=== PATIENT | male | born 1965 ===

== ENCOUNTER 2017-03-17 16:25 | Inpatient (IN) | payer MEDICARE, OTHER ==
[2017-03-17 17:07] VITALS: BMI 23.2
--- NOTE | 2017-03-17 22:08 | CP.PCM.HP ---
History of Present Illness - History of Present Illness History of Present Illness: PCP: Kayy Cordova MD Chief complaint: left side weakness/left facial droop The patient was seen and examined on the Rehab Unit HPI: The hx was obtained from review of the medical records. He is a 51 years old male with hx of DM II; HTN; Cirrhosis and ESRD on Hemo-dialysis MWF. He was transferred from the [facility] to the rehab Unit at the [facility] for rehabilitation and continued management. He was admitted to the [facility] on 03/12/17 and diagnosed with acute CVA with left Hemiparesis and slurred speech. His speech and motor strength of the left lower extremity is improving. PMH: ESRD MWF; HTN; DM II; Cardiomyopathy; CAD; PAD; Liver cirrhosis; CHF; Asthma; Left eye blindness; Anemia;Arthritis; Gastritis; depression PSH: Amputation of Left toe ( Hallux); Left Arm AV fistula; Left Inguinal hernia repair; Left eye surgery;Knee repair? SH: No smoking; No Alcohol use; No illegal drug use; Live with family FH: states No Family hx Allergies: Penicillin Medication: Reviewed Present on Admission - Present on Admission Any Indicators Present on Admission: No History of DVT/PE: No History of Uncontrolled Diabetes: No Urinary Catheter: No Decubitus Ulcer Present: No Review of Systems - Review of Systems Review of Systems: Review of systems limited because The patient is not answering all questions. - Constitutional Constitutional: absent: Chills, Fever - EENT Eyes: Requires Corrective Lenses. absent: Diplopia Ears: absent: Decreased Hearing Nose/Mouth/Throat: absent: Epistaxis - Cardiovascular Cardiovascular: absent: Chest Pain, Dyspnea - Respiratory Respiratory: absent: Cough - Gastrointestinal Gastrointestinal: Diarrhea. absent: Abdominal Pain, Vomiting - Neurological Neurological: Focal Weakness - Hematologic/Lymphatic Hematologic: absent: Easy Bleeding, Easy Bruising Past Patient History - Infectious Disease Hx of Infectious Diseases: None - Tetanus Immunizations Tetanus Immunization: Unknown - Past Medical History & Family History Past Medical History?: Yes - Past Social History Smoking Status: Never Smoked Chewing Tobacco Use: No Cigar Use: No Alcohol: None Drugs: Denies Home Situation {Lives}: With Family - CARDIAC Hx Cardiac Disorders: Yes Hx Congestive Heart Failure: Yes Hx Hypercholesterolemia: Yes Hx Hypertension: Yes - PULMONARY Hx Asthma: Yes Hx Pneumonia: Yes - NEUROLOGICAL Hx Neurological Disorder: No - HEENT Hx HEENT Problems: Yes Hx Blind: Yes (L eye) Other/Comment: left eye blind, Rt. eye vision blurred, uses eyeglasses for reading - RENAL Hx Chronic Kidney Disease: Yes - ENDOCRINE/METABOLIC Hx Diabetes Mellitus Type 2: Yes - HEMATOLOGICAL/ONCOLOGICAL Hx Anemia: Yes - INTEGUMENTARY Hx Dermatological Problems: No - MUSCULOSKELETAL/RHEUMATOLOGICAL Hx Arthritis: Yes Hx Falls: No - GASTROINTESTINAL Hx Gastritis: Yes - PSYCHIATRIC Hx Anxiety: Yes Hx Depression: Yes Hx Substance Use: No - SURGICAL HISTORY Hx Surgeries: Yes Hx Amputation: Yes (L Hallux amputation 2011) Hx Vascular Access Device: Yes Other/Comment: L inguinal hernia repairs x 2. L eye surgery. Left arm AV fistula - ANESTHESIA Hx Anesthesia: Yes Hx Anesthesia Reactions: No Hx Malignant Hyperthermia: No Meds Allergies/Adverse Reactions: Allergies Allergy/AdvReac Type Severity Reaction Status Date / Time Penicillins Allergy Verified 03/12/17 13:51 Results - Labs Result Diagrams: 03/18/17 05:20 03/18/17 05:20 Assessment & Plan - Assessment and Plan (Free Text) Assessment: #. Acute CVA #. ESRD MWF #. DM II #. CHF #. Cirrhosis #. HTN #.Anemia Plan: 51 years old male with hx of DM II; HTN; Cirrhosis and ESRD on Hemo-dialysis MWF. He was transferred from the [facility] to the rehab Unit at the [facility] for rehabilitation and continued management. He was admitted to the [facility] on 03/12/17 and diagnosed with acute CVA with left Hemiparesis and slurred speech. #. Acute CVA - Consult Dr Murillo [employer] - OT/PT Speech therapy #. ESRD MWF - Consult Dr Mancia [facility] for Dialysis [facility] #. DM II - Regular Insulin sliding scale according to Accucheck #. CHF - Lasix - Isosorbide Mononitrate #. Cirrhosis - Rifaximin - Lactulose #.Anemia of chronic kidney disease - follow Hb #. DVT prophylaxis with Heparin #.Code Status; Full - Date & Time Date: 03/17/17 Time: 22:08
[2017-03-18] MEDS: Fluticasone-Salmeterol 250-50mcg Diskus INH SCH ×3 (01:44→21:14)
[2017-03-18 05:54] LABS: BASO # 0.1 K/uL (0.0-0.2); BASO % 1.4 % (0.0-2.0); EOS # 0.2 K/uL (0.0-0.7); EOS % 2.5 % (0.0-4.0); HEMATOCRIT 28.6 % (35.0-51.0); MEAN CELL VOLUME 93.4 fl (80.0-94.0); MEAN CORPUSCULAR HEMOGLOBIN 31.2 pg (27.0-31.0); MEAN CORPUSCULAR HGB CONC 33.4 g/dL (33.0-37.0); MEAN PLATELET VOLUME 10.6 fl (7.2-11.7); MONO # 1.1 K/uL (0.0-0.8); NEUT % 63.1 % (50.0-75.0); NRBC % 0.4 % (0.0-0.0); RED CELL DISTRIBUTION WIDTH 16.6 % (11.5-14.5); WHITE BLOOD COUNT 6.3 K/uL (4.8-10.8)
[2017-03-18 06:12] LABS: ALB/GLOB RATIO 0.7 (1.0-2.1); BILIRUBIN,TOTAL 7.8 mg/dl (0.2-1.3); POTASSIUM 3.9 MMOL/L (3.6-5.0); TOTAL PROTEIN 7.3 G/DL (6.3-8.2)
[2017-03-18 06:14] LABS: PARTIAL THROMBOPLASTIN TIME 39.1 Seconds (25.6-37.1)
[2017-03-18] MEDS: Cholestyramine 4 gm/Pkt UD PO SCH ×3 (06:30→21:17)
[2017-03-18] MEDS: Insulin Regular 100 units/ml SC SCH ×4 (06:30→22:41)
[2017-03-18] MEDS ORDERED: Calcium Acetate 667 MG Capsule PO SCH (09:00)
[2017-03-18] MEDS ORDERED: VITAMIN C PO SCH (09:00)
[2017-03-18] MEDS ORDERED: VITAMIN B COMPLEX PO SCH (09:00)
[2017-03-18] MEDS ORDERED: Patient's Own Med (Multivitamins [Hexavitamin] 1 TAB) PO SCH (09:00)
[2017-03-18] MEDS: Ergocalciferol 50,000 Intl Units Cap PO SCH (09:05)
[2017-03-18] MEDS: Multivitamin With Minerals Tab PO SCH (09:06)
--- NOTE | 2017-03-18 09:57 | CP.PCM.CON ---
History of Present Illness - History of Present Illness History of Present Illness: This patient who is 51 years of age I was called to see him for chronic kidney disease on dialysis who is transferred from [facility] because of the left CVA weakness and for further treatment for dialysis. Patient transferred for acute rehabilitation Patient stated that he has been on dialysis since August of this year. And he is being receiving treatments 3 times a week Wednesday And he goes outpatient to [facility] PMH: ESRD MWF; HTN; DM II; Cardiomyopathy; CAD; PAD; Liver cirrhosis; CHF; Asthma; Left eye blindness; Anemia;Arthritis; Gastritis; depression PSH: Amputation of Left toe ( Hallux); Left Arm AV fistula; Left Inguinal hernia repair; Left eye surgery;Knee repair? SH: No smoking; No Alcohol use; No illegal drug use; Live with family FH: states No Family hx Allergies: Penicillin Review of Systems - Constitutional Constitutional: As Per HPI, Weakness. absent: Chills, Excessive Sweating - EENT Eyes: As Per HPI, Blurred Vision Nose/Mouth/Throat: As Per HPI - Cardiovascular Cardiovascular: As Per HPI. absent: Chest Pain, Chest Pain at Rest, Dyspnea - Respiratory Respiratory: absent: Cough - Gastrointestinal Gastrointestinal: absent: Abdominal Pain, Coffee Ground Emesis - Genitourinary Genitourinary: Nocturia. absent: Pyuria - Reproductive: Male Reproductive:Male: As Per HPI - Musculoskeletal Musculoskeletal: As Per HPI, Abnormal Gait, Muscle Weakness - Neurological Neurological: As Per HPI, Abnormal Gait - Psychiatric Psychiatric: As Per HPI - Hematologic/Lymphatic Hematologic: absent: Easy Bleeding Past Patient History - Infectious Disease Hx of Infectious Diseases: None - Tetanus Immunizations Tetanus Immunization: Unknown - Past Medical History & Family History Past Medical History?: Yes - Past Social History Smoking Status: Never Smoked Chewing Tobacco Use: No Cigar Use: No Alcohol: None Drugs: Denies Home Situation {Lives}: With Family - CARDIAC Hx Cardiac Disorders: Yes Hx Congestive Heart Failure: Yes Hx Hypercholesterolemia: Yes Hx Hypertension: Yes - PULMONARY Hx Asthma: Yes Hx Pneumonia: Yes - NEUROLOGICAL Hx Neurological Disorder: No - HEENT Hx HEENT Problems: Yes Hx Blind: Yes (L eye) Other/Comment: left eye blind, Rt. eye vision blurred, uses eyeglasses for reading - RENAL Hx Chronic Kidney Disease: Yes - ENDOCRINE/METABOLIC Hx Diabetes Mellitus Type 2: Yes - HEMATOLOGICAL/ONCOLOGICAL Hx Anemia: Yes - INTEGUMENTARY Hx Dermatological Problems: No - MUSCULOSKELETAL/RHEUMATOLOGICAL Hx Arthritis: Yes Hx Falls: No - GASTROINTESTINAL Hx Gastritis: Yes - PSYCHIATRIC Hx Anxiety: Yes Hx Depression: Yes Hx Substance Use: No - SURGICAL HISTORY Hx Surgeries: Yes Hx Amputation: Yes (L Hallux amputation 2011) Hx Vascular Access Device: Yes Other/Comment: L inguinal hernia repairs x 2. L eye surgery. Left arm AV fistula - ANESTHESIA Hx Anesthesia: Yes Hx Anesthesia Reactions: No Hx Malignant Hyperthermia: No Meds Allergies/Adverse Reactions: Allergies Allergy/AdvReac Type Severity Reaction Status Date / Time Penicillins Allergy Verified 03/12/17 13:51 - Medications Medications: Current Medications Acetaminophen (Tylenol 325mg Tab) 650 mg PO Q6 PRN PRN Reason: Headache Last Admin: 03/18/17 09:09 Dose: 650 mg Aspirin (Ecotrin) 81 mg PO DAILY [facility] Last Admin: 03/18/17 09:04 Dose: 81 mg Atorvastatin Calcium (Lipitor) 20 mg PO HS [facility] Calcitriol (Rocaltrol) 0.25 mcg PO DAILY [facility] Last Admin: 03/18/17 09:06 Dose: 0.25 mcg Calcium Acetate (Phoslo) 667 mg PO TID [facility] Cholestyramine Resin (Questran) 4 gm PO Q8 [facility] Last Admin: 03/18/17 06:30 Dose: 4 gm Clopidogrel Bisulfate (Plavix) 75 mg PO DAILY [facility] Last Admin: 03/18/17 09:05 Dose: 75 mg Ergocalciferol (Drisdol 50,000 Intl Units Cap) 1 cap PO QWK [facility] Last Admin: 03/18/17 09:05 Dose: 1 cap Famotidine (Pepcid) 20 mg PO 2100 [facility] Gabapentin (Neurontin) 300 mg PO DAILY [facility] Last Admin: 03/18/17 09:07 Dose: 300 mg Heparin Sodium (Porcine) (Heparin) 5,000 units SC Q8 [facility] PRN Reason: Protocol Last Admin: 03/18/17 06:29 Dose: 5,000 units Hydralazine HCl (Apresoline) 25 mg PO Q8 [facility] Last Admin: 03/18/17 06:28 Dose: 25 mg Insulin Human Regular (Humulin R) 0 units SC ACHS [facility] PRN Reason: Protocol Last Admin: 03/18/17 06:30 Dose: Not Given Isosorbide Mononitrate (Imdur) 60 mg PO DAILY [facility] Last Admin: 03/18/17 09:05 Dose: 60 mg Lactulose (Enulose) 20 gm PO Q8 [facility] Last Admin: 03/18/17 06:27 Dose: Not Given Multivitamins/Minerals (Therapeutic-M Tab) 1 tab PO DAILY [facility] Last Admin: 03/18/17 09:06 Dose: 1 tab Rifaximin (Xifaxan) 550 mg PO BID [facility] PRN Reason: Protocol Last Admin: 03/18/17 09:04 Dose: 550 mg Fluticasone/Salmeterol (Advair Diskus 250/50) 1 puff INH Q12 [facility] Last Admin: 03/18/17 09:03 Dose: 1 puff Physical Exam - Constitutional Appears: No Acute Distress - ENT Exam ENT Exam: Mucous Membranes Moist - Respiratory Exam Respiratory Exam: NORMAL BREATHING PATTERN. absent: Rales - Cardiovascular Exam Cardiovascular Exam: absent: JVD, Rubs - GI/Abdominal Exam GI & Abdominal Exam: Distended, Normal Bowel Sounds Additional comments: ascites - Extremities Exam Extremities exam: Negative for: calf tenderness - Back Exam Back exam: absent: CVA tenderness (L), CVA tenderness (R) - Neurological Exam Neurological exam: Abnormal Gait, Alert - Psychiatric Exam Additional comments: weakness on the left side Results - Vital Signs Recent Vital Signs: Last Vital Signs Temp 97.1 F L 03/18/17 09:23 Pulse 87 03/18/17 09:23 Resp 19 03/18/17 09:23 BP 128/79 03/18/17 09:23 Pulse Ox 96 03/18/17 09:23 - Labs Result Diagrams: 03/18/17 05:20 03/18/17 05:20 Labs: Laboratory Results - last 24 hr 03/18/17 03/18/17 03/18/17 05:19 05:20 05:20 WBC 6.3 RBC 3.07 L Hgb 9.6 L Hct 28.6 L MCV 93.4 MCH 31.2 H MCHC 33.4 RDW 16.6 H Plt Count 133 MPV 10.6 Neut % (Auto) 63.1 Lymph % (Auto) 16.0 L Perkins % (Auto) 17.0 H Eos % (Auto) 2.5 Baso % (Auto) 1.4 Neut # 4.0 Lymph # 1.0 [place] # 1.1 H Eos # 0.2 Baso # 0.1 PT INR APTT Sodium 141 Potassium 3.9 Chloride 101 Carbon Dioxide 29 Anion Gap 15 BUN 22 H Creatinine 2.4 H Est GFR ( Amer) 35 Est GFR (Non-Af Amer) 29 POC Glucose (mg/dL) 103 Random Glucose 94 Calcium 9.0 Total Bilirubin 7.8 H AST 42 ALT 26 Alkaline Phosphatase 1125 H Total Protein 7.3 Albumin 2.9 L Globulin 4.4 H Albumin/Globulin Ratio 0.7 L 03/18/17 05:20 WBC RBC Hgb Hct MCV MCH MCHC RDW Plt Count MPV Neut % (Auto) Lymph % (Auto) [place] % (Auto) Eos % (Auto) Baso % (Auto) Neut # Lymph # [place] # Eos # Baso # PT 17.3 H INR 1.5 H APTT 39.1 H Sodium Potassium Chloride Carbon Dioxide Anion Gap BUN Creatinine Est GFR ( Amer) Est GFR (Non-Af Amer) POC Glucose (mg/dL) Random Glucose Calcium Total Bilirubin AST ALT Alkaline Phosphatase Total Protein Albumin Globulin Albumin/Globulin Ratio Assessment & Plan (1) CKD (chronic kidney disease) requiring chronic dialysis Assessment and Plan: Patient with end stage renal disease on dialysis Wednesday transferred for acute rehabilitation for acute CVA. Patient has multitude of medical problem related to liver cirrhosis ascites Diabetes among other things as noted in the H and P The plan from renal standpoint of view we will proceed with the dialysis I reviewed the blood work serum creatinine not very high but the patient has ascites. Status: Acute (2) CVA (cerebral vascular accident) Status: Acute
--- NOTE | 2017-03-18 17:04 | PCM.OPOC ---
Physiatry Overall Plan of Care - Overall Plan of Care Estimated Length of Stay in Weeks: 3 Rehab Impairment: Mobility, Gait, Speech, Balance, Coordination Etiologic Diagnosis: Cerebrovascular Accident Rehab/Medical Prognosis: Fair - Anticipated Interventions Physical Therapy:: Yes Occupational Therapy:: Yes Speech Therapy:: Yes Recreational Therapy:: Yes - Therapy Goals Bed Mobility: Supervision Ambulation: Supervision Functional Positional Changes:: Supervision - Discharge Plan Identification of Barriers to Discharge: Home Situation Discharge Destination: Home
--- NOTE | 2017-03-18 17:08 | CP.PCM.CON ---
History of Present Illness - History of Present Illness History of Present Illness: Dr Murillo PMR consultation on Rory Blanco, born 1965, who has been admitted to [facility] for acute inpatient rehabilitation following a right CVA with left HP. He has multiple medical risk factors. He is right hand dominant. Review of Systems - Constitutional Constitutional: Daytime Sleepiness. absent: Anorexia, Chills - EENT Nose/Mouth/Throat: absent: Nasal Congestion, Nasal Discharge - Cardiovascular Cardiovascular: absent: Chest Pain - Respiratory Respiratory: absent: Cough, Dyspnea - Gastrointestinal Gastrointestinal: Bloating. absent: Abdominal Pain - Neurological Neurological: absent: Abnormal Movements, Radicular Pain - Psychiatric Psychiatric: absent: Anxiety Past Patient History - Infectious Disease Hx of Infectious Diseases: None - Tetanus Immunizations Tetanus Immunization: Unknown - Past Medical History & Family History Past Medical History?: Yes - Past Social History Smoking Status: Never Smoked Chewing Tobacco Use: No Cigar Use: No Alcohol: None Drugs: Denies Home Situation {Lives}: With Family - CARDIAC Hx Cardiac Disorders: Yes Hx Hypercholesterolemia: Yes Hx Hypertension: Yes - PULMONARY Hx Asthma: Yes Hx Pneumonia: Yes - NEUROLOGICAL HX Cerebrovascular Accident: Yes - HEENT Hx HEENT Problems: Yes Hx Blind: Yes (L eye) Other/Comment: left eye blind, Rt. eye vision blurred, uses eyeglasses for reading - RENAL Hx Renal Failure: Yes - ENDOCRINE/METABOLIC Hx Diabetes Mellitus Type 2: Yes - HEMATOLOGICAL/ONCOLOGICAL Hx Anemia: Yes - INTEGUMENTARY Hx Dermatological Problems: No - MUSCULOSKELETAL/RHEUMATOLOGICAL Hx Arthritis: Yes Hx Falls: No - GASTROINTESTINAL Hx Gastritis: Yes - PSYCHIATRIC Hx Anxiety: Yes Hx Depression: Yes Hx Substance Use: No - SURGICAL HISTORY Hx Surgeries: Yes Hx Amputation: Yes (L Hallux amputation 2011) Hx Vascular Access Device: Yes Other/Comment: L inguinal hernia repairs x 2. L eye surgery. Left arm AV fistula - ANESTHESIA Hx Anesthesia: Yes Hx Anesthesia Reactions: No Hx Malignant Hyperthermia: No Meds Allergies/Adverse Reactions: Allergies Allergy/AdvReac Type Severity Reaction Status Date / Time Penicillins Allergy Verified 03/12/17 13:51 - Medications Medications: Current Medications Acetaminophen (Tylenol 325mg Tab) 650 mg PO Q6 PRN PRN Reason: Headache Last Admin: 03/18/17 09:09 Dose: 650 mg Aspirin (Ecotrin) 81 mg PO DAILY [facility] Last Admin: 03/18/17 09:04 Dose: 81 mg Atorvastatin Calcium (Lipitor) 20 mg PO HS [facility] Calcitriol (Rocaltrol) 0.25 mcg PO DAILY [facility] Last Admin: 03/18/17 09:06 Dose: 0.25 mcg Calcium Acetate (Phoslo) 667 mg PO TID [facility] Last Admin: 03/18/17 16:57 Dose: 667 mg Cholestyramine Resin (Questran) 4 gm PO Q8 [facility] Last Admin: 03/18/17 14:26 Dose: 4 gm Clopidogrel Bisulfate (Plavix) 75 mg PO DAILY [facility] Last Admin: 03/18/17 09:05 Dose: 75 mg Epoetin Brian (Procrit) 4,000 unit IV MWF [facility] Ergocalciferol (Drisdol 50,000 Intl Units Cap) 1 cap PO QWK [facility] Last Admin: 03/18/17 09:05 Dose: 1 cap Famotidine (Pepcid) 20 mg PO 2100 [facility] Gabapentin (Neurontin) 300 mg PO DAILY [facility] Last Admin: 03/18/17 09:07 Dose: 300 mg Heparin Sodium (Porcine) (Heparin) 5,000 units SC Q8 [facility] PRN Reason: Protocol Last Admin: 03/18/17 14:26 Dose: 5,000 units Hydralazine HCl (Apresoline) 25 mg PO Q8 [facility] Last Admin: 03/18/17 14:20 Dose: 25 mg Insulin Human Regular (Humulin R) 0 units SC ACHS [facility] PRN Reason: Protocol Last Admin: 03/18/17 16:56 Dose: 1 unit Isosorbide Mononitrate (Imdur) 60 mg PO DAILY [facility] Last Admin: 03/18/17 09:05 Dose: 60 mg Lactulose (Enulose) 20 gm PO Q8 [facility] Last Admin: 03/18/17 14:27 Dose: 20 gm Multivitamins/Minerals (Therapeutic-M Tab) 1 tab PO DAILY [facility] Last Admin: 03/18/17 09:06 Dose: 1 tab Rifaximin (Xifaxan) 550 mg PO BID [facility] PRN Reason: Protocol Last Admin: 03/18/17 16:57 Dose: 550 mg Fluticasone/Salmeterol (Advair Diskus 250/50) 1 puff INH Q12 [facility] Last Admin: 03/18/17 09:03 Dose: 1 puff Physical Exam - Constitutional Appears: Non-toxic, No Acute Distress - Head Exam Head Exam: ATRAUMATIC, NORMAL INSPECTION, NORMOCEPHALIC - Eye Exam Eye Exam: EOMI - ENT Exam ENT Exam: Mucous Membranes Moist - Respiratory Exam Respiratory Exam: NORMAL BREATHING PATTERN - Cardiovascular Exam Cardiovascular Exam: REGULAR RHYTHM - GI/Abdominal Exam GI & Abdominal Exam: Normal Bowel Sounds - Extremities Exam Extremities exam: Negative for: calf tenderness - Neurological Exam Neurological exam: Alert - Psychiatric Exam Psychiatric exam: Flat Affect Results - Vital Signs Recent Vital Signs: Last Vital Signs Temp 97.1 F L 03/18/17 09:23 Pulse 77 03/18/17 14:20 Resp 19 03/18/17 09:23 BP 131/82 03/18/17 14:20 Pulse Ox 96 03/18/17 09:23 - Labs Result Diagrams: 03/18/17 05:20 03/18/17 05:20 Labs: Laboratory Results - last 24 hr 03/18/17 03/18/17 03/18/17 05:19 05:20 05:20 WBC 6.3 RBC 3.07 L Hgb 9.6 L Hct 28.6 L MCV 93.4 MCH 31.2 H MCHC 33.4 RDW 16.6 H Plt Count 133 MPV 10.6 Neut % (Auto) 63.1 Lymph % (Auto) 16.0 L [place] % (Auto) 17.0 H Eos % (Auto) 2.5 Baso % (Auto) 1.4 Neut # 4.0 Lymph # 1.0 [place] # 1.1 H Eos # 0.2 Baso # 0.1 PT INR APTT Sodium 141 Potassium 3.9 Chloride 101 Carbon Dioxide 29 Anion Gap 15 BUN 22 H Creatinine 2.4 H Est GFR ( Amer) 35 Est GFR (Non-Af Amer) 29 POC Glucose (mg/dL) 103 Random Glucose 94 Calcium 9.0 Phosphorus Total Bilirubin 7.8 H AST 42 ALT 26 Alkaline Phosphatase 1125 H Total Protein 7.3 Albumin 2.9 L Globulin 4.4 H Albumin/Globulin Ratio 0.7 L 03/18/17 03/18/17 03/18/17 05:20 05:20 12:04 WBC RBC Hgb Hct MCV MCH MCHC RDW Plt Count MPV Neut % (Auto) Lymph % (Auto) [place] % (Auto) Eos % (Auto) Baso % (Auto) Neut # Lymph # [place] # Eos # Baso # PT 17.3 H INR 1.5 H APTT 39.1 H Sodium Potassium Chloride Carbon Dioxide Anion Gap BUN Creatinine Est GFR ( Amer) Est GFR (Non-Af Amer) POC Glucose (mg/dL) 184 H Random Glucose Calcium Phosphorus 4.0 Total Bilirubin AST ALT Alkaline Phosphatase Total Protein Albumin Globulin Albumin/Globulin Ratio 03/18/17 15:31 WBC RBC Hgb Hct MCV MCH MCHC RDW Plt Count MPV Neut % (Auto) Lymph % (Auto) [place] % (Auto) Eos % (Auto) Baso % (Auto) Neut # Lymph # [place] # Eos # Baso # PT INR APTT Sodium Potassium Chloride Carbon Dioxide Anion Gap BUN Creatinine Est GFR ( Amer) Est GFR (Non-Af Amer) POC Glucose (mg/dL) 179 H Random Glucose Calcium Phosphorus Total Bilirubin AST ALT Alkaline Phosphatase Total Protein Albumin Globulin Albumin/Globulin Ratio Assessment & Plan - Assessment and Plan (Free Text) Assessment: Patient with prior level of decreased function with left HP, but than developed worsening function and weakness in HD new right BG infarct Manual motor testing is better than gravity at about 3+/5 but inconsistent PT noted that he was max A for most activities PT/OT to continue to help increase functional independence Team conference for d/c planning Pain: controlled Vascular: no evidence of DVT GI: No evidence of constipation or diarrhea Patient is an excellent acute rehabilitation candidate and will have focused speech, PT, OT and recreational therapy to help facilitate a safe and appropriate d/c plan impairment code 01.1
[2017-03-18] MEDS ORDERED: Patient's Own Med (Rosuvastatin Calcium [Crestor] 10 MG) PO SCH (22:00)
[2017-03-19] MEDS: Cholestyramine 4 gm/Pkt UD PO SCH ×3 (06:07→23:12)
[2017-03-19] MEDS: Fluticasone-Salmeterol 250-50mcg Diskus INH SCH ×2 (08:30→23:07)
[2017-03-19] MEDS: Multivitamin With Minerals Tab PO SCH (08:31)
[2017-03-19] MEDS: Insulin Regular 100 units/ml SC SCH ×4 (08:32→21:35)
--- NOTE | 2017-03-19 12:07 | CP.PCM.PN ---
Subjective - Date & Time of Evaluation Date of Evaluation: 03/19/17 Time of Evaluation: 12:03 - Subjective Subjective: this is a 51-year-old male seen and examined at bedside for acute CVA, ESRD. Patient has no complaints this morning states he is feeling well. Is tolerating therapy well. Denies chest pain any shortness of breath. Hemodynamically stable. Objective - Vital Signs/Intake and Output Vital Signs (last 24 hours): Temp Pulse Resp BP Pulse Ox 98.0 F 83 20 136/87 97 03/18/17 20:08 03/19/17 06:07 03/18/17 20:08 03/19/17 06:07 03/18/17 20:08 Physical exam: Constitutional- cooperative, awake, alert. Head- NCAT, PERRL Eye- PERRL, normal accommodation ENT- normal exam, MMM. Neck- normal inspection, supple, no JVD Respiratory- CTAB, no wheezes rales rhonchi Cardiovascular- RRR, +S1, +S2 no MRG GI/Abdominal- normal bowel sounds, soft, no mass, no hsm Skin- warm, dry Extremities Exam- normal capillary refill, normal inspection Neurological Exam- alert, awake Psych- normal mood, normal affect - Medications Medications: Current Medications Acetaminophen (Tylenol 325mg Tab) 650 mg PO Q6 PRN PRN Reason: pain 1-10 Aspirin (Ecotrin) 81 mg PO DAILY [facility] Last Admin: 03/19/17 08:31 Dose: 81 mg Atorvastatin Calcium (Lipitor) 20 mg PO HS [facility] Last Admin: 03/18/17 21:16 Dose: 20 mg Calcitriol (Rocaltrol) 0.25 mcg PO DAILY [facility] Last Admin: 03/19/17 08:31 Dose: 0.25 mcg Calcium Acetate (Phoslo) 667 mg PO TID [facility] Last Admin: 03/19/17 08:31 Dose: 667 mg Cholestyramine Resin (Questran) 4 gm PO Q8 [facility] Last Admin: 03/19/17 06:07 Dose: 4 gm Clopidogrel Bisulfate (Plavix) 75 mg PO DAILY [facility] Last Admin: 03/19/17 08:31 Dose: 75 mg Epoetin Brian (Procrit) 4,000 unit IV MWF [facility] Ergocalciferol (Drisdol 50,000 Intl Units Cap) 1 cap PO QWK [facility] Last Admin: 03/18/17 09:05 Dose: 1 cap Famotidine (Pepcid) 20 mg PO 2100 [facility] Last Admin: 03/18/17 21:16 Dose: 20 mg Gabapentin (Neurontin) 300 mg PO DAILY [facility] Last Admin: 03/19/17 08:31 Dose: 300 mg Heparin Sodium (Porcine) (Heparin) 5,000 units SC Q8 [facility] PRN Reason: Protocol Last Admin: 03/19/17 06:07 Dose: 5,000 units Hydralazine HCl (Apresoline) 25 mg PO Q8 [facility] Last Admin: 03/19/17 06:07 Dose: 25 mg Insulin Human Regular (Humulin R) 0 units SC ACHS [facility] PRN Reason: Protocol Last Admin: 03/19/17 08:32 Dose: Not Given Isosorbide Mononitrate (Imdur) 60 mg PO DAILY [facility] Last Admin: 03/19/17 08:32 Dose: 60 mg Lactulose (Enulose) 20 gm PO Q8 [facility] Last Admin: 03/19/17 06:07 Dose: 20 gm Multivitamins/Minerals (Therapeutic-M Tab) 1 tab PO DAILY [facility] Last Admin: 03/19/17 08:31 Dose: 1 tab Rifaximin (Xifaxan) 550 mg PO BID [facility] PRN Reason: Protocol Last Admin: 03/19/17 08:34 Dose: 550 mg Fluticasone/Salmeterol (Advair Diskus 250/50) 1 puff INH Q12 [facility] Last Admin: 03/19/17 08:30 Dose: 1 puff - Labs Labs: 03/18/17 05:20 03/18/17 05:20 PT 17.3 Seconds (9.8-13.1) H 03/18/17 05:20 INR 1.5 (0.9-1.2) H 03/18/17 05:20 APTT 39.1 Seconds (25.6-37.1) H 03/18/17 05:20 Assessment and Plan - Assessment and Plan (Free Text) Plan: 51 years old male with hx of DM II; HTN; Cirrhosis and ESRD on Hemo-dialysis MWF. He was transferred from the [facility] to the rehab Unit at the [facility] for rehabilitation and continued management. He was admitted to the [facility] on 03/12/17 and diagnosed with acute CVA with left Hemiparesis and slurred speech. #. Acute CVA - Consult Dr Murillo Copyright Manager - OT/PT Speech therapy continue aspirin and Plavix, and Lipitor #. ESRD MWF - Consult Dr Mancia Nephrology for Dialysis [facility] Continue PhosLo, calcitriol, Procrit #. DM II - Regular Insulin sliding scale according to Accucheck #. CHF - Lasix - Isosorbide Mononitrate #. Cirrhosis - Rifaximin - Lactulose Continue lactulose Continue cholestyramine #. COPD Continue Advair #.Anemia of chronic kidney disease - follow Hb #. DVT prophylaxis with Heparin #.Code Status; Full
--- NOTE | 2017-03-19 14:04 | CP.PCM.PN ---
Subjective - Date & Time of Evaluation Date of Evaluation: 03/19/17 Time of Evaluation: 14:01 - Subjective Subjective: Patient sitting up in the chair and receiving physiotherapy Patient is conscious and oriented No shortness of breath or difficulty breathing Appetite is reported to be okay Objective - Vital Signs/Intake and Output Vital Signs (last 24 hours): Temp Pulse Resp BP Pulse Ox 98 F 82 20 130/70 98 03/19/17 10:00 03/19/17 10:00 03/19/17 10:00 03/19/17 10:00 03/19/17 10:00 - Medications Medications: Current Medications Acetaminophen (Tylenol 325mg Tab) 650 mg PO Q6 PRN PRN Reason: pain 1-10 Aspirin (Ecotrin) 81 mg PO DAILY [facility] Last Admin: 03/19/17 08:31 Dose: 81 mg Atorvastatin Calcium (Lipitor) 20 mg PO HS [facility] Last Admin: 03/18/17 21:16 Dose: 20 mg Calcitriol (Rocaltrol) 0.25 mcg PO DAILY [facility] Last Admin: 03/19/17 08:31 Dose: 0.25 mcg Calcium Acetate (Phoslo) 667 mg PO TID [facility] Last Admin: 03/19/17 08:31 Dose: 667 mg Cholestyramine Resin (Questran) 4 gm PO Q8 [facility] Last Admin: 03/19/17 06:07 Dose: 4 gm Clopidogrel Bisulfate (Plavix) 75 mg PO DAILY [facility] Last Admin: 03/19/17 08:31 Dose: 75 mg Epoetin Brian (Procrit) 4,000 unit IV MWF [facility] Ergocalciferol (Drisdol 50,000 Intl Units Cap) 1 cap PO QWK [facility] Last Admin: 03/18/17 09:05 Dose: 1 cap Famotidine (Pepcid) 20 mg PO 2100 [facility] Last Admin: 03/18/17 21:16 Dose: 20 mg Gabapentin (Neurontin) 300 mg PO DAILY [facility] Last Admin: 03/19/17 08:31 Dose: 300 mg Heparin Sodium (Porcine) (Heparin) 5,000 units SC Q8 [facility] PRN Reason: Protocol Last Admin: 03/19/17 13:25 Dose: 5,000 units Hydralazine HCl (Apresoline) 25 mg PO Q8 [facility] Last Admin: 03/19/17 06:07 Dose: 25 mg Insulin Human Regular (Humulin R) 0 units SC ACHS [facility] PRN Reason: Protocol Last Admin: 03/19/17 11:30 Dose: 3 unit Isosorbide Mononitrate (Imdur) 60 mg PO DAILY [facility] Last Admin: 03/19/17 08:32 Dose: 60 mg Lactulose (Enulose) 20 gm PO Q8 [facility] Last Admin: 03/19/17 13:25 Dose: 20 gm Multivitamins/Minerals (Therapeutic-M Tab) 1 tab PO DAILY [facility] Last Admin: 03/19/17 08:31 Dose: 1 tab Rifaximin (Xifaxan) 550 mg PO BID [facility] PRN Reason: Protocol Last Admin: 03/19/17 08:34 Dose: 550 mg Fluticasone/Salmeterol (Advair Diskus 250/50) 1 puff INH Q12 [facility] Last Admin: 03/19/17 08:30 Dose: 1 puff - Labs Labs: 03/18/17 05:20 03/18/17 05:20 PT 17.3 Seconds (9.8-13.1) H 03/18/17 05:20 INR 1.5 (0.9-1.2) H 03/18/17 05:20 APTT 39.1 Seconds (25.6-37.1) H 03/18/17 05:20 - Constitutional Appears: No Acute Distress - ENT Exam ENT Exam: Mucous Membranes Moist - Respiratory Exam Respiratory Exam: NORMAL BREATHING PATTERN. absent: Chest Wall Tenderness, Rales, Wheezes - Cardiovascular Exam Cardiovascular Exam: absent: JVD, Rubs - GI/Abdominal Exam GI & Abdominal Exam: Soft, Normal Bowel Sounds. absent: Guarding - Extremities Exam Extremities Exam: absent: Calf Tenderness - Back Exam Back Exam: absent: CVA tenderness (L), CVA tenderness (R) - Neurological Exam Neurological Exam: Alert - Psychiatric Exam Psychiatric exam: Normal Affect - Skin Skin Exam: absent: Cyanosis Assessment and Plan (1) CKD (chronic kidney disease) requiring chronic dialysis Assessment & Plan: End stage renal disease on maintenance hemodialysis 3 times a week as outpatient Patient scheduled to have hemodialysis in about one hour or so after completing physiotherapy Patient was admitted with CVA Blood pressure noted Medications reviewed Discussed with the nurse in the floor Also discussed the case with the dialysis nurse The rest of the medical problem as noted ESRD MWF; HTN; DM II; Cardiomyopathy; CAD; PAD; Liver cirrhosis; CHF; Asthma; Left eye blindness; Anemia;Arthritis; Gastritis; depression PSH: Amputation of Left toe ( [place]); Left Arm AV fistula; Left Inguinal hernia repair; Left eye surgery;Knee repair? SH: No smoking; No Alcohol use; No illegal drug use; Live with family Status: Acute (2) CVA (cerebral vascular accident) Status: Acute
[2017-03-19] MEDS: Epoetin Alfa 4000 UNIT/ML Inj IV SCH (18:30)
--- NOTE | 2017-03-19 19:27 | CON ---
DATE: NEUROLOGY CONSULTATION REASON FOR CONSULTATION: Cerebrovascular accident. HISTORY OF PRESENT ILLNESS: The patient is a 51-year-old male who has been asked for evaluation of stroke. The patient was admitted in [facility] with left-sided hemiparesis. The patient is a dialysis patient. The patient was evaluated in the [facility] and was subsequently transferred to [facility] for physical therapy. The patient had almost complete paralysis on the left side; however, it has gotten better over the last few days. The speech is still slightly slurred. He denies any headaches or dizziness. Denies any other complaints. REVIEW OF SYSTEMS: Denies any headache, dizziness, chest pain, shortness of breath, abdominal pain, constipation, diarrhea, cough, sputum production. Positive for weakness on the left side. PAST MEDICAL HISTORY: Includes end-stage renal disease, on hemodialysis; hypertension; diabetes mellitus; peripheral artery disease; liver cirrhosis; asthma; left eye blindness; and depression. PAST SURGICAL HISTORY: Include amputation of the left toe, left arm AV fistula, left inguinal hernia repair, left eye surgery. CURRENT MEDICATIONS: Include hydralazine, ergocalciferol, aspirin, lactulose, subcutaneous heparin, insulin, isosorbide mononitrate, Lipitor, Neurontin, famotidine, Plavix, cholestyramine, multivitamin, rifaximin, and Tylenol p.r.n. ALLERGIES: PENICILLIN. SOCIAL HISTORY: Denies smoking, use of alcohol, or illicit drugs. FAMILY HISTORY: Reviewed and noncontributory to the case. PHYSICAL EXAMINATION: GENERAL: The patient is a middle-aged male, sitting in no acute distress. VITAL SIGNS: His blood pressure is 130/70, heart rate is 82 per minute, breathing at a rate of 16 per minute, temperature is 98 degrees Fahrenheit. HEENT: Normocephalic and atraumatic. NECK: Supple. There are no carotid bruits. LUNGS: Clear. CARDIOVASCULAR SYSTEM: S1 and S2 audible. No murmurs. ABDOMEN: Soft and nontender. Bowel sounds present. NEUROLOGIC: Mental status: The patient is awake, alert, oriented to time, place and person. Speech is slightly dysarthric. He follows all simple commands. Cranial nerves: Extraocular movements are intact. There is a slight decrease in nasolabial fold on the left side. Tongue is midline. Motor: Tone is normal. There is slight left hemiparesis with power about 3 to 4/5 in the upper extremity and 3/5 in the lower extremity. Plantars downgoing on the right, left toe is amputated. LABORATORY DATA: Reviewed. Shows WBC 6.3, hemoglobin 9.6, hematocrit 28.6, and platelets of 133. Sodium is 141, potassium 3.9, chloride 101, carbon dioxide 29, BUN of 22, creatinine 2.4, and glucose of 94. IMPRESSION: 1. Cerebrovascular accident with right basal ganglionic infarct with left hemiparesis. 2. End-stage renal disease, on hemodialysis. RECOMMENDATIONS: 1. The patient to be continued on aspirin and Plavix. 2. The patient also to be continued on statins. 3. The patient has shown improvement in his left-sided weakness. 4. The patient to have aggressive physical therapy. 5. Please continue other treatment and supportive care. Thank you for the opportunity to participate in the care of this patient. Tom Eller MD
[2017-03-20] MEDS: Cholestyramine 4 gm/Pkt UD PO SCH ×3 (05:10→21:50)
[2017-03-20] MEDS: Insulin Regular 100 units/ml SC SCH ×5 (06:40→21:15)
[2017-03-20] MEDS: Fluticasone-Salmeterol 250-50mcg Diskus INH SCH ×2 (08:33→21:50)
[2017-03-20] MEDS: Multivitamin With Minerals Tab PO SCH (08:34)
[2017-03-20 13:38] LABS: BASO # 0.1 K/uL (0.0-0.2); EOS # 0.1 K/uL (0.0-0.7); EOS % 1.4 % (0.0-4.0); HEMATOCRIT 31.5 % (35.0-51.0); LYMPH # 1.2 K/uL (1.0-4.3); LYMPH % 17.6 % (20.0-40.0); MEAN CELL VOLUME 91.8 fl (80.0-94.0); MEAN CORPUSCULAR HEMOGLOBIN 30.9 pg (27.0-31.0); MEAN CORPUSCULAR HGB CONC 33.7 g/dL (33.0-37.0); MEAN PLATELET VOLUME 11.3 fl (7.2-11.7); MONO % 15.5 % (0.0-10.0); NEUT # 4.3 K/uL (1.8-7.0); NEUT % 63.5 % (50.0-75.0); NRBC % 0.1 % (0.0-0.0); RED CELL DISTRIBUTION WIDTH 16.1 % (11.5-14.5); WHITE BLOOD COUNT 6.8 K/uL (4.8-10.8)
[2017-03-20 13:45] LABS: ALB/GLOB RATIO 0.7 (1.0-2.1); BILIRUBIN,TOTAL 7.7 mg/dl (0.2-1.3); CALCIUM 9.2 mg/dL (8.4-10.2)
--- NOTE | 2017-03-20 19:08 | CP.PCM.PN ---
Subjective - Date & Time of Evaluation Date of Evaluation: 03/20/17 Time of Evaluation: 12:20 - Subjective Subjective: Was called from nurse at 12:20 pm that the patient was experiencing chest pain. Came and evaluated patient. He stated that he was having on again off again chest pain feeling like a pressure, moderate in severity, migrating pain. He denies radiation to left arm or up into the left jaw. EKG was performed and showed normal sinus rhythm with nonspecific changes, no acute changes. Troponin was performed and found to be undetectable. Patient's cp shortly thereafter resolved without intervention. Patient's vitals remained stable throughout. He denies sob, weakness, headache, palpitations. Patient is comfortable. Objective - Vital Signs/Intake and Output Vital Signs (last 24 hours): Temp Pulse Resp BP Pulse Ox 96.7 F L 99 H 19 150/100 H 94 L 03/20/17 08:13 03/20/17 13:10 03/20/17 08:13 03/20/17 13:10 03/20/17 08:13 - Medications Medications: Current Medications Acetaminophen (Tylenol 325mg Tab) 650 mg PO Q6 PRN PRN Reason: pain 1-10 Aspirin (Ecotrin) 81 mg PO DAILY [facility] Last Admin: 03/20/17 08:34 Dose: 81 mg Atorvastatin Calcium (Lipitor) 20 mg PO HS [facility] Last Admin: 03/19/17 23:11 Dose: 20 mg Calcitriol (Rocaltrol) 0.25 mcg PO DAILY [facility] Last Admin: 03/20/17 08:34 Dose: 0.25 mcg Calcium Acetate (Phoslo) 667 mg PO TID [facility] Last Admin: 03/20/17 17:16 Dose: 667 mg Cholestyramine Resin (Questran) 4 gm PO Q8 [facility] Last Admin: 03/20/17 14:00 Dose: 4 gm Clopidogrel Bisulfate (Plavix) 75 mg PO DAILY [facility] Last Admin: 03/20/17 08:35 Dose: 75 mg Epoetin Brian (Procrit) 4,000 unit IV MWF [facility] Last Admin: 03/19/17 18:30 Dose: 4,000 unit Ergocalciferol (Drisdol 50,000 Intl Units Cap) 1 cap PO QWK [facility] Last Admin: 03/18/17 09:05 Dose: 1 cap Famotidine (Pepcid) 20 mg PO 2100 [facility] Last Admin: 03/19/17 23:12 Dose: 20 mg Gabapentin (Neurontin) 300 mg PO DAILY [facility] Last Admin: 03/20/17 08:34 Dose: 300 mg Heparin Sodium (Porcine) (Heparin) 5,000 units SC Q8 [facility] PRN Reason: Protocol Last Admin: 03/20/17 13:11 Dose: 5,000 units Hydralazine HCl (Apresoline) 25 mg PO Q8 [facility] Last Admin: 03/20/17 13:10 Dose: 25 mg Insulin Human Regular (Humulin R) 0 units SC ACHS [facility] PRN Reason: Protocol Last Admin: 03/20/17 17:14 Dose: 1 unit Isosorbide Mononitrate (Imdur) 60 mg PO DAILY [facility] Last Admin: 03/20/17 08:36 Dose: 60 mg Lactulose (Enulose) 20 gm PO Q8 [facility] Last Admin: 03/20/17 13:10 Dose: 20 gm Multivitamins/Minerals (Therapeutic-M Tab) 1 tab PO DAILY [facility] Last Admin: 03/20/17 08:34 Dose: 1 tab Rifaximin (Xifaxan) 550 mg PO BID [facility] PRN Reason: Protocol Last Admin: 03/20/17 17:15 Dose: 550 mg Fluticasone/Salmeterol (Advair Diskus 250/50) 1 puff INH Q12 [facility] Last Admin: 03/20/17 08:33 Dose: 1 puff - Labs Labs: 03/20/17 12:30 03/20/17 13:10 PT 17.3 Seconds (9.8-13.1) H 03/18/17 05:20 INR 1.5 (0.9-1.2) H 03/18/17 05:20 APTT 39.1 Seconds (25.6-37.1) H 03/18/17 05:20 - Additional Findings Additional findings: Physical exam: Constitutional- cooperative, awake, alert. Head- NCAT, PERRL Eye- PERRL, normal accommodation ENT- normal exam, MMM. Neck- normal inspection, supple, no JVD Respiratory- CTAB, no wheezes rales rhonchi Cardiovascular- RRR, +S1, +S2 no MRG GI/Abdominal- normal bowel sounds, soft, no mass, no hsm Skin- warm, dry Extremities Exam- normal capillary refill, normal inspection Neurological Exam- alert, stable gait Psych- normal mood, normal affect Assessment and Plan - Assessment and Plan (Free Text) Plan: Assessment and Plan - Assessment and Plan (Free Text) Plan: 51 years old male with hx of DM II; HTN; Cirrhosis and ESRD on Hemo-dialysis MWF. He was transferred from the [facility] to the rehab Unit at the [facility] for rehabilitation and continued management. He was admitted to the [facility] on 03/12/17 and diagnosed with acute CVA with left Hemiparesis and slurred speech. #. 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 Chest pain- unclear etiology - patient hemodynamically stable and comfortable - EKG with no acute changes - Troponin negative - Self resolved - no further workup at this time #. ESRD MWF - Consult Dr Mancia Nephrology for Dialysis [facility] Continue PhosLo, calcitriol, Procrit #. DM II - Regular Insulin sliding scale according to Accucheck #. CHF - Lasix - Isosorbide Mononitrate #. Cirrhosis - Rifaximin - Lactulose Continue lactulose Continue cholestyramine #. COPD Continue Advair #.Anemia of chronic kidney disease - follow Hb #. DVT prophylaxis with Heparin #.Code Status; Full
[2017-03-21] MEDS: Cholestyramine 4 gm/Pkt UD PO SCH ×3 (05:35→21:49)
[2017-03-21] MEDS: Insulin Regular 100 units/ml SC SCH ×4 (06:30→21:00)
[2017-03-21] MEDS: Multivitamin With Minerals Tab PO SCH (08:23)
[2017-03-21] MEDS: Fluticasone-Salmeterol 250-50mcg Diskus INH SCH ×2 (08:24→20:24)
--- NOTE | 2017-03-21 13:27 | CP.PCM.PN ---
Subjective - Date & Time of Evaluation Date of Evaluation: 03/21/17 Time of Evaluation: 13:24 - Subjective Subjective: 51 y/o male with pmhx of ESRD MWF; HTN; DM II; Cardiomyopathy; CAD; PAD; Liver cirrhosis; CHF; Asthma; Left eye blindness; Anemia;Arthritis; Gastritis; depression, seen at bedside after request of podiatry consultation. Patient denies any pain, numbness burning or tingling in his feet. Patient denies any pedal complaints at this time. Patient is resting in bed in NAD and AAOx3. Objective - Vital Signs/Intake and Output Vital Signs (last 24 hours): Temp Pulse Resp BP Pulse Ox 98.7 F 81 19 144/90 98 03/21/17 08:28 03/21/17 08:28 03/21/17 08:28 03/21/17 13:20 03/21/17 08:28 - Medications Medications: Current Medications Acetaminophen (Tylenol 325mg Tab) 650 mg PO Q6 PRN PRN Reason: pain 1-10 Aspirin (Ecotrin) 81 mg PO DAILY [facility] Last Admin: 03/21/17 08:23 Dose: 81 mg Atorvastatin Calcium (Lipitor) 20 mg PO HS [facility] Last Admin: 03/20/17 21:50 Dose: 20 mg Calcitriol (Rocaltrol) 0.25 mcg PO DAILY [facility] Last Admin: 03/21/17 08:23 Dose: 0.25 mcg Calcium Acetate (Phoslo) 667 mg PO TID [facility] Last Admin: 03/21/17 13:20 Dose: 667 mg Cholestyramine Resin (Questran) 4 gm PO Q8 [facility] Last Admin: 03/21/17 13:21 Dose: 4 gm Clopidogrel Bisulfate (Plavix) 75 mg PO DAILY [facility] Last Admin: 03/21/17 08:23 Dose: 75 mg Epoetin Brian (Procrit) 4,000 unit IV MWF [facility] Last Admin: 03/19/17 18:30 Dose: 4,000 unit Ergocalciferol (Drisdol 50,000 Intl Units Cap) 1 cap PO QWK [facility] Last Admin: 03/18/17 09:05 Dose: 1 cap Famotidine (Pepcid) 20 mg PO 2100 [facility] Last Admin: 03/20/17 21:50 Dose: 20 mg Gabapentin (Neurontin) 300 mg PO DAILY [facility] Last Admin: 03/21/17 08:23 Dose: 300 mg Heparin Sodium (Porcine) (Heparin) 5,000 units SC Q8 [facility] PRN Reason: Protocol Last Admin: 03/21/17 13:21 Dose: 5,000 units Hydralazine HCl (Apresoline) 25 mg PO Q8 [facility] Last Admin: 03/21/17 13:20 Dose: 25 mg Insulin Human Regular (Humulin R) 0 units SC ACHS [facility] PRN Reason: Protocol Last Admin: 03/21/17 11:37 Dose: Not Given Isosorbide Mononitrate (Imdur) 60 mg PO DAILY [facility] Last Admin: 03/21/17 08:23 Dose: 60 mg Lactulose (Enulose) 20 gm PO Q8 [facility] Last Admin: 03/21/17 13:21 Dose: 20 gm Multivitamins/Minerals (Therapeutic-M Tab) 1 tab PO DAILY [facility] Last Admin: 03/21/17 08:23 Dose: 1 tab Rifaximin (Xifaxan) 550 mg PO BID [facility] PRN Reason: Protocol Last Admin: 03/21/17 08:24 Dose: 550 mg Fluticasone/Salmeterol (Advair Diskus 250/50) 1 puff INH Q12 [facility] Last Admin: 03/21/17 08:24 Dose: 1 puff - Labs Labs: 03/20/17 12:30 03/20/17 13:10 PT 17.3 Seconds (9.8-13.1) H 03/18/17 05:20 INR 1.5 (0.9-1.2) H 03/18/17 05:20 APTT 39.1 Seconds (25.6-37.1) H 03/18/17 05:20 - Constitutional Appears: Well, Non-toxic, No Acute Distress - Extremities Exam Additional comments: Vasc: palpable DP/PT pulses b/l, TG wnl, CFT < 3 sec to all digits neuro: grossly intact derm: no edema, no erythema, nails are elongated and thickened x 10, no open lesions, no ascending cellulitis, no acute clinical signs of infection ortho: no pain on palpation to elongated toenails, no pain on ROM of ankle, STJ , 1st ray b/l - Neurological Exam Neurological Exam: Alert, Awake, Oriented x3 - Psychiatric Exam Psychiatric exam: Normal Affect, Normal Mood Assessment and Plan - Assessment and Plan (Free Text) Assessment: 51 y/o male with pmhx of ESRD MWF; HTN; DM II; Cardiomyopathy; CAD; PAD; Liver cirrhosis; CHF; Asthma; Left eye blindness; Anemia;Arthritis; Gastritis; depression seen at bedside for painful, elongated toenails Plan: patient evaluated and chart reviewed discussed in detail with attending Dr. Blake labs and vitals reviewed aseptic trimming of nails down to hygienic length x 10 using sterile nippers patient tolerated procedure well with no complications thank you for the consultation. please reconsult as necessary
--- NOTE | 2017-03-21 16:41 | CARD ---
APPROVED REPORT EKG Measurement Heart [id number] <Conclusion> Normal sinus rhythm Possible Left atrial enlargement Rightward axis Nonspecific T wave abnormality Prolonged QT Abnormal ECG
[2017-03-22] MEDS: Cholestyramine 4 gm/Pkt UD PO SCH ×3 (06:02→21:03)
[2017-03-22] MEDS: Insulin Regular 100 units/ml SC SCH ×4 (07:00→21:13)
[2017-03-22] MEDS: Fluticasone-Salmeterol 250-50mcg Diskus INH SCH ×2 (08:21→20:49)
[2017-03-22] MEDS: Multivitamin With Minerals Tab PO SCH (08:22)
--- NOTE | 2017-03-22 11:02 | CP.PCM.PN ---
Subjective - Date & Time of Evaluation Date of Evaluation: 03/22/17 Time of Evaluation: 11:00 - Subjective Subjective: Patient receiving physiotherapy at the acute rehabilitation unit Patient is awake and conscious Appetite reported to be okay Objective - Vital Signs/Intake and Output Vital Signs (last 24 hours): Temp Pulse Resp BP Pulse Ox 98.0 F 88 19 139/75 96 03/22/17 09:13 03/22/17 09:13 03/22/17 09:13 03/22/17 09:13 03/22/17 09:13 - Medications Medications: Current Medications Acetaminophen (Tylenol 325mg Tab) 650 mg PO Q6 PRN PRN Reason: pain 1-10 Aspirin (Ecotrin) 81 mg PO DAILY [facility] Last Admin: 03/22/17 08:23 Dose: 81 mg Atorvastatin Calcium (Lipitor) 20 mg PO HS [facility] Last Admin: 03/21/17 21:50 Dose: 20 mg Calcitriol (Rocaltrol) 0.25 mcg PO DAILY [facility] Last Admin: 03/22/17 08:23 Dose: 0.25 mcg Calcium Acetate (Phoslo) 667 mg PO TID [facility] Last Admin: 03/22/17 08:23 Dose: 667 mg Cholestyramine Resin (Questran) 4 gm PO Q8 [facility] Last Admin: 03/22/17 06:02 Dose: 4 gm Clopidogrel Bisulfate (Plavix) 75 mg PO DAILY [facility] Last Admin: 03/22/17 08:23 Dose: 75 mg Epoetin Brian (Procrit) 4,000 unit IV MWF [facility] Last Admin: 03/19/17 18:30 Dose: 4,000 unit Ergocalciferol (Drisdol 50,000 Intl Units Cap) 1 cap PO QWK [facility] Last Admin: 03/18/17 09:05 Dose: 1 cap Famotidine (Pepcid) 20 mg PO 2100 [facility] Last Admin: 03/21/17 20:24 Dose: 20 mg Gabapentin (Neurontin) 300 mg PO DAILY [facility] Last Admin: 03/22/17 08:24 Dose: 300 mg Heparin Sodium (Porcine) (Heparin) 5,000 units SC Q8 [facility] PRN Reason: Protocol Last Admin: 03/22/17 06:01 Dose: 5,000 units Hydralazine HCl (Apresoline) 25 mg PO Q8 [facility] Last Admin: 03/22/17 06:01 Dose: 25 mg Insulin Human Regular (Humulin R) 0 units SC ACHS [facility] PRN Reason: Protocol Last Admin: 03/22/17 07:00 Dose: 1 unit Isosorbide Mononitrate (Imdur) 60 mg PO DAILY [facility] Last Admin: 03/22/17 08:23 Dose: 60 mg Lactulose (Enulose) 20 gm PO Q8 [facility] Last Admin: 03/22/17 06:01 Dose: 20 gm Multivitamins/Minerals (Therapeutic-M Tab) 1 tab PO DAILY [facility] Last Admin: 03/22/17 08:22 Dose: 1 tab Rifaximin (Xifaxan) 550 mg PO BID [facility] PRN Reason: Protocol Last Admin: 03/22/17 08:23 Dose: 550 mg Fluticasone/Salmeterol (Advair Diskus 250/50) 1 puff INH Q12 [facility] Last Admin: 03/22/17 08:21 Dose: 1 puff - Labs Labs: 03/20/17 12:30 03/20/17 13:10 PT 17.3 Seconds (9.8-13.1) H 03/18/17 05:20 INR 1.5 (0.9-1.2) H 03/18/17 05:20 APTT 39.1 Seconds (25.6-37.1) H 03/18/17 05:20 - Constitutional Appears: No Acute Distress - ENT Exam ENT Exam: Mucous Membranes Moist - Respiratory Exam Respiratory Exam: NORMAL BREATHING PATTERN. absent: Chest Wall Tenderness - Cardiovascular Exam Cardiovascular Exam: absent: JVD, Rubs - GI/Abdominal Exam GI & Abdominal Exam: Normal Bowel Sounds - Back Exam Back Exam: absent: CVA tenderness (L) - Neurological Exam Neurological Exam: Alert - Psychiatric Exam Psychiatric exam: Normal Affect - Skin Skin Exam: absent: Cyanosis Assessment and Plan (1) CKD (chronic kidney disease) requiring chronic dialysis Assessment & Plan: Patient with end stage renal disease on maintenance hemodialysis admitted because of the CVA Patient receiving dialysis Wednesday Patient scheduled for hemodialysis after completing his cessation of physiotherapy Spoke to the dialysis nurse and went over with the order Patient making some progress on the therapy Patient has multitude of other medical problem as noted ESRD MWF; HTN; DM II; Cardiomyopathy; CAD; PAD; Liver cirrhosis; CHF; Asthma; Left eye blindness; Anemia;Arthritis; Gastritis; depression Continue monitoring Status: Acute (2) CVA (cerebral vascular accident) Status: Acute
[2017-03-22] MEDS: Epoetin Alfa 4000 UNIT/ML Inj IV SCH (17:08)
--- NOTE | 2017-03-22 17:34 | CP.PCM.PN ---
Subjective - Date & Time of Evaluation Date of Evaluation: 03/22/17 Time of Evaluation: 17:30 - Subjective Subjective: Patient seen and examined bedside. At present receiving HD. Denies any pain , SOB or discomfort. Hemodynamically stable, afebrile.No acute issues overnight. Participating with PT . Still with slurred speech, left facial droop and left side weakness Objective - Vital Signs/Intake and Output Vital Signs (last 24 hours): Temp Pulse Resp BP Pulse Ox 98.0 F 81 19 128/86 96 03/22/17 09:13 03/22/17 13:27 03/22/17 09:13 03/22/17 13:15 03/22/17 09:13 - Medications Medications: Current Medications Acetaminophen (Tylenol 325mg Tab) 650 mg PO Q6 PRN PRN Reason: pain 1-10 Aspirin (Ecotrin) 81 mg PO DAILY [facility] Last Admin: 03/22/17 08:23 Dose: 81 mg Atorvastatin Calcium (Lipitor) 20 mg PO HS [facility] Last Admin: 03/21/17 21:50 Dose: 20 mg Calcitriol (Rocaltrol) 0.25 mcg PO DAILY [facility] Last Admin: 03/22/17 08:23 Dose: 0.25 mcg Calcium Acetate (Phoslo) 667 mg PO TID [facility] Last Admin: 03/22/17 13:16 Dose: 667 mg Cholestyramine Resin (Questran) 4 gm PO Q8 [facility] Last Admin: 03/22/17 13:15 Dose: 4 gm Clopidogrel Bisulfate (Plavix) 75 mg PO DAILY [facility] Last Admin: 03/22/17 08:23 Dose: 75 mg Epoetin Brian (Procrit) 4,000 unit IV MWF [facility] Last Admin: 03/22/17 17:08 Dose: 4,000 unit Ergocalciferol (Drisdol 50,000 Intl Units Cap) 1 cap PO QWK [facility] Last Admin: 03/18/17 09:05 Dose: 1 cap Famotidine (Pepcid) 20 mg PO 2100 [facility] Last Admin: 03/21/17 20:24 Dose: 20 mg Gabapentin (Neurontin) 300 mg PO DAILY [facility] Last Admin: 03/22/17 08:24 Dose: 300 mg Heparin Sodium (Porcine) (Heparin) 5,000 units SC Q8 [facility] PRN Reason: Protocol Last Admin: 03/22/17 13:15 Dose: 5,000 units Hydralazine HCl (Apresoline) 25 mg PO Q8 [facility] Last Admin: 03/22/17 13:15 Dose: 25 mg Insulin Human Regular (Humulin R) 0 units SC ACHS [facility] PRN Reason: Protocol Last Admin: 03/22/17 11:40 Dose: Not Given Isosorbide Mononitrate (Imdur) 60 mg PO DAILY [facility] Last Admin: 03/22/17 08:23 Dose: 60 mg Lactulose (Enulose) 20 gm PO Q8 [facility] Last Admin: 03/22/17 13:16 Dose: 20 gm Multivitamins/Minerals (Therapeutic-M Tab) 1 tab PO DAILY [facility] Last Admin: 03/22/17 08:22 Dose: 1 tab Rifaximin (Xifaxan) 550 mg PO BID [facility] PRN Reason: Protocol Last Admin: 03/22/17 08:23 Dose: 550 mg Fluticasone/Salmeterol (Advair Diskus 250/50) 1 puff INH Q12 [facility] Last Admin: 03/22/17 08:21 Dose: 1 puff - Labs Labs: 03/20/17 12:30 03/20/17 13:10 PT 17.3 Seconds (9.8-13.1) H 03/18/17 05:20 INR 1.5 (0.9-1.2) H 03/18/17 05:20 APTT 39.1 Seconds (25.6-37.1) H 03/18/17 05:20 - Constitutional Appears: Non-toxic, Older Than Stated Age, Chronically Ill - Head Exam Head Exam: ATRAUMATIC, NORMOCEPHALIC - Eye Exam Eye Exam: EOMI, Normal appearance, PERRL Pupil Exam: NORMAL ACCOMODATION - ENT Exam ENT Exam: Mucous Membranes Moist, Normal Exam - Neck Exam Neck Exam: Full ROM, Normal Inspection - Respiratory Exam Respiratory Exam: Clear to Ausculation Bilateral, NORMAL BREATHING PATTERN. absent: Rales, Rhonchi, Wheezes, Respiratory Distress - Cardiovascular Exam Cardiovascular Exam: REGULAR RHYTHM, RRR, +S1, +S2. absent: JVD - GI/Abdominal Exam GI & Abdominal Exam: Soft, Normal Bowel Sounds. absent: Distended, Guarding, Tenderness, Rebound - Rectal Exam Rectal Exam: Deferred - Extremities Exam Extremities Exam: Full ROM, Normal Capillary Refill, Normal Inspection. absent : Pedal Edema - Back Exam Back Exam: NORMAL INSPECTION - Neurological Exam Neurological Exam: Alert, Awake Additional comments: left facial droop left side weakness LUE 3/5 LLE 4/5 - Psychiatric Exam Psychiatric exam: Flat Affect - Skin Skin Exam: Dry, Normal Color, Warm Assessment and Plan - Assessment and Plan (Free Text) Assessment: 51 years old male with hx of DM II, HTN, Cirrhosis and ESRD on Hemo-dialysis MWF was diagnosed with acute CVA 03/12/17 with left hemiparesis and slurred speech . He was transferred from the [facility] to the rehab Unit at [facility] for rehabilitation and continued management. 1. Acute CVA with left facvila dropp , sl;urred speech and left side weakness Consult with Dr Murillo Cleat Blanker appreciated Continue OT/PT Speech therapy continue aspirin and Plavix, and Lipitor 2. ESRD on HD MWF Consult Dr [facility] for Dialysis appreciated Continue PhosLo, calcitriol, Procrit 3. DM II controlled Regular Insulin sliding scale according to Accucheck 4. CHF on Lasix Isosorbide Mononitrate 5. Cirrhosis continue Rifaximin,Lactulose, cholestyramine 6. COPD Continue Advair 7. Anemia of chronic kidney disease - follow Hb 8. DVT prophylaxis Heparin
--- NOTE | 2017-03-22 22:11 | PN ---
NEUROLOGY PROGRESS NOTE DATE: SUBJECTIVE: The patient is lying on the bed, in no acute distress. Denies having any headache or dizziness. PHYSICAL EXAMINATION: VITAL SIGNS: His blood pressure is 128/86, heart rate is 81 per minute, breathing at the rate of 16 per minute, temperature is 98 degrees Fahrenheit. HEENT: Head is normocephalic, atraumatic. NECK: Supple. There are no carotid bruits. LUNGS: Clear. CARDIOVASCULAR SYSTEM: S1 and S2 are audible. No murmurs. ABDOMEN: Soft, nontender. Bowel sounds are present. NEUROLOGY: Mental status: The patient is awake, alert, oriented to time, place and person. His speech is fluent. Naming and repetition are normal. Memory and cognition are intact. Cranial nerve examination: Pupils 2 mm, minimally reactive to light. Extraocular movements are intact. There is decreased nasolabial fold on the left side. Palate is upgoing bilaterally and tongue is midline. Motor examination: Tone is normal. There is left-sided hemiparesis with power in the left upper extremity about +3/5, power in left lower extremity about 3 to 4/5. Plantars downgoing on the right side and the left toe is amputated. IMPRESSION: 1. Cerebrovascular accident with right basal ganglionic infarct with left hemiparesis. 2. End-stage renal disease, on hemodialysis. RECOMMENDATION: 1. The patient's left-sided weakness continues to improve. 2. The patient to be continued on aspirin and Plavix. 3. The patient also will be continued on statin. 4. The patient to have physical therapy. 5. Please continue supportive care and other treatment. Thank you for the opportunity to participate in the care of this patient. Tom Eller MD
[2017-03-23] MEDS: Cholestyramine 4 gm/Pkt UD PO SCH ×3 (06:21→21:11)
[2017-03-23] MEDS: Insulin Regular 100 units/ml SC SCH ×4 (06:42→21:13)
[2017-03-23] MEDS: Fluticasone-Salmeterol 250-50mcg Diskus INH SCH ×2 (08:03→21:11)
[2017-03-23] MEDS: Multivitamin With Minerals Tab PO SCH (08:05)
--- NOTE | 2017-03-23 11:32 | CP.PCM.PN ---
Subjective - Date & Time of Evaluation Date of Evaluation: 03/23/17 Time of Evaluation: 11:30 - Subjective Subjective: Patient seen at the rehabilitation receiving physiotherapy sitting up in the chair Appetite adequate Objective - Vital Signs/Intake and Output Vital Signs (last 24 hours): Temp Pulse Resp BP Pulse Ox 98.4 F 82 19 118/78 97 03/23/17 09:00 03/23/17 09:00 03/23/17 09:00 03/23/17 09:00 03/23/17 08:35 - Medications Medications: Current Medications Acetaminophen (Tylenol 325mg Tab) 650 mg PO Q6 PRN PRN Reason: pain 1-10 Aspirin (Ecotrin) 81 mg PO DAILY [facility] Last Admin: 03/23/17 08:05 Dose: 81 mg Atorvastatin Calcium (Lipitor) 20 mg PO HS [facility] Last Admin: 03/22/17 21:03 Dose: 20 mg Calcitriol (Rocaltrol) 0.25 mcg PO DAILY [facility] Last Admin: 03/23/17 08:06 Dose: 0.25 mcg Calcium Acetate (Phoslo) 667 mg PO TID [facility] Last Admin: 03/23/17 08:04 Dose: 667 mg Cholestyramine Resin (Questran) 4 gm PO Q8 [facility] Last Admin: 03/23/17 06:21 Dose: 4 gm Clopidogrel Bisulfate (Plavix) 75 mg PO DAILY [facility] Last Admin: 03/23/17 08:05 Dose: 75 mg Epoetin Brian (Procrit) 4,000 unit IV MWF [facility] Last Admin: 03/22/17 17:08 Dose: 4,000 unit Ergocalciferol (Drisdol 50,000 Intl Units Cap) 1 cap PO QWK [facility] Last Admin: 03/18/17 09:05 Dose: 1 cap Famotidine (Pepcid) 20 mg PO 2100 [facility] Last Admin: 03/22/17 20:49 Dose: 20 mg Gabapentin (Neurontin) 300 mg PO DAILY [facility] Last Admin: 03/23/17 08:05 Dose: 300 mg Heparin Sodium (Porcine) (Heparin) 5,000 units SC Q8 [facility] PRN Reason: Protocol Last Admin: 03/23/17 06:20 Dose: 5,000 units Hydralazine HCl (Apresoline) 25 mg PO Q8 [facility] Last Admin: 03/23/17 06:20 Dose: 25 mg Insulin Human Regular (Humulin R) 0 units SC ACHS [facility] PRN Reason: Protocol Last Admin: 03/23/17 06:42 Dose: Not Given Isosorbide Mononitrate (Imdur) 60 mg PO DAILY [facility] Last Admin: 03/23/17 08:04 Dose: 60 mg Lactulose (Enulose) 20 gm PO Q8 [facility] Last Admin: 03/23/17 06:20 Dose: 20 gm Multivitamins/Minerals (Therapeutic-M Tab) 1 tab PO DAILY [facility] Last Admin: 03/23/17 08:05 Dose: 1 tab Rifaximin (Xifaxan) 550 mg PO BID [facility] PRN Reason: Protocol Last Admin: 03/23/17 08:04 Dose: 550 mg Fluticasone/Salmeterol (Advair Diskus 250/50) 1 puff INH Q12 [facility] Last Admin: 03/23/17 08:03 Dose: 1 puff - Labs Labs: 03/20/17 12:30 03/20/17 13:10 PT 17.3 Seconds (9.8-13.1) H 03/18/17 05:20 INR 1.5 (0.9-1.2) H 03/18/17 05:20 APTT 39.1 Seconds (25.6-37.1) H 03/18/17 05:20 - Constitutional Appears: No Acute Distress - Respiratory Exam Respiratory Exam: NORMAL BREATHING PATTERN. absent: Chest Wall Tenderness - Cardiovascular Exam Cardiovascular Exam: absent: JVD, Rubs - GI/Abdominal Exam GI & Abdominal Exam: Soft, Normal Bowel Sounds - Extremities Exam Extremities Exam: absent: Calf Tenderness - Back Exam Back Exam: absent: CVA tenderness (L), CVA tenderness (R) - Neurological Exam Neurological Exam: Alert Assessment and Plan (1) CKD (chronic kidney disease) requiring chronic dialysis Assessment & Plan: End stage renal disease is receiving dialysis MWF. Hypertension and the rest of the medical problem as noted did not previous note Status: Acute (2) CVA (cerebral vascular accident) Status: Acute
--- NOTE | 2017-03-23 16:12 | PSY.TMCNF ---
Nursing - Vital Signs Vital Signs (Last 8 hours): Vital Signs 03/23/17 03/23/17 03/23/17 08:35 09:00 13:48 Temperature 98.4 F 98.4 F Pulse Rate 82 82 Respiratory 19 19 Rate Blood Pressure 118/78 118/78 132/71 O2 Sat by Pulse 97 Oximetry Pain: 0 - Precautions: Precautions: Fall Prevention, Aspiration, Cardiac/Pulmonary - Medications/Other Issues Comment: Pt at moderate nutritional risk. goals: 1. Pt to consume 75-100% of meals. 2. Blood glucoses to be between 70-180 mg/dl. 3. K+ WNL. Follow-up due on 03/25/2017 - Consults Comment: Dr. Murillo, Dr. Mancia - Toileting Toileting: Dependent - Bladder Management Frequency of Accidents: On HD, pt is anuric. - Bowel Management Bowel Pattern: Incontinent Bowel Management: Dependent Frequency of Accidents: >5 - Transfers Transfers: Maximal Assistance - ADL's ADL's: Maximal Assistance - Patient/Family Teaching Comments: Care post CVA and safety precautions - Goals/Time Frame Comments: Per multidisciplinary care plan and goals - Provider Provider: Carla GUEVARAN RN CRRN Physical Therapy - Bed Mobility Bed Mobility: Verbal Cues, Moderate Assistance - Transfers Sit to Stand: Moderate Assistance - Ambulation Level of Assistance: Verbal Cues, Minimal Assistance, Moderate Assistance Distance (ft.): 60 Assistive Devices: Rolling Walker - Stair Negotiation Stairs: Level of Assistance: Verbal Cues, Moderate Assistance, Maximum Assistance Number of Stairs: 3 Stairs: Assistive Devices: Left Handrail, Right Handrail - Standing Balance Static Stand: Moderate Assistance Dynamic Stand: Unable to assess/perform - Pain Management Techniques: Heat - Insight/Carryover Insight/Carryover: Fair - Patient/Family Education Comment: Pt education provided for increased safety awareness and proper techniques during functional mobility skills - Assessment/Plan Assessment: Rory Blanco presents with 1.) mild-moderate dysarthria characterized by L facial droop resulting in impaired articulatory precision, respiration for phonation, and hoarse vocal quality all resulting in impaired intelligibility and 2.) mild cognitive deficits characterized by impaired short- term recall and problem solving/reasoning; and 3) mild-moderate oral dysphagia and suspected mild pharyngeal dysphagia characterized by prolonged bolus manipulation/transit secondary to L facial droop with moderately prolonged mastication time for bite-sized solids, suspected mild premature spillage/ impaired bolus control with thins intermittently, and mild stasis with bite- sized solids (though pt independently utilized lingual sweep), and mildly delayed swallow initiation intermittently; no overt s/s aspiration on PO trials tested, however, pt is at risk for aspiration secondary to oral deficits and delayed swallow initiation. Recommend finely chopped solids and thin liquids via small, single cup sips only; aspiration precautions; supervision with meals to enforce pt compliance with safe swallow strategies. Pt would benefit from dysphagia tx with NMES for improved swallow function. [ End ] - Goals Timeframe: 1 week Goals: Sit < > supine with supervision. Sit < > stand with supervision. Bed < > chair transfers with supervision. Pt will ambulate 150 ft with RW and supervision - Provider Therapist: Mel License Number: [id number] Occupational Therapy - Arousal/Attention/Orientation Level of Consciousness: Awake, Alert Patient Orientation: Person, Place - ADL/IADL Self Feeding: Set-up Help Grooming: Verbal Cues, Minimal Assistance Bathing-Upper Extremity: Verbal Cues, Moderate Assistance Bathing-Lower Extremity: Maximum Assistance Dressing-Upper Extremity: Maximum Assistance Dressing-Lower Extremity: Maximum Assistance - Sitting Balance Static Sitting: Supervision Dynamic Sitting: Contact Guard Assist - Transfers Wheelchair to Bed Transfers: Moderate Assistance Toilet Transfers: Moderate Assistance Tub Transfers: Maximum Assistance - Wheelchair Management Level of Assistance: Maximum Assistance - Upper Extremity Status Right Upper Extremity Comment: WFL Left Upper Extremity Comment: Decreased strength, coordination. 3/5 - Pain Alleviating Techniques: Heat - Insight/Carryover Insight/Carryover: Fair - Patient/Family Education Comment: Pt education provided for increased safety awareness and proper techniques during functional mobility skills - Assessment/Plan Assessment: Rory Blanco presents with 1.) mild-moderate dysarthria characterized by L facial droop resulting in impaired articulatory precision, respiration for phonation, and hoarse vocal quality all resulting in impaired intelligibility and 2.) mild cognitive deficits characterized by impaired short- term recall and problem solving/reasoning; and 3) mild-moderate oral dysphagia and suspected mild pharyngeal dysphagia characterized by prolonged bolus manipulation/transit secondary to L facial droop with moderately prolonged mastication time for bite-sized solids, suspected mild premature spillage/ impaired bolus control with thins intermittently, and mild stasis with bite- sized solids (though pt independently utilized lingual sweep), and mildly delayed swallow initiation intermittently; no overt s/s aspiration on PO trials tested, however, pt is at risk for aspiration secondary to oral deficits and delayed swallow initiation. Recommend finely chopped solids and thin liquids via small, single cup sips only; aspiration precautions; supervision with meals to enforce pt compliance with safe swallow strategies. Pt would benefit from dysphagia tx with NMES for improved swallow function. [ End ] - Goals Timeframe: 1 week Goals: Sit < > supine with supervision. Sit < > stand with supervision. Bed < > chair transfers with supervision. Pt will ambulate 150 ft with RW and supervision - Provider Therapist: Nina WARNER License Number: [id number] Speech Therapy - Consult Information Patient on Program: Yes Medical Diagnosis: CVA Treatment Diagnosis: mild-moderate dysarthria. mild-moderate cognitive- linguistic deficits. mild-moderate suspected oropharyngeal dysphagia - Assessment Problem Solving Impairment: Mild Memory Impairment: Mild Speech/Articulation Impairment: Moderate Dysphagia/Swallowing Impairment: Moderate - Plan Assessment: Rory Blanco presents with 1.) mild-moderate dysarthria characterized by L facial droop resulting in impaired articulatory precision, respiration for phonation, and hoarse vocal quality all resulting in impaired intelligibility and 2.) mild cognitive deficits characterized by impaired short- term recall and problem solving/reasoning; and 3) mild-moderate oral dysphagia and suspected mild pharyngeal dysphagia characterized by prolonged bolus manipulation/transit secondary to L facial droop with moderately prolonged mastication time for bite-sized solids, suspected mild premature spillage/ impaired bolus control with thins intermittently, and mild stasis with bite- sized solids (though pt independently utilized lingual sweep), and mildly delayed swallow initiation intermittently; no overt s/s aspiration on PO trials tested, however, pt is at risk for aspiration secondary to oral deficits and delayed swallow initiation. Recommend finely chopped solids and thin liquids via small, single cup sips only; aspiration precautions; supervision with meals to enforce pt compliance with safe swallow strategies. Pt would benefit from dysphagia tx with NMES for improved swallow function. [ End ] Plan: Continue Dysphagia Therapy, Continue Speech/Language Therapy Frequency: 3-5 times per week Duration: 1 week Goals/Timeframe: As per progress note dated 03/23/17 Recommendations: 1)Continue speech and dysphagia tx 3-5x/week. 2)Initiate NMES - Provider Therapist: Liza Moreira License Number: [id number] Recreational Therapy - Participation Participation: Participates in Individual and/or Group Sessions, Monitors His/ Her Own Leisure Time - Attendance Attendance: Daily - Socialization Level of Socialization: Initiates/interacts freely with care givers and peer - Diversional Time Diversional Time: listening to music - Assessment Assessment/Plan: Rory Blanco presents with 1.) mild-moderate dysarthria characterized by L facial droop resulting in impaired articulatory precision, respiration for phonation, and hoarse vocal quality all resulting in impaired intelligibility and 2.) mild cognitive deficits characterized by impaired short- term recall and problem solving/reasoning; and 3) mild-moderate oral dysphagia and suspected mild pharyngeal dysphagia characterized by prolonged bolus manipulation/transit secondary to L facial droop with moderately prolonged mastication time for bite-sized solids, suspected mild premature spillage/ impaired bolus control with thins intermittently, and mild stasis with bite- sized solids (though pt independently utilized lingual sweep), and mildly delayed swallow initiation intermittently; no overt s/s aspiration on PO trials tested, however, pt is at risk for aspiration secondary to oral deficits and delayed swallow initiation. Recommend finely chopped solids and thin liquids via small, single cup sips only; aspiration precautions; supervision with meals to enforce pt compliance with safe swallow strategies. Pt would benefit from dysphagia tx with NMES for improved swallow function. [ End ] - Provider Therapist: Ashley Jin, [employer] #[id number] Nutrition - Current Diet Current Diet/ Supplement/ Feedings: Heart healthy moderate consistent CHO renal dialysis mech altered. (finely chopped) thin liquids - Appetite Percent Meal Consumed: 50-74% - Comments Comments: Care post CVA and safety precautions - Assessment/Goals/Time Frame Assessment/Goals/Time Frame: Pt at moderate nutritional risk. goals: 1. Pt to consume 75-100% of meals. 2. Blood glucoses to be between 70-180 mg/dl. 3. K + WNL. Follow-up due on 03/25/2017 - Provider Provider: Dari Burnett RD Case Management - Discharge Plan Discharge Plan: Home with significant other/family Rehabilitation Plan - Treatment Plan Treatment Plan: Physical Therapy, Occupational Therapy, Speech, Dietary - Discharge Plan Estimated Date of Discharge: 04/13/17 Discharge to: Home
--- NOTE | 2017-03-23 16:46 | CP.PCM.PN ---
Subjective - Date & Time of Evaluation Date of Evaluation: 03/23/17 Time of Evaluation: 16:45 - Subjective Subjective: Patient seen in room flat affect icteric sclera denies pain at this time making gains in therapies continue with current care Objective - Vital Signs/Intake and Output Vital Signs (last 24 hours): Temp Pulse Resp BP Pulse Ox 98.4 F 82 19 132/71 97 03/23/17 09:00 03/23/17 09:00 03/23/17 09:00 03/23/17 13:48 03/23/17 08:35 - Medications Medications: Current Medications Acetaminophen (Tylenol 325mg Tab) 650 mg PO Q6 PRN PRN Reason: pain 1-10 Aspirin (Ecotrin) 81 mg PO DAILY [facility] Last Admin: 03/23/17 08:05 Dose: 81 mg Atorvastatin Calcium (Lipitor) 20 mg PO HS [facility] Last Admin: 03/22/17 21:03 Dose: 20 mg Calcitriol (Rocaltrol) 0.25 mcg PO DAILY [facility] Last Admin: 03/23/17 08:06 Dose: 0.25 mcg Calcium Acetate (Phoslo) 667 mg PO TID [facility] Last Admin: 03/23/17 12:26 Dose: 667 mg Cholestyramine Resin (Questran) 4 gm PO Q8 [facility] Last Admin: 03/23/17 13:47 Dose: 4 gm Clopidogrel Bisulfate (Plavix) 75 mg PO DAILY [facility] Last Admin: 03/23/17 08:05 Dose: 75 mg Epoetin Brian (Procrit) 4,000 unit IV MWF [facility] Last Admin: 03/22/17 17:08 Dose: 4,000 unit Ergocalciferol (Drisdol 50,000 Intl Units Cap) 1 cap PO QWK [facility] Last Admin: 03/18/17 09:05 Dose: 1 cap Famotidine (Pepcid) 20 mg PO 2100 [facility] Last Admin: 03/22/17 20:49 Dose: 20 mg Gabapentin (Neurontin) 300 mg PO DAILY [facility] Last Admin: 03/23/17 08:05 Dose: 300 mg Heparin Sodium (Porcine) (Heparin) 5,000 units SC Q8 [facility] PRN Reason: Protocol Last Admin: 03/23/17 13:47 Dose: 5,000 units Hydralazine HCl (Apresoline) 25 mg PO Q8 [facility] Last Admin: 03/23/17 13:48 Dose: 25 mg Insulin Human Regular (Humulin R) 0 units SC ACHS [facility] PRN Reason: Protocol Last Admin: 03/23/17 12:26 Dose: 1 unit Isosorbide Mononitrate (Imdur) 60 mg PO DAILY [facility] Last Admin: 03/23/17 08:04 Dose: 60 mg Lactic Acid (Lac-Hydrin 12% Lotion (225 G)) 1 applic TOP Q12 [facility] Lactulose (Enulose) 20 gm PO DAILY [facility] Multivitamins/Minerals (Therapeutic-M Tab) 1 tab PO DAILY [facility] Last Admin: 03/23/17 08:05 Dose: 1 tab Rifaximin (Xifaxan) 550 mg PO BID [facility] PRN Reason: Protocol Last Admin: 03/23/17 08:04 Dose: 550 mg Fluticasone/Salmeterol (Advair Diskus 250/50) 1 puff INH Q12 [facility] Last Admin: 03/23/17 08:03 Dose: 1 puff - Labs Labs: 03/20/17 12:30 03/20/17 13:10 PT 17.3 Seconds (9.8-13.1) H 03/18/17 05:20 INR 1.5 (0.9-1.2) H 03/18/17 05:20 APTT 39.1 Seconds (25.6-37.1) H 03/18/17 05:20
[2017-03-24] MEDS: Cholestyramine 4 gm/Pkt UD PO SCH ×2 (05:43→13:24)
[2017-03-24] MEDS: Insulin Regular 100 units/ml SC SCH ×3 (06:36→17:10)
[2017-03-24] MEDS: Fluticasone-Salmeterol 250-50mcg Diskus INH SCH (08:21)
[2017-03-24] MEDS: Multivitamin With Minerals Tab PO SCH (08:22)
--- NOTE | 2017-03-24 09:51 | CP.PCM.PN ---
Subjective - Date & Time of Evaluation Date of Evaluation: 03/24/17 Time of Evaluation: 09:50 - Subjective Subjective: 51-year-old male seen and examined at bedside for acute CVA, ESRD, DM 2, CHF/ hypertension. Patient has no acute events overnight. Is participating well with physical therapy and in better spirits today. Denies any chest pain, shortness of breath, calf tenderness. Hemodynamically stable. Objective - Vital Signs/Intake and Output Vital Signs (last 24 hours): Temp Pulse Resp BP Pulse Ox 97.5 F L 81 19 153/92 H 98 03/24/17 08:35 03/24/17 08:35 03/24/17 08:35 03/24/17 08:35 03/24/17 08:35 Physical exam: Constitutional- cooperative, awake, alert. Head- NCAT, PERRL Eye- PERRL, normal accommodation ENT- normal exam, MMM. Neck- normal inspection, supple, no JVD Respiratory- CTAB, no wheezes rales rhonchi Cardiovascular- RRR, +S1, +S2 no MRG GI/Abdominal- normal bowel sounds, soft, no mass, no hsm Skin- warm, dry Extremities Exam- normal capillary refill, normal inspection Neurological Exam- alert, awake Psych- normal mood, normal affect - Medications Medications: Current Medications Acetaminophen (Tylenol 325mg Tab) 650 mg PO Q6 PRN PRN Reason: pain 1-10 Aspirin (Ecotrin) 81 mg PO DAILY [facility]S [facility] Last Admin: 03/24/17 08:23 Dose: 81 mg Atorvastatin Calcium (Lipitor) 20 mg PO HS [facility] 234 BEDS AT [facility] Last Admin: 03/23/17 21:10 Dose: 20 mg Calcitriol (Rocaltrol) 0.25 mcg PO DAILY [facility] 234 BEDS AT [facility] Last Admin: 03/24/17 08:22 Dose: 0.25 mcg Calcium Acetate (Phoslo) 667 mg PO TID [facility] 234 BEDS AT [facility] Last Admin: 03/24/17 08:23 Dose: 667 mg Cholestyramine Resin (Questran) 4 gm PO Q8 [facility] 234 BEDS AT [facility] Last Admin: 03/24/17 05:43 Dose: 4 gm Clopidogrel Bisulfate (Plavix) 75 mg PO DAILY [facility] 234 BEDS AT [facility] Last Admin: 03/24/17 08:23 Dose: 75 mg Epoetin Brian (Procrit) 4,000 unit IV MWF [facility] 234 BEDS AT [facility] Last Admin: 03/22/17 17:08 Dose: 4,000 unit Ergocalciferol (Drisdol 50,000 Intl Units Cap) 1 cap PO QWK [facility] 234 BEDS AT [facility] Last Admin: 03/18/17 09:05 Dose: 1 cap Famotidine (Pepcid) 20 mg PO 2100 [facility] 234 BEDS AT [facility] Last Admin: 03/23/17 21:10 Dose: 20 mg Gabapentin (Neurontin) 300 mg PO DAILY [facility] 234 BEDS AT [facility] Last Admin: 03/24/17 08:23 Dose: 300 mg Heparin Sodium (Porcine) (Heparin) 5,000 units SC Q8 [facility] 234 BEDS AT [facility] PRN Reason: Protocol Last Admin: 03/24/17 05:42 Dose: Not Given Hydralazine HCl (Apresoline) 25 mg PO Q8 [facility] 234 BEDS AT [facility] Last Admin: 03/24/17 05:41 Dose: 25 mg Insulin Human Regular (Humulin R) 0 units SC ACHS [facility] 234 BEDS AT [facility] PRN Reason: Protocol Last Admin: 03/24/17 06:36 Dose: Not Given Isosorbide Mononitrate (Imdur) 60 mg PO DAILY [facility] 234 BEDS AT [facility] Last Admin: 03/24/17 08:23 Dose: 60 mg Lactic Acid (Lac-Hydrin 12% Lotion (225 G)) 1 applic TOP Q12 [facility] 234 BEDS AT [facility] Last Admin: 03/24/17 08:22 Dose: 1 applic Lactulose (Enulose) 20 gm PO DAILY [facility] 234 BEDS AT [facility] Last Admin: 03/24/17 08:32 Dose: Not Given Multivitamins/Minerals (Therapeutic-M Tab) 1 tab PO DAILY [facility] 234 BEDS AT [facility] Last Admin: 03/24/17 08:22 Dose: 1 tab Rifaximin (Xifaxan) 550 mg PO BID [facility] 234 BEDS AT [facility] PRN Reason: Protocol Last Admin: 03/24/17 08:23 Dose: 550 mg Fluticasone/Salmeterol (Advair Diskus 250/50) 1 puff INH Q12 [facility] 234 BEDS AT [facility] Last Admin: 03/24/17 08:21 Dose: 1 puff - Labs Labs: 03/20/17 12:30 03/20/17 13:10 PT 17.3 Seconds (9.8-13.1) H 03/18/17 05:20 INR 1.5 (0.9-1.2) H 03/18/17 05:20 APTT 39.1 Seconds (25.6-37.1) H 03/18/17 05:20 Assessment and Plan - Assessment and Plan (Free Text) Plan: 51 years old male with hx of DM II, HTN, Cirrhosis and ESRD on Hemo-dialysis MWF was diagnosed with acute CVA 03/12/17 with left hemiparesis and slurred speech . He was transferred from the [facility] to the rehab Unit at [facility] for rehabilitation and continued management. 1. Acute CVA with left facial dropp , slurred speech and left side weakness Consult with Dr Murillo Assistant Oceanographer appreciated Continue OT/PT Speech therapy continue aspirin and Plavix, and Lipitor 2. ESRD on HD MWF Consult Dr Mancia Nephrology for Dialysis appreciated Continue PhosLo, calcitriol, Procrit 3. DM II controlled Regular Insulin sliding scale according to Accucheck 4. CHF on Lasix Isosorbide Mononitrate 5. Cirrhosis continue Rifaximin,Lactulose, cholestyramine 6. COPD Continue Advair 7. Anemia of chronic kidney disease - follow Hb 8. DVT prophylaxis Heparin
--- NOTE | 2017-03-24 11:36 | CP.PCM.PN ---
Subjective - Date & Time of Evaluation Date of Evaluation: 03/24/17 Time of Evaluation: 11:34 - Subjective Subjective: Patient was seen in the acute rehabilitation receiving physiotherapy Patient sitting up in a chair No chest pain no shortness of breath Objective - Vital Signs/Intake and Output Vital Signs (last 24 hours): Temp Pulse Resp BP Pulse Ox 97.5 F L 81 19 153/92 H 98 03/24/17 08:35 03/24/17 08:35 03/24/17 08:35 03/24/17 08:35 03/24/17 08:35 - Medications Medications: Current Medications Acetaminophen (Tylenol 325mg Tab) 650 mg PO Q6 PRN PRN Reason: pain 1-10 Aspirin (Ecotrin) 81 mg PO DAILY [facility] Last Admin: 03/24/17 08:23 Dose: 81 mg Atorvastatin Calcium (Lipitor) 20 mg PO HS [facility] Last Admin: 03/23/17 21:10 Dose: 20 mg Calcitriol (Rocaltrol) 0.25 mcg PO DAILY [facility] Last Admin: 03/24/17 08:22 Dose: 0.25 mcg Calcium Acetate (Phoslo) 667 mg PO TID [facility] Last Admin: 03/24/17 08:23 Dose: 667 mg Cholestyramine Resin (Questran) 4 gm PO Q8 [facility] Last Admin: 03/24/17 05:43 Dose: 4 gm Clopidogrel Bisulfate (Plavix) 75 mg PO DAILY [facility] Last Admin: 03/24/17 08:23 Dose: 75 mg Epoetin Brian (Procrit) 4,000 unit IV MWF [facility] Last Admin: 03/22/17 17:08 Dose: 4,000 unit Ergocalciferol (Drisdol 50,000 Intl Units Cap) 1 cap PO QWK [facility] Last Admin: 03/18/17 09:05 Dose: 1 cap Famotidine (Pepcid) 20 mg PO 2100 [facility] Last Admin: 03/23/17 21:10 Dose: 20 mg Gabapentin (Neurontin) 300 mg PO DAILY [facility] Last Admin: 03/24/17 08:23 Dose: 300 mg Heparin Sodium (Porcine) (Heparin) 5,000 units SC Q8 [facility] PRN Reason: Protocol Last Admin: 03/24/17 05:42 Dose: Not Given Hydralazine HCl (Apresoline) 25 mg PO Q8 [facility] Last Admin: 03/24/17 05:41 Dose: 25 mg Insulin Human Regular (Humulin R) 0 units SC ACHS [facility] PRN Reason: Protocol Last Admin: 03/24/17 06:36 Dose: Not Given Isosorbide Mononitrate (Imdur) 60 mg PO DAILY [facility] Last Admin: 03/24/17 08:23 Dose: 60 mg Lactic Acid (Lac-Hydrin 12% Lotion (225 G)) 1 applic TOP Q12 [facility] Last Admin: 03/24/17 08:22 Dose: 1 applic Lactulose (Enulose) 20 gm PO DAILY [facility] Last Admin: 03/24/17 08:32 Dose: Not Given Multivitamins/Minerals (Therapeutic-M Tab) 1 tab PO DAILY [facility] Last Admin: 03/24/17 08:22 Dose: 1 tab Rifaximin (Xifaxan) 550 mg PO BID [facility] PRN Reason: Protocol Last Admin: 03/24/17 08:23 Dose: 550 mg Fluticasone/Salmeterol (Advair Diskus 250/50) 1 puff INH Q12 [facility] Last Admin: 03/24/17 08:21 Dose: 1 puff - Labs Labs: 03/20/17 12:30 03/20/17 13:10 PT 17.3 Seconds (9.8-13.1) H 03/18/17 05:20 INR 1.5 (0.9-1.2) H 03/18/17 05:20 APTT 39.1 Seconds (25.6-37.1) H 03/18/17 05:20 - Constitutional Appears: No Acute Distress - ENT Exam ENT Exam: Mucous Membranes Moist - Respiratory Exam Respiratory Exam: absent: Chest Wall Tenderness - Cardiovascular Exam Cardiovascular Exam: absent: JVD, Rubs - GI/Abdominal Exam GI & Abdominal Exam: Distended, Soft, Normal Bowel Sounds Additional comments: possibly abdominal ascitis - Extremities Exam Extremities Exam: absent: Calf Tenderness - Back Exam Back Exam: absent: CVA tenderness (L), CVA tenderness (R) - Neurological Exam Neurological Exam: Alert Assessment and Plan (1) CKD (chronic kidney disease) requiring chronic dialysis Assessment & Plan: Patient was end stage renal disease receiving physiotherapy Patient appeared to have distention of the abdomen with ascites Serum creatinine noted in the range of 3 or below therefore I will order 24 hours urine for creatinine clearance Patient has been on dialysis at therefore we will continue to do so . Hemodialysis scheduled after current patient of his rehabilitation session. Status: Acute (2) CVA (cerebral vascular accident) Status: Acute
[2017-03-24] MEDS: Epoetin Alfa 4000 UNIT/ML Inj IV SCH (21:02)
[2017-03-25] MEDS: Fluticasone-Salmeterol 250-50mcg Diskus INH SCH ×3 (00:33→21:07)
[2017-03-25] MEDS: Insulin Regular 100 units/ml SC SCH ×5 (00:33→21:10)
[2017-03-25] MEDS: Cholestyramine 4 gm/Pkt UD PO SCH ×4 (00:35→21:08)
[2017-03-25] MEDS: Multivitamin With Minerals Tab PO SCH (08:58)
[2017-03-26] MEDS: Cholestyramine 4 gm/Pkt UD PO SCH ×3 (06:18→21:42)
[2017-03-26] MEDS: Insulin Regular 100 units/ml SC SCH ×4 (07:00→21:45)
[2017-03-26] MEDS: Fluticasone-Salmeterol 250-50mcg Diskus INH SCH ×2 (08:51→21:44)
[2017-03-26] MEDS: Multivitamin With Minerals Tab PO SCH (08:52)
--- NOTE | 2017-03-26 11:22 | CP.PCM.PN ---
Subjective - Date & Time of Evaluation Date of Evaluation: 03/26/17 Time of Evaluation: 11:00 - Subjective Subjective: Patient was seen and examined during physical therapy. Is awake and alert, sitting in wheelchair. He has no complaints. Cooperating well with physical therapy. No acute events overnight as per nursing staff. Having good bowel movements. Continues to be in good spirits. denies cp, sob, n/v/d, calf tenderness. Hemodynamically stable. Objective - Vital Signs/Intake and Output Vital Signs (last 24 hours): Temp Pulse Resp BP Pulse Ox 97.5 F L 82 20 131/85 99 03/26/17 08:13 03/26/17 08:13 03/26/17 08:13 03/26/17 08:13 03/26/17 08:13 - Medications Medications: Current Medications Acetaminophen (Tylenol 325mg Tab) 650 mg PO Q6 PRN PRN Reason: pain 1-10 Aspirin (Ecotrin) 81 mg PO DAILY [facility] Last Admin: 03/26/17 08:51 Dose: 81 mg Atorvastatin Calcium (Lipitor) 20 mg PO HS [facility] Last Admin: 03/25/17 21:24 Dose: 20 mg Calcitriol (Rocaltrol) 0.25 mcg PO DAILY [facility] Last Admin: 03/26/17 08:53 Dose: 0.25 mcg Calcium Acetate (Phoslo) 667 mg PO TID [facility] Last Admin: 03/26/17 08:52 Dose: 667 mg Cholestyramine Resin (Questran) 4 gm PO Q8 [facility] Last Admin: 03/26/17 06:18 Dose: 4 gm Clopidogrel Bisulfate (Plavix) 75 mg PO DAILY [facility] Last Admin: 03/26/17 08:52 Dose: 75 mg Epoetin Brian (Procrit) 4,000 unit IV MWF [facility] Last Admin: 03/24/17 21:02 Dose: 4,000 unit Ergocalciferol (Drisdol 50,000 Intl Units Cap) 1 cap PO QWK [facility] Last Admin: 03/18/17 09:05 Dose: 1 cap Famotidine (Pepcid) 20 mg PO 2100 [facility] Last Admin: 03/25/17 21:08 Dose: 20 mg Gabapentin (Neurontin) 300 mg PO DAILY [facility] Last Admin: 03/26/17 08:52 Dose: 300 mg Heparin Sodium (Porcine) (Heparin) 5,000 units SC Q8 [facility] PRN Reason: Protocol Last Admin: 03/26/17 06:14 Dose: 5,000 units Hydralazine HCl (Apresoline) 25 mg PO Q8 [facility] Last Admin: 03/26/17 06:17 Dose: 25 mg Insulin Human Regular (Humulin R) 0 units SC ACHS [facility] PRN Reason: Protocol Last Admin: 03/26/17 07:00 Dose: Not Given Isosorbide Mononitrate (Imdur) 60 mg PO DAILY [facility] Last Admin: 03/26/17 08:52 Dose: 60 mg Lactic Acid (Lac-Hydrin 12% Lotion (225 G)) 1 applic TOP Q12 [facility] Last Admin: 03/26/17 08:52 Dose: 1 applic Lactulose (Enulose) 20 gm PO DAILY [facility] Last Admin: 03/26/17 08:51 Dose: Not Given Multivitamins/Minerals (Therapeutic-M Tab) 1 tab PO DAILY [facility] Last Admin: 03/26/17 08:52 Dose: 1 tab Rifaximin (Xifaxan) 550 mg PO BID [facility] PRN Reason: Protocol Last Admin: 03/26/17 08:52 Dose: 550 mg Fluticasone/Salmeterol (Advair Diskus 250/50) 1 puff INH Q12 [facility] Last Admin: 03/26/17 08:51 Dose: 1 puff - Labs Labs: 03/20/17 12:30 03/20/17 13:10 PT 17.3 Seconds (9.8-13.1) H 03/18/17 05:20 INR 1.5 (0.9-1.2) H 03/18/17 05:20 APTT 39.1 Seconds (25.6-37.1) H 03/18/17 05:20 - Additional Findings Additional findings: Physical exam: Constitutional- cooperative, awake, alert. Head- NCAT, PERRL Eye- PERRL, normal accommodation ENT- normal exam, MMM. Neck- normal inspection, supple, no JVD Respiratory- CTAB, no wheezes rales rhonchi Cardiovascular- RRR, +S1, +S2 no MRG GI/Abdominal- normal bowel sounds, soft, no mass, no hsm Skin- warm, dry Extremities Exam- normal capillary refill, normal inspection Neurological Exam- alert, awake Psych- normal mood, normal affect Assessment and Plan - Assessment and Plan (Free Text) Plan: Plan: This is a 51 old male with hx of DM II, HTN, Cirrhosis and ESRD on Hemo- dialysis MWF was diagnosed with acute CVA 03/12/17 with left hemiparesis and slurred speech . He was transferred from the [facility] [place] to the rehab Unit at [facility] for rehabilitation and continued management. 1. Acute CVA with left facial droop , slurred speech and left sided weakness- improving Consult with Dr Murillo Spray Machine Tender appreciated Continue OT/PT/ST continue aspirin and Plavix, and Lipitor 2. ESRD on HD MWF Consult Dr Mancia [facility] for Dialysis appreciated Continue PhosLo, calcitriol, Procrit 24 hour urine Protein collection elevated at 1177 3. DM II controlled Regular Insulin sliding scale according to Accucheck 4. CHF on Lasix Isosorbide Mononitrate 5. Cirrhosis continue Rifaximin,Lactulose, cholestyramine 6. COPD Continue Advair 7. Anemia of chronic kidney disease - follow Hb 8. DVT prophylaxis Heparin
--- NOTE | 2017-03-26 11:25 | CP.PCM.PN ---
Subjective - Date & Time of Evaluation Date of Evaluation: 03/26/17 Time of Evaluation: 11:22 - Subjective Subjective: Patient remained in acute rehabilitation And receiving physiotherapy. Patient sitting up in the chair. Appetite is good No chest pain no shortness of breath Objective - Vital Signs/Intake and Output Vital Signs (last 24 hours): Temp Pulse Resp BP Pulse Ox 97.5 F L 82 20 131/85 99 03/26/17 08:13 03/26/17 08:13 03/26/17 08:13 03/26/17 08:13 03/26/17 08:13 - Medications Medications: Current Medications Acetaminophen (Tylenol 325mg Tab) 650 mg PO Q6 PRN PRN Reason: pain 1-10 Aspirin (Ecotrin) 81 mg PO DAILY [facility] Last Admin: 03/26/17 08:51 Dose: 81 mg Atorvastatin Calcium (Lipitor) 20 mg PO HS [facility] Last Admin: 03/25/17 21:24 Dose: 20 mg Calcitriol (Rocaltrol) 0.25 mcg PO DAILY [facility] Last Admin: 03/26/17 08:53 Dose: 0.25 mcg Calcium Acetate (Phoslo) 667 mg PO TID [facility] Last Admin: 03/26/17 08:52 Dose: 667 mg Cholestyramine Resin (Questran) 4 gm PO Q8 [facility] Last Admin: 03/26/17 06:18 Dose: 4 gm Clopidogrel Bisulfate (Plavix) 75 mg PO DAILY [facility] Last Admin: 03/26/17 08:52 Dose: 75 mg Epoetin Brian (Procrit) 4,000 unit IV MWF [facility] Last Admin: 03/24/17 21:02 Dose: 4,000 unit Ergocalciferol (Drisdol 50,000 Intl Units Cap) 1 cap PO QWK [facility] Last Admin: 03/18/17 09:05 Dose: 1 cap Famotidine (Pepcid) 20 mg PO 2100 [facility] Last Admin: 03/25/17 21:08 Dose: 20 mg Gabapentin (Neurontin) 300 mg PO DAILY [facility] Last Admin: 03/26/17 08:52 Dose: 300 mg Heparin Sodium (Porcine) (Heparin) 5,000 units SC Q8 [facility] PRN Reason: Protocol Last Admin: 03/26/17 06:14 Dose: 5,000 units Hydralazine HCl (Apresoline) 25 mg PO Q8 [facility] Last Admin: 03/26/17 06:17 Dose: 25 mg Insulin Human Regular (Humulin R) 0 units SC ACHS [facility] PRN Reason: Protocol Last Admin: 03/26/17 07:00 Dose: Not Given Isosorbide Mononitrate (Imdur) 60 mg PO DAILY [facility] Last Admin: 03/26/17 08:52 Dose: 60 mg Lactic Acid (Lac-Hydrin 12% Lotion (225 G)) 1 applic TOP Q12 [facility] Last Admin: 03/26/17 08:52 Dose: 1 applic Lactulose (Enulose) 20 gm PO DAILY [facility] Last Admin: 03/26/17 08:51 Dose: Not Given Multivitamins/Minerals (Therapeutic-M Tab) 1 tab PO DAILY [facility] Last Admin: 03/26/17 08:52 Dose: 1 tab Rifaximin (Xifaxan) 550 mg PO BID [facility] PRN Reason: Protocol Last Admin: 03/26/17 08:52 Dose: 550 mg Fluticasone/Salmeterol (Advair Diskus 250/50) 1 puff INH Q12 [facility] Last Admin: 03/26/17 08:51 Dose: 1 puff - Labs Labs: 03/20/17 12:30 03/20/17 13:10 PT 17.3 Seconds (9.8-13.1) H 03/18/17 05:20 INR 1.5 (0.9-1.2) H 03/18/17 05:20 APTT 39.1 Seconds (25.6-37.1) H 03/18/17 05:20 - Constitutional Appears: No Acute Distress - ENT Exam ENT Exam: Mucous Membranes Moist - Respiratory Exam Respiratory Exam: absent: Chest Wall Tenderness - GI/Abdominal Exam GI & Abdominal Exam: Soft, Normal Bowel Sounds. absent: Guarding - Extremities Exam Extremities Exam: absent: Calf Tenderness - Back Exam Back Exam: absent: CVA tenderness (L), CVA tenderness (R) - Neurological Exam Neurological Exam: Alert Assessment and Plan (1) CKD (chronic kidney disease) requiring chronic dialysis Assessment & Plan: End stage renal disease on dialysis MWF. 24 hours urine for protein 1. 1 Gm. Volume reported to be around 100 mL only. Patient scheduled to have dialysis after completing his session in the afternoon. Order was given. Vital signs stable Patient has been tolerating dialysis well. Status: Acute (2) CVA (cerebral vascular accident) Status: Acute
--- NOTE | 2017-03-26 16:28 | CP.PCM.PN ---
Subjective - Date & Time of Evaluation Date of Evaluation: 03/26/17 Time of Evaluation: 16:27 - Subjective Subjective: Patient is doing better in therapies ambulatin 60' now with RW set for HD now no pain continue current care Objective - Vital Signs/Intake and Output Vital Signs (last 24 hours): Temp Pulse Resp BP Pulse Ox 97.5 F L 84 20 143/95 H 99 03/26/17 08:13 03/26/17 13:58 03/26/17 08:13 03/26/17 13:58 03/26/17 08:13 - Medications Medications: Current Medications Acetaminophen (Tylenol 325mg Tab) 650 mg PO Q6 PRN PRN Reason: pain 1-10 Aspirin (Ecotrin) 81 mg PO DAILY [facility] Last Admin: 03/26/17 08:51 Dose: 81 mg Atorvastatin Calcium (Lipitor) 20 mg PO HS [facility] Last Admin: 03/25/17 21:24 Dose: 20 mg Calcitriol (Rocaltrol) 0.25 mcg PO DAILY [facility] Last Admin: 03/26/17 08:53 Dose: 0.25 mcg Calcium Acetate (Phoslo) 667 mg PO TID [facility] Last Admin: 03/26/17 12:21 Dose: 667 mg Cholestyramine Resin (Questran) 4 gm PO Q8 [facility] Last Admin: 03/26/17 13:57 Dose: 4 gm Clopidogrel Bisulfate (Plavix) 75 mg PO DAILY [facility] Last Admin: 03/26/17 08:52 Dose: 75 mg Epoetin Brian (Procrit) 4,000 unit IV MWF [facility] Last Admin: 03/24/17 21:02 Dose: 4,000 unit Ergocalciferol (Drisdol 50,000 Intl Units Cap) 1 cap PO QWK [facility] Last Admin: 03/18/17 09:05 Dose: 1 cap Famotidine (Pepcid) 20 mg PO 2100 [facility] Last Admin: 03/25/17 21:08 Dose: 20 mg Gabapentin (Neurontin) 300 mg PO DAILY [facility] Last Admin: 03/26/17 08:52 Dose: 300 mg Heparin Sodium (Porcine) (Heparin) 5,000 units SC Q8 [facility] PRN Reason: Protocol Last Admin: 03/26/17 13:57 Dose: 5,000 units Hydralazine HCl (Apresoline) 25 mg PO Q8 [facility] Last Admin: 03/26/17 13:58 Dose: 25 mg Insulin Human Regular (Humulin R) 0 units SC ACHS [facility] PRN Reason: Protocol Last Admin: 03/26/17 12:20 Dose: 2 unit Isosorbide Mononitrate (Imdur) 60 mg PO DAILY [facility] Last Admin: 03/26/17 08:52 Dose: 60 mg Lactic Acid (Lac-Hydrin 12% Lotion (225 G)) 1 applic TOP Q12 [facility] Last Admin: 03/26/17 08:52 Dose: 1 applic Lactulose (Enulose) 20 gm PO DAILY [facility] Last Admin: 03/26/17 08:51 Dose: Not Given Multivitamins/Minerals (Therapeutic-M Tab) 1 tab PO DAILY [facility] Last Admin: 03/26/17 08:52 Dose: 1 tab Rifaximin (Xifaxan) 550 mg PO BID [facility] PRN Reason: Protocol Last Admin: 03/26/17 08:52 Dose: 550 mg Fluticasone/Salmeterol (Advair Diskus 250/50) 1 puff INH Q12 [facility] Last Admin: 03/26/17 08:51 Dose: 1 puff - Labs Labs: 03/20/17 12:30 03/20/17 13:10 PT 17.3 Seconds (9.8-13.1) H 03/18/17 05:20 INR 1.5 (0.9-1.2) H 03/18/17 05:20 APTT 39.1 Seconds (25.6-37.1) H 03/18/17 05:20
[2017-03-26] MEDS: Epoetin Alfa 4000 UNIT/ML Inj IV SCH (17:15)
[2017-03-27] MEDS: Cholestyramine 4 gm/Pkt UD PO SCH ×3 (06:43→21:35)
[2017-03-27] MEDS: Insulin Regular 100 units/ml SC SCH ×4 (07:01→21:34)
[2017-03-27] MEDS: Fluticasone-Salmeterol 250-50mcg Diskus INH SCH ×2 (08:51→21:32)
[2017-03-27] MEDS: Multivitamin With Minerals Tab PO SCH (08:55)
--- NOTE | 2017-03-27 13:21 | PN ---
NEUROLOGY PROGRESS NOTE DATE: SUBJECTIVE: The patient is sitting on the chair, in no acute distress. PHYSICAL EXAMINATION VITAL SIGNS: His blood pressure is 134/81, heart rate 82 per minute, breathing at the rate of 16 per minute, temperature is 99.5 degree Fahrenheit. HEENT: Head is normocephalic and atraumatic. NECK: Supple. There are no carotid bruits. LUNGS: Clear. CARDIOVASCULAR SYSTEM: S1 and S2 audible. No murmurs. ABDOMEN: Soft and nontender. Bowel sounds are present. NEUROLOGIC: Mental status: The patient is awake, alert and oriented to time, place, and person. Speech is slightly dysarthric. His naming and repetition is good. Cranial nerve examination: Pupils 2 mm, minimally reactive. Extraocular movements are intact. There is decreased nasolabial fold on the left side. Palate is upgoing bilaterally and tongue is midline. Motor examination: Tone is normal. There is left-sided hemiparesis with power in the left upper extremity 3-4/5 and power in the left lower extremity also is 3-4/5. Power in the right side is 5/5. IMPRESSION: 1. Cerebrovascular accident with right basal ganglionic infarct with left hemiparesis. 2. End-stage renal disease, on hemodialysis. RECOMMENDATION: 1. The patient has shown improvement in his left-sided weakness. 2. The patient to be continued on aspirin and Plavix. 3. The patient also to be continued on statin. The patient is tolerating his medication very well. 4. The patient's blood pressure is better controlled. 5. The patient is on physical therapy and speech therapy. 6. Please continue other treatment and supportive care. Thank you for the opportunity to participate in the care of this patient. Tom Eller MD
--- NOTE | 2017-03-27 16:40 | CP.PCM.PN ---
Subjective - Date & Time of Evaluation Date of Evaluation: 03/27/17 Time of Evaluation: 16:36 - Subjective Subjective: Follow up Nephrology Consultation Note Assessment: Stable Diabetic chronic Kidney Disease (E11.22) Hypertensive Chronic Kidney Disease (I12.0) End stage renal disease (N18.6) dependence on hemodialysis (Z99.2) MWF) via AVF Anemia (D64.9), Hyperphosphatemia (E83.39), Secondary Hyperparathyroidism (E21.1 ), HTN (I12.0) s/p CVA Plan: No acute need for dialysis today. Will plan for dialysis wednesday. Continue with Nephrovite 1 tab/day. PRBC as needed for anemia. On RUSLAN as epogen 4000 unit with HD, last Hb 10.6 Continue with phos binders, last phos level 4 no VDRA. Last PTH level 63. on vit D supplements BP control with meds as ordered. Patient not on RAAS [place] but may add if BP high Glycemic control, Dialysis consistent diet Further work up/management as per primary team Dose meds/antibiotics (if needed) for ESRD status. Avoid fleets enema/magnesium based laxatives. Thanks for allowing me to participate in care of your patient. Will follow patient with you. Please call if any Qs Dr Cuong Shaikh Office: [phone] Subjective: Noted events overnight. Patients feels okay. Denies chest pain, palpitation, shortness of breath, leg swelling. No urinary complaints has left arm weakness Physical Examination: General Appearance: Comfortable, in no acute respiratory distress, co- operative. Vitals reviewed and noted as below Lungs: Normal respiratory rate/effort. Breath sounds bilateral equal and clear Heart: Normal rate. s1s2 normal. No rub or gallop. Extremities: no edema. Neurological: Patient is alert, awake and oriented to person, place and time. LUE plegia. Strength bilateral appropriate and equal Skin: Warm and dry. Normal turgor. No rash. Palpitation: Normal elasticity for age Abdomen: Abdomen is soft. Bowel sounds +. There is no abdominal tenderness, no guarding/rigidity or organomegaly : kidney or bladder not palpable Access: AVF Labs/imaging reviewed. Past medical history, past surgical history, family history, social history, allergy reviewed Objective - Vital Signs/Intake and Output Vital Signs (last 24 hours): Temp Pulse Resp BP Pulse Ox 98.0 F 85 19 116/67 98 03/27/17 11:11 03/27/17 11:11 03/27/17 11:11 03/27/17 11:11 03/27/17 11:11 - Medications Medications: Current Medications Acetaminophen (Tylenol 325mg Tab) 650 mg PO Q6 PRN PRN Reason: pain 1-10 Aspirin (Ecotrin) 81 mg PO DAILY [facility] Last Admin: 03/27/17 08:52 Dose: 81 mg Atorvastatin Calcium (Lipitor) 20 mg PO HS [facility] Last Admin: 03/26/17 21:42 Dose: 20 mg Calcitriol (Rocaltrol) 0.25 mcg PO DAILY [facility] Last Admin: 03/27/17 08:55 Dose: 0.25 mcg Calcium Acetate (Phoslo) 667 mg PO TID [facility] Last Admin: 03/27/17 16:17 Dose: 667 mg Cholestyramine Resin (Questran) 4 gm PO Q8 [facility] Last Admin: 03/27/17 12:59 Dose: 4 gm Clopidogrel Bisulfate (Plavix) 75 mg PO DAILY [facility] Last Admin: 03/27/17 08:54 Dose: 75 mg Epoetin Brian (Procrit) 4,000 unit IV MWF [facility] Last Admin: 03/26/17 17:15 Dose: 4,000 unit Ergocalciferol (Drisdol 50,000 Intl Units Cap) 1 cap PO QWK [facility] Last Admin: 03/18/17 09:05 Dose: 1 cap Famotidine (Pepcid) 20 mg PO 2100 [facility] Last Admin: 03/26/17 21:44 Dose: 20 mg Gabapentin (Neurontin) 300 mg PO DAILY [facility] Last Admin: 03/27/17 08:54 Dose: 300 mg Heparin Sodium (Porcine) (Heparin) 5,000 units SC Q8 [facility] PRN Reason: Protocol Last Admin: 03/27/17 12:59 Dose: 5,000 units Hydralazine HCl (Apresoline) 25 mg PO Q8 [facility] Last Admin: 03/27/17 16:16 Dose: 25 mg Insulin Human Regular (Humulin R) 0 units SC ACHS [facility] PRN Reason: Protocol Last Admin: 03/27/17 16:19 Dose: 2 unit Isosorbide Mononitrate (Imdur) 60 mg PO DAILY [facility] Last Admin: 03/27/17 08:54 Dose: 60 mg Lactic Acid (Lac-Hydrin 12% Lotion (225 G)) 1 applic TOP Q12 [facility] Last Admin: 03/27/17 08:54 Dose: 1 applic Lactulose (Enulose) 20 gm PO DAILY [facility] Last Admin: 03/27/17 08:53 Dose: Not Given Multivitamins/Minerals (Therapeutic-M Tab) 1 tab PO DAILY [facility] Last Admin: 03/27/17 08:55 Dose: 1 tab Rifaximin (Xifaxan) 550 mg PO BID [facility] PRN Reason: Protocol Last Admin: 03/27/17 16:18 Dose: 550 mg Fluticasone/Salmeterol (Advair Diskus 250/50) 1 puff INH Q12 [facility] Last Admin: 03/27/17 08:51 Dose: 1 puff - Labs Labs: 03/20/17 12:30 03/20/17 13:10 PT 17.3 Seconds (9.8-13.1) H 03/18/17 05:20 INR 1.5 (0.9-1.2) H 03/18/17 05:20 APTT 39.1 Seconds (25.6-37.1) H 03/18/17 05:20
[2017-03-27] MEDS ORDERED: Fluticasone-Salmeterol 250-50mcg Diskus INH SCH (21:00)
[2017-03-28] MEDS: Cholestyramine 4 gm/Pkt UD PO SCH ×3 (06:08→21:11)
[2017-03-28] MEDS: Insulin Regular 100 units/ml SC SCH ×4 (06:35→21:11)
[2017-03-28] MEDS: Fluticasone-Salmeterol 250-50mcg Diskus INH SCH ×2 (08:49→21:09)
[2017-03-28] MEDS: Multivitamin With Minerals Tab PO SCH (08:53)
--- NOTE | 2017-03-28 13:00 | CP.PCM.PN ---
Subjective - Date & Time of Evaluation Date of Evaluation: 03/28/17 Time of Evaluation: 12:59 - Subjective Subjective: Follow up Nephrology Consultation Note Assessment: Stable Diabetic chronic Kidney Disease (E11.22) Hypertensive Chronic Kidney Disease (I12.0) End stage renal disease (N18.6) dependence on hemodialysis (Z99.2) MWF) via AVF Anemia (D64.9), Hyperphosphatemia (E83.39), Secondary Hyperparathyroidism (E21.1 ), HTN (I12.0) s/p CVA Plan: No acute need for dialysis today. Will plan for dialysis wednesday. Continue with Nephrovite 1 tab/day. PRBC as needed for anemia. On RUSLAN as epogen 4000 unit with HD, last Hb 10.6 Continue with phos binders, last phos level 4 no VDRA. Last PTH level 63. on vit D supplements BP control with meds as ordered. Patient not on RAAS [place] but may add if BP high Glycemic control, Dialysis consistent diet Further work up/management as per primary team Dose meds/antibiotics (if needed) for ESRD status. Avoid fleets enema/magnesium based laxatives. Thanks for allowing me to participate in care of your patient. Will follow patient with you. Please call if any Qs Dr Cuong Shaikh Office: [phone] Subjective: Noted events overnight. Patients feels okay. Denies chest pain, palpitation, shortness of breath, leg swelling. No urinary complaints has left arm weakness Physical Examination: General Appearance: Comfortable, in no acute respiratory distress, co- operative. Vitals reviewed and noted as below Lungs: Normal respiratory rate/effort. Breath sounds bilateral equal and clear Heart: Normal rate. s1s2 normal. No rub or gallop. Extremities: no edema. Neurological: Patient is alert, awake and oriented to person, place and time. LUE paresis. Strength bilateral appropriate and equal Skin: Warm and dry. Normal turgor. No rash. Palpitation: Normal elasticity for age Abdomen: Abdomen is soft. Bowel sounds +. There is no abdominal tenderness, no guarding/rigidity or organomegaly : kidney or bladder not palpable Access: AVF Labs/imaging reviewed. Past medical history, past surgical history, family history, social history, allergy reviewed Objective - Vital Signs/Intake and Output Vital Signs (last 24 hours): Temp Pulse Resp BP Pulse Ox 98.1 F 76 19 139/76 97 03/28/17 08:51 03/28/17 08:51 03/28/17 08:51 03/28/17 08:51 03/28/17 08:51 - Medications Medications: Current Medications Acetaminophen (Tylenol 325mg Tab) 650 mg PO Q6 PRN PRN Reason: pain 1-10 Aspirin (Ecotrin) 81 mg PO DAILY [facility] Last Admin: 03/28/17 08:50 Dose: 81 mg Atorvastatin Calcium (Lipitor) 20 mg PO HS [facility] Last Admin: 03/27/17 21:35 Dose: 20 mg Calcium Acetate (Phoslo) 667 mg PO TID [facility] Last Admin: 03/28/17 08:52 Dose: 667 mg Cholestyramine Resin (Questran) 4 gm PO Q8 [facility] Last Admin: 03/28/17 06:08 Dose: 4 gm Clopidogrel Bisulfate (Plavix) 75 mg PO DAILY [facility] Last Admin: 03/28/17 08:52 Dose: 75 mg Epoetin Brian (Procrit) 4,000 unit IV MWF [facility] Last Admin: 03/26/17 17:15 Dose: 4,000 unit Ergocalciferol (Drisdol 50,000 Intl Units Cap) 1 cap PO QWK [facility] Last Admin: 03/18/17 09:05 Dose: 1 cap Famotidine (Pepcid) 20 mg PO 2100 [facility] Last Admin: 03/27/17 21:35 Dose: 20 mg Gabapentin (Neurontin) 300 mg PO DAILY [facility] Last Admin: 03/28/17 08:52 Dose: 300 mg Heparin Sodium (Porcine) (Heparin) 5,000 units SC Q8 [facility] PRN Reason: Protocol Last Admin: 03/28/17 06:08 Dose: 5,000 units Hydralazine HCl (Apresoline) 25 mg PO Q8 [facility] Last Admin: 03/28/17 06:07 Dose: 25 mg Insulin Human Regular (Humulin R) 0 units SC ACHS [facility] PRN Reason: Protocol Last Admin: 03/28/17 11:39 Dose: 3 unit Isosorbide Mononitrate (Imdur) 60 mg PO DAILY [facility] Last Admin: 03/28/17 08:51 Dose: 60 mg Lactic Acid (Lac-Hydrin 12% Lotion (225 G)) 1 applic TOP Q12 [facility] Last Admin: 03/28/17 08:51 Dose: 1 applic Lactulose (Enulose) 20 gm PO DAILY [facility] Last Admin: 03/28/17 08:51 Dose: 20 gm Multivitamins/Minerals (Therapeutic-M Tab) 1 tab PO DAILY [facility] Last Admin: 03/28/17 08:53 Dose: 1 tab Rifaximin (Xifaxan) 550 mg PO BID [facility] PRN Reason: Protocol Last Admin: 03/28/17 08:54 Dose: 550 mg Fluticasone/Salmeterol (Advair Diskus 250/50) 1 puff INH Q12 [facility] Last Admin: 03/28/17 08:49 Dose: 1 puff - Labs Labs: 03/20/17 12:30 03/20/17 13:10 PT 17.3 Seconds (9.8-13.1) H 03/18/17 05:20 INR 1.5 (0.9-1.2) H 03/18/17 05:20 APTT 39.1 Seconds (25.6-37.1) H 03/18/17 05:20
[2017-03-29] MEDS: Cholestyramine 4 gm/Pkt UD PO SCH ×3 (06:12→21:15)
[2017-03-29] MEDS: Insulin Regular 100 units/ml SC SCH ×4 (06:34→21:16)
[2017-03-29] MEDS: Fluticasone-Salmeterol 250-50mcg Diskus INH SCH ×2 (08:20→21:14)
[2017-03-29] MEDS: Multivitamin With Minerals Tab PO SCH (08:22)
--- NOTE | 2017-03-29 11:37 | CP.PCM.PN ---
Subjective - Date & Time of Evaluation Date of Evaluation: 03/29/17 Time of Evaluation: 11:32 - Subjective Subjective: Patient seen in that acute rehabilitation unit. Patient is awake and communicating well No nausea no vomiting Vital signs stable Objective - Vital Signs/Intake and Output Vital Signs (last 24 hours): Temp Pulse Resp BP Pulse Ox 96.3 F L 81 20 136/85 98 03/29/17 09:21 03/29/17 09:21 03/29/17 09:21 03/29/17 09:21 03/29/17 09:21 - Medications Medications: Current Medications Acetaminophen (Tylenol 325mg Tab) 650 mg PO Q6 PRN PRN Reason: pain 1-10 Aspirin (Ecotrin) 81 mg PO DAILY [facility] Last Admin: 03/29/17 08:22 Dose: 81 mg Atorvastatin Calcium (Lipitor) 20 mg PO HS [facility] Last Admin: 03/28/17 21:11 Dose: 20 mg Calcium Acetate (Phoslo) 667 mg PO TID [facility] Last Admin: 03/29/17 08:22 Dose: 667 mg Cholestyramine Resin (Questran) 4 gm PO Q8 [facility] Last Admin: 03/29/17 06:12 Dose: 4 gm Clopidogrel Bisulfate (Plavix) 75 mg PO DAILY [facility] Last Admin: 03/29/17 08:21 Dose: 75 mg Epoetin Brian (Procrit) 4,000 unit IV MWF [facility] Last Admin: 03/26/17 17:15 Dose: 4,000 unit Ergocalciferol (Drisdol 50,000 Intl Units Cap) 1 cap PO QWK [facility] Last Admin: 03/18/17 09:05 Dose: 1 cap Famotidine (Pepcid) 20 mg PO 2100 [facility] Last Admin: 03/28/17 21:11 Dose: 20 mg Gabapentin (Neurontin) 300 mg PO DAILY [facility] Last Admin: 03/29/17 08:22 Dose: 300 mg Heparin Sodium (Porcine) (Heparin) 5,000 units SC Q8 [facility] PRN Reason: Protocol Last Admin: 03/29/17 06:10 Dose: 5,000 units Hydralazine HCl (Apresoline) 25 mg PO Q8 [facility] Last Admin: 03/29/17 06:09 Dose: 25 mg Insulin Human Regular (Humulin R) 0 units SC ACHS [facility] PRN Reason: Protocol Last Admin: 03/29/17 06:34 Dose: 1 unit Isosorbide Mononitrate (Imdur) 60 mg PO DAILY [facility] Last Admin: 03/29/17 08:21 Dose: 60 mg Lactic Acid (Lac-Hydrin 12% Lotion (225 G)) 1 applic TOP Q12 [facility] Last Admin: 03/29/17 08:21 Dose: 1 applic Lactulose (Enulose) 20 gm PO DAILY [facility] Last Admin: 03/29/17 08:23 Dose: Not Given Multivitamins/Minerals (Therapeutic-M Tab) 1 tab PO DAILY [facility] Last Admin: 03/29/17 08:22 Dose: 1 tab Rifaximin (Xifaxan) 550 mg PO BID [facility] PRN Reason: Protocol Last Admin: 03/29/17 08:21 Dose: 550 mg Fluticasone/Salmeterol (Advair Diskus 250/50) 1 puff INH Q12 [facility] Last Admin: 03/29/17 08:20 Dose: 1 puff - Labs Labs: 03/20/17 12:30 03/20/17 13:10 PT 17.3 Seconds (9.8-13.1) H 03/18/17 05:20 INR 1.5 (0.9-1.2) H 03/18/17 05:20 APTT 39.1 Seconds (25.6-37.1) H 03/18/17 05:20 - Constitutional Appears: No Acute Distress - ENT Exam ENT Exam: Mucous Membranes Moist - Respiratory Exam Respiratory Exam: NORMAL BREATHING PATTERN. absent: Chest Wall Tenderness - Cardiovascular Exam Cardiovascular Exam: absent: JVD, Rubs - GI/Abdominal Exam GI & Abdominal Exam: Soft, Normal Bowel Sounds - Extremities Exam Extremities Exam: absent: Calf Tenderness - Back Exam Back Exam: absent: CVA tenderness (L), CVA tenderness (R) - Neurological Exam Neurological Exam: Alert - Skin Skin Exam: absent: Cyanosis Assessment and Plan (1) CKD (chronic kidney disease) requiring chronic dialysis Assessment & Plan: End stage renal disease on maintenance dialysis. Patient scheduled to have dialysis after rehabilitation session. I discuss the order with dialysis nurse regarding this patient. Patient with end stage renal disease receiving dialysis MWF Anemia undercontrolled on EPO Hyperphosphatemia undercontrolled Secondary hyperparathyroidism and controlled Patient was transferred because of CVA which has been improving Diabetes as per primary team Hypertension appeared to be controlled Renal diabetic diet as instructed. Status: Acute (2) CVA (cerebral vascular accident) Status: Acute
--- NOTE | 2017-03-29 12:25 | CP.PCM.PN ---
Subjective - Date & Time of Evaluation Date of Evaluation: 03/29/17 Time of Evaluation: 12:20 - Subjective Subjective: Patient seen and examined. saitting in chair in NAD. Hemodynamically stable, afebrile. Participating with PT Still with left facial droop and some slurred speech Objective - Vital Signs/Intake and Output Vital Signs (last 24 hours): Temp Pulse Resp BP Pulse Ox 96.3 F L 81 20 136/85 98 03/29/17 09:21 03/29/17 09:21 03/29/17 09:21 03/29/17 09:21 03/29/17 09:21 - Medications Medications: Current Medications Acetaminophen (Tylenol 325mg Tab) 650 mg PO Q6 PRN PRN Reason: pain 1-10 Aspirin (Ecotrin) 81 mg PO DAILY [facility] Last Admin: 03/29/17 08:22 Dose: 81 mg Atorvastatin Calcium (Lipitor) 20 mg PO HS [facility] Last Admin: 03/28/17 21:11 Dose: 20 mg Calcium Acetate (Phoslo) 667 mg PO TID [facility] Last Admin: 03/29/17 08:22 Dose: 667 mg Cholestyramine Resin (Questran) 4 gm PO Q8 [facility] Last Admin: 03/29/17 06:12 Dose: 4 gm Clopidogrel Bisulfate (Plavix) 75 mg PO DAILY [facility] Last Admin: 03/29/17 08:21 Dose: 75 mg Epoetin Brian (Procrit) 4,000 unit IV MWF [facility] Last Admin: 03/26/17 17:15 Dose: 4,000 unit Ergocalciferol (Drisdol 50,000 Intl Units Cap) 1 cap PO QWK [facility] Last Admin: 03/18/17 09:05 Dose: 1 cap Famotidine (Pepcid) 20 mg PO 2100 [facility] Last Admin: 03/28/17 21:11 Dose: 20 mg Gabapentin (Neurontin) 300 mg PO DAILY [facility] Last Admin: 03/29/17 08:22 Dose: 300 mg Heparin Sodium (Porcine) (Heparin) 5,000 units SC Q8 [facility] PRN Reason: Protocol Last Admin: 03/29/17 06:10 Dose: 5,000 units Hydralazine HCl (Apresoline) 25 mg PO Q8 [facility] Last Admin: 03/29/17 06:09 Dose: 25 mg Insulin Human Regular (Humulin R) 0 units SC ACHS [facility] PRN Reason: Protocol Last Admin: 03/29/17 06:34 Dose: 1 unit Isosorbide Mononitrate (Imdur) 60 mg PO DAILY [facility] Last Admin: 03/29/17 08:21 Dose: 60 mg Lactic Acid (Lac-Hydrin 12% Lotion (225 G)) 1 applic TOP Q12 [facility] Last Admin: 03/29/17 08:21 Dose: 1 applic Lactulose (Enulose) 20 gm PO DAILY [facility] Last Admin: 03/29/17 08:23 Dose: Not Given Multivitamins/Minerals (Therapeutic-M Tab) 1 tab PO DAILY [facility] Last Admin: 03/29/17 08:22 Dose: 1 tab Rifaximin (Xifaxan) 550 mg PO BID [facility] PRN Reason: Protocol Last Admin: 03/29/17 08:21 Dose: 550 mg Fluticasone/Salmeterol (Advair Diskus 250/50) 1 puff INH Q12 [facility] Last Admin: 03/29/17 08:20 Dose: 1 puff - Labs Labs: 03/20/17 12:30 03/20/17 13:10 PT 17.3 Seconds (9.8-13.1) H 03/18/17 05:20 INR 1.5 (0.9-1.2) H 03/18/17 05:20 APTT 39.1 Seconds (25.6-37.1) H 03/18/17 05:20 - Constitutional Appears: Non-toxic, No Acute Distress - Head Exam Head Exam: ATRAUMATIC, NORMAL INSPECTION, NORMOCEPHALIC - Eye Exam Eye Exam: EOMI, Normal appearance, PERRL Pupil Exam: NORMAL ACCOMODATION - ENT Exam ENT Exam: Mucous Membranes Moist, Normal Exam - Neck Exam Neck Exam: Full ROM, Normal Inspection - Respiratory Exam Respiratory Exam: Clear to Ausculation Bilateral, NORMAL BREATHING PATTERN. absent: Rales, Rhonchi, Wheezes - Cardiovascular Exam Cardiovascular Exam: REGULAR RHYTHM, RRR, +S1, +S2. absent: JVD - GI/Abdominal Exam GI & Abdominal Exam: Soft, Normal Bowel Sounds. absent: Distended, Guarding, Tenderness, Rebound - Rectal Exam Rectal Exam: Deferred - Extremities Exam Extremities Exam: Full ROM. absent: Calf Tenderness, Pedal Edema Additional comments: LUE AVF - Back Exam Back Exam: NORMAL INSPECTION - Neurological Exam Neurological Exam: Alert, Awake, Oriented x3 Additional comments: left facial droop left side weakness slurred speech - Psychiatric Exam Psychiatric exam: Normal Affect - Skin Skin Exam: Dry, Intact, Normal Color, Warm Assessment and Plan - Assessment and Plan (Free Text) Assessment: 51 years old male with hx of DM II, HTN, Cirrhosis and ESRD on Hemo-dialysis MWF was diagnosed with acute CVA 03/12/17 with left hemiparesis and slurred speech . He was transferred from the [facility] to the rehab Unit at [facility] for rehabilitation and continued management. At present participating well with PT and showing improvement 1. Acute CVA with left facial droop , slurred speech and left side weakness Consult with Dr Murillo Binding Machine Operator appreciated Continue OT/PT Speech therapy continue aspirin and Plavix, and Lipitor 2. ESRD on HD MWF Consult Dr Mancia Nephrology for Dialysis appreciated Continue PhosLo, calcitriol, Procrit 3. DM II controlled Regular Insulin sliding scale according to Accucheck 4. CHF on Lasix Isosorbide Mononitrate 5. Cirrhosis continue Rifaximin,Lactulose, cholestyramine 6. COPD Continue Advair 7. Anemia of chronic kidney disease continue Epo 8. DVT prophylaxis Heparin
[2017-03-29] MEDS: Epoetin Alfa 4000 UNIT/ML Inj IV SCH (16:55)
[2017-03-30] MEDS: Cholestyramine 4 gm/Pkt UD PO SCH ×3 (06:12→21:18)
[2017-03-30] MEDS: Insulin Regular 100 units/ml SC SCH ×4 (06:32→20:59)
[2017-03-30] MEDS: Fluticasone-Salmeterol 250-50mcg Diskus INH SCH ×2 (08:23→20:47)
[2017-03-30] MEDS: Multivitamin With Minerals Tab PO SCH (08:25)
--- NOTE | 2017-03-30 13:16 | PSY.TMCNF ---
Nursing - Vital Signs Vital Signs (Last 8 hours): Vital Signs 03/30/17 03/30/17 03/30/17 06:12 09:00 09:16 Temperature 97.3 F L Pulse Rate 82 82 72 Respiratory 21 Rate Blood Pressure 130/82 130/82 138/70 O2 Sat by Pulse 97 Oximetry Pain: 9 - Precautions: Precautions: Fall Prevention, Aspiration, Cardiac/Pulmonary - Medications/Other Issues Comment: Pt is at moderate nutritional risk. Goals: 1. Pt to consume 75-100% of meals(not met, continue). 2. Blood glucoses to be between 70-180 mg/dl( partially met, continue). 3. K+ WNL(met, continue). Follow up assessment due by 04/01/2017 - Consults Comment: Dr. Murillo, Dr. Mancia - Toileting Toileting: Dependent - Bladder Management Bladder Pattern: Normal Voiding Method: Urinal - Bowel Management Bowel Pattern: Incontinent Bowel Management: Dependent Frequency of Accidents: >5 - Transfers Transfers: Maximal Assistance - ADL's ADL's: Maximal Assistance - Patient/Family Teaching Comments: N/A - Goals/Time Frame Comments: Per multidisciplinary care plan and goals - Provider Provider: Carla GUEVARAN RN CRRN Physical Therapy - Bed Mobility Bed Mobility: Verbal Cues, Minimal Assistance, Moderate Assistance - Transfers Sit to Stand: Minimal Assistance, Moderate Assistance - Ambulation Level of Assistance: Verbal Cues, Minimal Assistance Distance (ft.): 45 Assistive Devices: Rolling Walker - Stair Negotiation Stairs: Level of Assistance: Verbal Cues, Moderate Assistance, Maximum Assistance Number of Stairs: 3 Stairs: Assistive Devices: Left Handrail, Right Handrail - Standing Balance Static Stand: Moderate Assistance Dynamic Stand: Unable to assess/perform - Pain Management Techniques: Heat - Insight/Carryover Insight/Carryover: Good - Patient/Family Education Comment: CVA recovery, hemiplegic compensatory strategies for ADLs and ADL transfers, fall prevention, SROM and protecting LUE - Assessment/Plan Assessment: Pt continues to make progress daily, displaying improvement today with sit><stand, functional transfers, and LUE function. Pt requires continued OT services 5-6x/ week to maximize independence with ADLs and functional mobility. - Goals Timeframe: 2 weeks Goals: -Increase RUE strength: 4 to 4+/5 throughout for improve adls. Pt's caregiver daisy I assisting/cueing pt with adls, transfers/mobility using safety strategies/techniques. -150 feet--supervision/distant supervsiion. -manage B brakes with supervision. Minimal assist and verbal cues. LE Minimal assist and verbal cues--adaptive strategies. UE setup/Supervision--seated. grooming-S - Provider Therapist: Anabel Eisenberg PT, DPT License Number: [id number] Occupational Therapy - Arousal/Attention/Orientation Patient Orientation: Person, Place - ADL/IADL Self Feeding: Set-up Help Grooming: Verbal Cues, Minimal Assistance Bathing-Upper Extremity: Verbal Cues, Moderate Assistance Bathing-Lower Extremity: Maximum Assistance Dressing-Upper Extremity: Moderate Assistance Dressing-Lower Extremity: Maximum Assistance - Sitting Balance Static Sitting: Supervision Dynamic Sitting: Minimal Assistance - Transfers Wheelchair to Bed Transfers: Moderate Assistance Toilet Transfers: Moderate Assistance Tub Transfers: Maximum Assistance - Wheelchair Management Level of Assistance: Maximum Assistance - Upper Extremity Status Right Upper Extremity Comment: WFL Left Upper Extremity Comment: Decreased strength, coordination. /5 - Pain Alleviating Techniques: Heat - Insight/Carryover Insight/Carryover: Good - Patient/Family Education Comment: CVA recovery, hemiplegic compensatory strategies for ADLs and ADL transfers, fall prevention, SROM and protecting LUE - Assessment/Plan Assessment: Pt continues to make progress daily, displaying improvement today with sit><stand, functional transfers, and LUE function. Pt requires continued OT services 5-6x/ week to maximize independence with ADLs and functional mobility. - Goals Timeframe: 2 weeks Goals: -Increase RUE strength: 4 to 4+/5 throughout for improve adls. Pt's caregiver daisy I assisting/cueing pt with adls, transfers/mobility using safety strategies/techniques. -150 feet--supervision/distant supervsiion. -manage B brakes with supervision. Minimal assist and verbal cues. LE Minimal assist and verbal cues--adaptive strategies. UE setup/Supervision--seated. grooming-S - Provider Therapist: Yamila Mojica License Number: [id number] Speech Therapy - Consult Information Patient on Program: Yes Medical Diagnosis: CVA Treatment Diagnosis: mild-moderate dysarthria. mild cognitive-linguistic deficits. mild-moderate oral and suspected mild pharyngeal dysphagia - Assessment Problem Solving Impairment: Mild Memory Impairment: Mild Speech/Articulation Impairment: Moderate Comment: mild-moderate dysarthria Dysphagia/Swallowing Impairment: Moderate Comment: mild-moderate dysphagia - Plan Assessment: Pt continues to make progress daily, displaying improvement today with sit><stand, functional transfers, and LUE function. Pt requires continued OT services 5-6x/ week to maximize independence with ADLs and functional mobility. - Provider Therapist: Davida Hensley License Number: [id number] Recreational Therapy - Participation Participation: Participates in Individual and/or Group Sessions, Monitors His/ Her Own Leisure Time - Attendance Attendance: Daily - Socialization Level of Socialization: Initiates/interacts freely with care givers and peer - Diversional Time Diversional Time: listening to music - Assessment Assessment/Plan: Pt continues to make progress daily, displaying improvement today with sit><stand, functional transfers, and LUE function. Pt requires continued OT services 5-6x/ week to maximize independence with ADLs and functional mobility. - Provider Therapist: Ashley Jin, [employer] #[id number] Nutrition - Current Diet Current Diet/ Supplement/ Feedings: Heart healthy, moderate consistent CHO, renal dialysis, 1200 ml fluid restriction, advanced bite size diet with thin liquids - Appetite Percent Meal Consumed: 75-100% - Comments Comments: N/A - Assessment/Goals/Time Frame Assessment/Goals/Time Frame: Pt is at moderate nutritional risk. Goals: 1. Pt to consume 75-100% of meals(not met, continue). 2. Blood glucoses to be between 70-180 mg/dl(partially met, continue). 3. K+ WNL(met, continue). Follow up assessment due by 04/01/2017 - Provider Provider: Shira Nunez MS, RD Case Management - Discharge Plan Discharge Plan: Home with significant other/family Rehabilitation Plan - Treatment Plan Treatment Plan: Physical Therapy, Occupational Therapy, Speech, Dietary, Patient /Family Education - Discharge Plan Estimated Date of Discharge: 04/13/17 Discharge to: Home
--- NOTE | 2017-03-30 13:29 | CP.PCM.PN ---
Subjective - Date & Time of Evaluation Date of Evaluation: 03/30/17 Time of Evaluation: 13:28 - Subjective Subjective: Patient seen in room feels ok except for left knee pain no swelling but felt it buckle and he has been in pain I will order an x-ray and will likely do an injection pending the results otherwise continues to make progress in therapies which will clearly make him safer for d/c home on 04/13/17 Objective - Vital Signs/Intake and Output Vital Signs (last 24 hours): Temp Pulse Resp BP Pulse Ox 97.3 F L 72 21 138/70 97 03/30/17 09:16 03/30/17 09:16 03/30/17 09:16 03/30/17 09:16 03/30/17 09:16 - Medications Medications: Current Medications Acetaminophen (Tylenol 325mg Tab) 650 mg PO Q6 PRN PRN Reason: pain 1-10 Last Admin: 03/30/17 11:52 Dose: 650 mg Aspirin (Ecotrin) 81 mg PO DAILY [facility] Last Admin: 03/30/17 08:24 Dose: 81 mg Atorvastatin Calcium (Lipitor) 20 mg PO HS [facility] Last Admin: 03/29/17 21:15 Dose: 20 mg Calcium Acetate (Phoslo) 667 mg PO TID [facility] Last Admin: 03/30/17 12:11 Dose: 667 mg Cholestyramine Resin (Questran) 4 gm PO Q8 [facility] Last Admin: 03/30/17 06:12 Dose: 4 gm Clopidogrel Bisulfate (Plavix) 75 mg PO DAILY [facility] Last Admin: 03/30/17 08:25 Dose: 75 mg Epoetin Brian (Procrit) 4,000 unit IV MWF [facility] Last Admin: 03/29/17 16:55 Dose: 4,000 unit Ergocalciferol (Drisdol 50,000 Intl Units Cap) 1 cap PO QWK [facility] Last Admin: 03/18/17 09:05 Dose: 1 cap Famotidine (Pepcid) 20 mg PO 2100 [facility] Last Admin: 03/29/17 21:18 Dose: 20 mg Gabapentin (Neurontin) 300 mg PO DAILY [facility] Last Admin: 03/30/17 08:25 Dose: 300 mg Heparin Sodium (Porcine) (Heparin) 5,000 units SC Q8 [facility] PRN Reason: Protocol Last Admin: 03/30/17 06:12 Dose: 5,000 units Hydralazine HCl (Apresoline) 25 mg PO Q8 [facility] Last Admin: 03/30/17 06:12 Dose: 25 mg Insulin Human Regular (Humulin R) 0 units SC ACHS [facility] PRN Reason: Protocol Last Admin: 03/30/17 12:10 Dose: 1 unit Isosorbide Mononitrate (Imdur) 60 mg PO DAILY [facility] Last Admin: 03/30/17 08:24 Dose: 60 mg Lactic Acid (Lac-Hydrin 12% Lotion (225 G)) 1 applic TOP Q12 [facility] Last Admin: 03/30/17 08:24 Dose: 1 applic Lactulose (Enulose) 20 gm PO DAILY [facility] Last Admin: 03/30/17 08:24 Dose: 20 gm Multivitamins/Minerals (Therapeutic-M Tab) 1 tab PO DAILY [facility] Last Admin: 03/30/17 08:25 Dose: 1 tab Rifaximin (Xifaxan) 550 mg PO BID [facility] PRN Reason: Protocol Last Admin: 03/30/17 08:26 Dose: 550 mg Fluticasone/Salmeterol (Advair Diskus 250/50) 1 puff INH Q12 [facility] Last Admin: 03/30/17 08:23 Dose: 1 puff - Labs Labs: 03/20/17 12:30 03/20/17 13:10 PT 17.3 Seconds (9.8-13.1) H 03/18/17 05:20 INR 1.5 (0.9-1.2) H 03/18/17 05:20 APTT 39.1 Seconds (25.6-37.1) H 03/18/17 05:20
[2017-03-31] MEDS: Cholestyramine 4 gm/Pkt UD PO SCH ×3 (05:38→21:20)
[2017-03-31] MEDS: Insulin Regular 100 units/ml SC SCH ×4 (07:06→21:21)
[2017-03-31] MEDS: Fluticasone-Salmeterol 250-50mcg Diskus INH SCH ×2 (08:43→21:19)
[2017-03-31] MEDS: Multivitamin With Minerals Tab PO SCH (08:44)
--- NOTE | 2017-03-31 12:32 | RAD ---
PROCEDURE: Left Knee Radiographs. HISTORY: Pain. COMPARISON: None. FINDINGS: BONES: Normal. No fracture. JOINTS: Normal. No osteoarthritis. JOINT EFFUSION: None. OTHER FINDINGS: None. IMPRESSION: No acute findings related to/accounting for the clinical presentation.
--- NOTE | 2017-03-31 14:56 | CP.PCM.PN ---
Subjective - Date & Time of Evaluation Date of Evaluation: 03/31/17 Time of Evaluation: 14:54 - Subjective Subjective: Patient sitting up conscious alert. No chest pain no shortness of breath Patient appeared to be comfortable. Objective - Vital Signs/Intake and Output Vital Signs (last 24 hours): Temp Pulse Resp BP Pulse Ox 98.4 F 82 19 131/69 95 03/31/17 08:26 03/31/17 08:26 03/31/17 08:26 03/31/17 13:09 03/31/17 08:26 - Medications Medications: Current Medications Acetaminophen (Tylenol 325mg Tab) 650 mg PO Q6 PRN PRN Reason: pain 1-10 Last Admin: 03/30/17 11:52 Dose: 650 mg Aspirin (Ecotrin) 81 mg PO DAILY [facility] Last Admin: 03/31/17 08:44 Dose: 81 mg Atorvastatin Calcium (Lipitor) 20 mg PO HS [facility] Last Admin: 03/30/17 21:01 Dose: 20 mg Calcium Acetate (Phoslo) 667 mg PO TID [facility] Last Admin: 03/31/17 12:14 Dose: 667 mg Cholestyramine Resin (Questran) 4 gm PO Q8 [facility] Last Admin: 03/31/17 13:09 Dose: 4 gm Clopidogrel Bisulfate (Plavix) 75 mg PO DAILY [facility] Last Admin: 03/31/17 08:43 Dose: 75 mg Epoetin Brian (Procrit) 4,000 unit IV MWF [facility] Last Admin: 03/29/17 16:55 Dose: 4,000 unit Ergocalciferol (Drisdol 50,000 Intl Units Cap) 1 cap PO QWK [facility] Last Admin: 03/18/17 09:05 Dose: 1 cap Famotidine (Pepcid) 20 mg PO 2100 [facility] Last Admin: 03/30/17 20:48 Dose: 20 mg Gabapentin (Neurontin) 300 mg PO DAILY [facility] Last Admin: 03/31/17 08:43 Dose: 300 mg Heparin Sodium (Porcine) (Heparin) 5,000 units SC Q8 [facility] PRN Reason: Protocol Last Admin: 03/31/17 13:09 Dose: 5,000 units Hydralazine HCl (Apresoline) 25 mg PO Q8 [facility] Last Admin: 03/31/17 13:09 Dose: 25 mg Insulin Human Regular (Humulin R) 0 units SC ACHS [facility] PRN Reason: Protocol Last Admin: 03/31/17 12:14 Dose: 3 unit Isosorbide Mononitrate (Imdur) 60 mg PO DAILY [facility] Last Admin: 03/31/17 08:43 Dose: 60 mg Lactic Acid (Lac-Hydrin 12% Lotion (225 G)) 1 applic TOP Q12 [facility] Last Admin: 03/31/17 08:43 Dose: 1 applic Lactulose (Enulose) 20 gm PO DAILY [facility] Last Admin: 03/31/17 08:45 Dose: Not Given Multivitamins/Minerals (Therapeutic-M Tab) 1 tab PO DAILY [facility] Last Admin: 03/31/17 08:44 Dose: 1 tab Rifaximin (Xifaxan) 550 mg PO BID [facility] PRN Reason: Protocol Last Admin: 03/31/17 08:44 Dose: 550 mg Fluticasone/Salmeterol (Advair Diskus 250/50) 1 puff INH Q12 [facility] Last Admin: 03/31/17 08:43 Dose: 1 puff - Labs Labs: 03/20/17 12:30 03/20/17 13:10 PT 17.3 Seconds (9.8-13.1) H 03/18/17 05:20 INR 1.5 (0.9-1.2) H 03/18/17 05:20 APTT 39.1 Seconds (25.6-37.1) H 03/18/17 05:20 - Constitutional Appears: No Acute Distress - ENT Exam ENT Exam: Mucous Membranes Moist - Respiratory Exam Respiratory Exam: NORMAL BREATHING PATTERN. absent: Chest Wall Tenderness - Cardiovascular Exam Cardiovascular Exam: REGULAR RHYTHM. absent: JVD, Rubs - GI/Abdominal Exam GI & Abdominal Exam: Soft, Normal Bowel Sounds - Extremities Exam Extremities Exam: absent: Calf Tenderness - Back Exam Back Exam: absent: CVA tenderness (L), CVA tenderness (R) - Neurological Exam Neurological Exam: Alert Assessment and Plan (1) CKD (chronic kidney disease) requiring chronic dialysis Assessment & Plan: End stage renal disease patient to receive dialysis in the next half an hour. I spoke to the dialysis nurse Discuss plan of treatment. Order was given Patient tolerating rehabilitation and physiotherapy. 24 hours and unfortunately they did not to creatinine clearance as I ordered need to cut the dialysis to twice a week once his fluid volume improving. Anemia stable And the rest of the electrolyte the reviewed and stable. Status: Acute (2) CVA (cerebral vascular accident) Status: Acute
--- NOTE | 2017-03-31 16:10 | CP.PCM.PN ---
Subjective - Date & Time of Evaluation Date of Evaluation: 03/31/17 Time of Evaluation: 14:30 - Subjective Subjective: Patient seen and examined bedside. Feeling well. Still with left facial droop and left side weakness Hemodynamically stable, afebrile. Participating with PT For HD today Objective - Vital Signs/Intake and Output Vital Signs (last 24 hours): Temp Pulse Resp BP Pulse Ox 98.4 F 82 19 131/69 95 03/31/17 08:26 03/31/17 08:26 03/31/17 08:26 03/31/17 13:09 03/31/17 08:26 - Medications Medications: Current Medications Acetaminophen (Tylenol 325mg Tab) 650 mg PO Q6 PRN PRN Reason: pain 1-10 Last Admin: 03/30/17 11:52 Dose: 650 mg Aspirin (Ecotrin) 81 mg PO DAILY [facility] Last Admin: 03/31/17 08:44 Dose: 81 mg Atorvastatin Calcium (Lipitor) 20 mg PO HS [facility] Last Admin: 03/30/17 21:01 Dose: 20 mg Calcium Acetate (Phoslo) 667 mg PO TID [facility] Last Admin: 03/31/17 12:14 Dose: 667 mg Cholestyramine Resin (Questran) 4 gm PO Q8 [facility] Last Admin: 03/31/17 13:09 Dose: 4 gm Clopidogrel Bisulfate (Plavix) 75 mg PO DAILY [facility] Last Admin: 03/31/17 08:43 Dose: 75 mg Epoetin Brian (Procrit) 4,000 unit IV MWF [facility] Last Admin: 03/29/17 16:55 Dose: 4,000 unit Ergocalciferol (Drisdol 50,000 Intl Units Cap) 1 cap PO QWK [facility] Last Admin: 03/18/17 09:05 Dose: 1 cap Famotidine (Pepcid) 20 mg PO 2100 [facility] Last Admin: 03/30/17 20:48 Dose: 20 mg Gabapentin (Neurontin) 300 mg PO DAILY [facility] Last Admin: 03/31/17 08:43 Dose: 300 mg Heparin Sodium (Porcine) (Heparin) 5,000 units SC Q8 [facility] PRN Reason: Protocol Last Admin: 03/31/17 13:09 Dose: 5,000 units Hydralazine HCl (Apresoline) 25 mg PO Q8 [facility] Last Admin: 03/31/17 13:09 Dose: 25 mg Insulin Human Regular (Humulin R) 0 units SC ACHS [facility] PRN Reason: Protocol Last Admin: 03/31/17 12:14 Dose: 3 unit Isosorbide Mononitrate (Imdur) 60 mg PO DAILY [facility] Last Admin: 03/31/17 08:43 Dose: 60 mg Lactic Acid (Lac-Hydrin 12% Lotion (225 G)) 1 applic TOP Q12 [facility] Last Admin: 03/31/17 08:43 Dose: 1 applic Lactulose (Enulose) 20 gm PO DAILY [facility] Last Admin: 03/31/17 08:45 Dose: Not Given Multivitamins/Minerals (Therapeutic-M Tab) 1 tab PO DAILY [facility] Last Admin: 03/31/17 08:44 Dose: 1 tab Rifaximin (Xifaxan) 550 mg PO BID [facility] PRN Reason: Protocol Last Admin: 03/31/17 08:44 Dose: 550 mg Fluticasone/Salmeterol (Advair Diskus 250/50) 1 puff INH Q12 [facility] Last Admin: 03/31/17 08:43 Dose: 1 puff - Labs Labs: 03/20/17 12:30 03/20/17 13:10 PT 17.3 Seconds (9.8-13.1) H 03/18/17 05:20 INR 1.5 (0.9-1.2) H 03/18/17 05:20 APTT 39.1 Seconds (25.6-37.1) H 03/18/17 05:20 - Constitutional Appears: Non-toxic, No Acute Distress - Head Exam Head Exam: ATRAUMATIC, NORMAL INSPECTION, NORMOCEPHALIC - Eye Exam Eye Exam: EOMI, Normal appearance, PERRL Pupil Exam: NORMAL ACCOMODATION - ENT Exam ENT Exam: Mucous Membranes Moist, Normal Exam - Neck Exam Neck Exam: Full ROM, Normal Inspection - Respiratory Exam Respiratory Exam: Clear to Ausculation Bilateral, NORMAL BREATHING PATTERN. absent: Rales, Rhonchi, Wheezes - Cardiovascular Exam Cardiovascular Exam: REGULAR RHYTHM, RRR, +S1, +S2. absent: JVD - GI/Abdominal Exam GI & Abdominal Exam: Soft, Normal Bowel Sounds. absent: Distended, Guarding, Tenderness, Rebound - Rectal Exam Rectal Exam: Deferred - Extremities Exam Extremities Exam: Normal Inspection. absent: Calf Tenderness, Pedal Edema - Back Exam Back Exam: NORMAL INSPECTION - Neurological Exam Neurological Exam: Alert, Awake Additional comments: left facial droop Left side weakness - Psychiatric Exam Psychiatric exam: Normal Affect - Skin Skin Exam: Dry, Intact, Normal Color, Warm Assessment and Plan - Assessment and Plan (Free Text) Assessment: 51 years old male with hx of DM II, HTN, Cirrhosis and ESRD on Hemo-dialysis MWF was diagnosed with acute CVA 03/12/17 with left hemiparesis and slurred speech . He was transferred from the [facility] to the rehab Unit at [facility] for rehabilitation and continued management. At present participating well with PT and showing improvement 1. Acute CVA with left facial droop , slurred speech and left side weakness Consult with Dr Murillo Software Programmer appreciated Continue OT/PT Speech therapy continue aspirin and Plavix, and Lipitor 2. ESRD on HD MWF Consult Dr Mancia Nephrology for Dialysis appreciated Continue PhosLo, calcitriol, Procrit For HD today 3. DM II controlled Regular Insulin sliding scale according to Accucheck 4. CHF on Lasix Isosorbide Mononitrate 5. Cirrhosis continue Rifaximin,Lactulose, cholestyramine 6. COPD Continue Advair 7. Anemia of chronic kidney disease continue Epo 8. DVT prophylaxis Heparin
[2017-03-31] MEDS: Epoetin Alfa 4000 UNIT/ML Inj IV SCH (19:36)
[2017-04-01] MEDS: Cholestyramine 4 gm/Pkt UD PO SCH ×3 (06:15→21:45)
[2017-04-01] MEDS: Insulin Regular 100 units/ml SC SCH ×4 (06:30→21:45)
[2017-04-01] MEDS: Multivitamin With Minerals Tab PO SCH (09:49)
[2017-04-01] MEDS: Fluticasone-Salmeterol 250-50mcg Diskus INH SCH ×2 (09:49→21:43)
--- NOTE | 2017-04-01 17:03 | CP.PCM.PN ---
Subjective - Date & Time of Evaluation Date of Evaluation: 04/01/17 Time of Evaluation: 16:56 - Subjective Subjective: patient seen adn examned at bedside for CVA, doing well with PT, improving. HD stable, no acute distress. Objective - Vital Signs/Intake and Output Vital Signs (last 24 hours): Temp Pulse Resp BP Pulse Ox 98 F 80 22 123/89 97 04/01/17 08:23 04/01/17 13:28 04/01/17 08:23 04/01/17 13:28 04/01/17 08:23 Intake and Output: Physical exam: Constitutional- cooperative, awake, alert. Head- NCAT, PERRL Eye- PERRL, normal accommodation ENT- normal exam, MMM. Neck- normal inspection, supple, no JVD Respiratory- CTAB, no wheezes rales rhonchi Cardiovascular- RRR, +S1, +S2 no MRG GI/Abdominal- normal bowel sounds, soft, no mass, no hsm Skin- warm, dry Extremities Exam- normal capillary refill, normal inspection Neurological Exam- alert, improving Psych- normal mood, normal affect - Medications Medications: Current Medications Acetaminophen (Tylenol 325mg Tab) 650 mg PO Q6 PRN PRN Reason: pain 1-10 Last Admin: 03/30/17 11:52 Dose: 650 mg Aspirin (Ecotrin) 81 mg PO DAILY [facility] Last Admin: 04/01/17 09:49 Dose: 81 mg Atorvastatin Calcium (Lipitor) 20 mg PO HS [facility] Last Admin: 03/31/17 21:21 Dose: 20 mg Calcium Acetate (Phoslo) 667 mg PO TID [facility] Last Admin: 04/01/17 13:28 Dose: 667 mg Cholestyramine Resin (Questran) 4 gm PO Q8 [facility] Last Admin: 04/01/17 13:28 Dose: 4 gm Clopidogrel Bisulfate (Plavix) 75 mg PO DAILY [facility] Last Admin: 04/01/17 09:49 Dose: 75 mg Epoetin Brian (Procrit) 4,000 unit IV MWF [facility] Last Admin: 03/31/17 19:36 Dose: 4,000 unit Ergocalciferol (Drisdol 50,000 Intl Units Cap) 1 cap PO QWK [facility] Last Admin: 03/18/17 09:05 Dose: 1 cap Famotidine (Pepcid) 20 mg PO 2100 [facility] Last Admin: 03/31/17 21:21 Dose: 20 mg Gabapentin (Neurontin) 300 mg PO DAILY [facility] Last Admin: 04/01/17 09:49 Dose: 300 mg Heparin Sodium (Porcine) (Heparin) 5,000 units SC Q8 [facility] PRN Reason: Protocol Last Admin: 04/01/17 13:28 Dose: 5,000 units Hydralazine HCl (Apresoline) 25 mg PO Q8 [facility] Last Admin: 04/01/17 13:28 Dose: 25 mg Insulin Human Regular (Humulin R) 0 units SC ACHS [facility] PRN Reason: Protocol Last Admin: 04/01/17 11:58 Dose: Not Given Isosorbide Mononitrate (Imdur) 60 mg PO DAILY [facility] Last Admin: 04/01/17 09:49 Dose: 60 mg Lactic Acid (Lac-Hydrin 12% Lotion (225 G)) 1 applic TOP Q12 [facility] Last Admin: 04/01/17 09:49 Dose: 1 applic Lactulose (Enulose) 20 gm PO DAILY [facility] Last Admin: 04/01/17 09:22 Dose: Not Given Multivitamins/Minerals (Therapeutic-M Tab) 1 tab PO DAILY [facility] Last Admin: 04/01/17 09:49 Dose: 1 tab Rifaximin (Xifaxan) 550 mg PO BID [facility] PRN Reason: Protocol Last Admin: 04/01/17 09:49 Dose: 550 mg Fluticasone/Salmeterol (Advair Diskus 250/50) 1 puff INH Q12 [facility] Last Admin: 04/01/17 09:49 Dose: 1 puff - Labs Labs: 03/20/17 12:30 03/20/17 13:10 PT 17.3 Seconds (9.8-13.1) H 03/18/17 05:20 INR 1.5 (0.9-1.2) H 03/18/17 05:20 APTT 39.1 Seconds (25.6-37.1) H 03/18/17 05:20 Assessment and Plan - Assessment and Plan (Free Text) Plan: 51 years old male with hx of DM II, HTN, Cirrhosis and ESRD on Hemo-dialysis MWF was diagnosed with acute CVA 03/12/17 with left hemiparesis and slurred speech . He was transferred from the [facility] to the rehab Unit at [facility] for rehabilitation and continued management. At present participating well with PT and showing improvement 1. Acute CVA with left facial droop , slurred speech and left side weakness Consult with Dr Murillo Block Trimmer appreciated Continue OT/PT Speech therapy continue aspirin and Plavix, and Lipitor 2. ESRD on HD MWF Consult Dr Mancia Nephrology for Dialysis appreciated Continue PhosLo, calcitriol, Procrit For HD today 3. DM II controlled Regular Insulin sliding scale according to Accucheck 4. CHF on Lasix Isosorbide Mononitrate 5. Cirrhosis continue Rifaximin,Lactulose, cholestyramine 6. COPD Continue Advair 7. Anemia of chronic kidney disease continue Epo 8. DVT prophylaxis Heparin
[2017-04-02] MEDS: Cholestyramine 4 gm/Pkt UD PO SCH ×3 (06:25→22:00)
[2017-04-02] MEDS: Insulin Regular 100 units/ml SC SCH ×4 (06:37→21:06)
[2017-04-02] MEDS: Fluticasone-Salmeterol 250-50mcg Diskus INH SCH ×2 (07:59→20:52)
[2017-04-02] MEDS: Multivitamin With Minerals Tab PO SCH (08:00)
--- NOTE | 2017-04-02 08:30 | PN ---
NEUROLOGY PROGRESS NOTE DATE: SUBJECTIVE: The patient is lying on the bed, in no acute distress. Denies having any headache or dizziness. PHYSICAL EXAMINATION: VITAL SIGNS: His blood pressure 123/89, heart rate 80 per minute, breathing at the rate of 16 per minute, temperature is 98 degrees Fahrenheit. HEENT: Head is normocephalic and atraumatic. NECK: Neck is supple. There are no carotid bruits. LUNGS: Lungs are clear. CARDIOVASCULAR: Exam, S1 and S2 are audible. No murmurs. ABDOMEN: Abdomen is soft and nontender. Bowel sounds are present. NEUROLOGY EXAMINATION: Mental Status; the patient is awake and alert. He follows all simple commands. He has mild dysarthria. Naming and repetition is normal. Cranial nerve examination; Pupils are 2 mm, minimally reactive to light. Extraocular movements are intact. There is decreased nasolabial fold on the left side. Palate is upgoing bilaterally and tongue is midline. MOTOR EXAMINATION: Tone is normal. There is left-sided hemiparesis with power in the left upper extremity that is -4/5 and power in the left lower extremity is also 4/5. The power in the right side is 5/5. IMPRESSION: 1. Cerebrovascular accident with right basal ganglia infarct causing left hemiparesis. 2. End-stage renal disease, on hemodialysis. RECOMMENDATION: 1. The patient to be continued on aspirin and Plavix. 2. The patient also to be continued on statin. 3. The patient to have speech therapy. 4. The patient's blood pressure is well under control. 5. The patient is tolerating dual antiplatelet therapy. 6. Please continue supportive care and other treatment. Thank you for the opportunity to participate in the care of this patient. Tom Eller MD
--- NOTE | 2017-04-02 13:06 | CP.PCM.PN ---
Subjective - Date & Time of Evaluation Date of Evaluation: 04/02/17 Time of Evaluation: 13:03 - Subjective Subjective: Patient sitting up in the chair. Receiving physiotherapy. Patient awake and conscious. And he has a good appetite. Physical exam Chest no rales. Heart no rubs. Abdomen he has some ascites. Extremity no edema. Impression and plan 51 years old male with hx of DM II, HTN, Cirrhosis and ESRD on Hemo-dialysis MWF was diagnosed with acute CVA 03/12/17 with left hemiparesis and slurred speech . He was transferred from the [facility] to the rehab Unit at [facility] for rehabilitation and continued management. At present participating well with PT and showing improvement Patient to receive hemodialysis shortly as scheduled order in place. Sodium bath 138 Potassium bath 2 mEq Bicarbonate bath 34 mEq Ultrafiltration about 2500 mL as tolerated. Continue monitoring. Objective - Vital Signs/Intake and Output Vital Signs (last 24 hours): Temp Pulse Resp BP Pulse Ox 97.4 F L 79 20 121/77 97 04/02/17 08:16 04/02/17 08:16 04/02/17 08:16 04/02/17 08:16 04/02/17 08:16 - Medications Medications: Current Medications Acetaminophen (Tylenol 325mg Tab) 650 mg PO Q6 PRN PRN Reason: pain 1-10 Last Admin: 03/30/17 11:52 Dose: 650 mg Aspirin (Ecotrin) 81 mg PO DAILY [facility] Last Admin: 04/02/17 08:00 Dose: 81 mg Atorvastatin Calcium (Lipitor) 20 mg PO HS [facility] Last Admin: 04/01/17 21:43 Dose: 20 mg Calcium Acetate (Phoslo) 667 mg PO TID [facility] Last Admin: 04/02/17 07:59 Dose: 667 mg Cholestyramine Resin (Questran) 4 gm PO Q8 [facility] Last Admin: 04/02/17 06:25 Dose: 4 gm Clopidogrel Bisulfate (Plavix) 75 mg PO DAILY [facility] Last Admin: 04/02/17 08:00 Dose: 75 mg Epoetin Brian (Procrit) 4,000 unit IV MWF [facility] Last Admin: 03/31/17 19:36 Dose: 4,000 unit Ergocalciferol (Drisdol 50,000 Intl Units Cap) 1 cap PO QWK [facility] Last Admin: 03/18/17 09:05 Dose: 1 cap Famotidine (Pepcid) 20 mg PO 2100 [facility] Last Admin: 04/01/17 21:43 Dose: 20 mg Gabapentin (Neurontin) 300 mg PO DAILY [facility] Last Admin: 04/02/17 07:59 Dose: 300 mg Heparin Sodium (Porcine) (Heparin) 5,000 units SC Q8 [facility] PRN Reason: Protocol Last Admin: 04/02/17 06:24 Dose: 5,000 units Hydralazine HCl (Apresoline) 25 mg PO Q8 [facility] Last Admin: 04/02/17 06:23 Dose: 25 mg Insulin Human Regular (Humulin R) 0 units SC ACHS [facility] PRN Reason: Protocol Last Admin: 04/02/17 12:26 Dose: 1 unit Isosorbide Mononitrate (Imdur) 60 mg PO DAILY [facility] Last Admin: 04/02/17 08:00 Dose: 60 mg Lactic Acid (Lac-Hydrin 12% Lotion (225 G)) 1 applic TOP Q12 [facility] Last Admin: 04/02/17 07:59 Dose: 1 applic Lactulose (Enulose) 20 gm PO DAILY [facility] Last Admin: 04/02/17 08:00 Dose: Not Given Multivitamins/Minerals (Therapeutic-M Tab) 1 tab PO DAILY [facility] Last Admin: 04/02/17 08:00 Dose: 1 tab Rifaximin (Xifaxan) 550 mg PO BID [facility] PRN Reason: Protocol Last Admin: 04/02/17 07:59 Dose: 550 mg Fluticasone/Salmeterol (Advair Diskus 250/50) 1 puff INH Q12 [facility] Last Admin: 04/02/17 07:59 Dose: 1 puff - Labs Labs: 03/20/17 12:30 03/20/17 13:10 PT 17.3 Seconds (9.8-13.1) H 03/18/17 05:20 INR 1.5 (0.9-1.2) H 03/18/17 05:20 APTT 39.1 Seconds (25.6-37.1) H 03/18/17 05:20 Assessment and Plan (1) CKD (chronic kidney disease) requiring chronic dialysis Status: Acute (2) CVA (cerebral vascular accident) Status: Acute
--- NOTE | 2017-04-02 15:12 | CP.PCM.PN ---
Subjective - Date & Time of Evaluation Date of Evaluation: 04/02/17 Time of Evaluation: 15:11 - Subjective Subjective: Patient seen in the room. doing ok and continues to make progress when not fatigued does much better no pain continue current care Objective - Vital Signs/Intake and Output Vital Signs (last 24 hours): Temp Pulse Resp BP Pulse Ox 97.4 F L 75 20 135/89 97 04/02/17 08:16 04/02/17 13:57 04/02/17 08:16 04/02/17 13:57 04/02/17 08:16 - Medications Medications: Current Medications Acetaminophen (Tylenol 325mg Tab) 650 mg PO Q6 PRN PRN Reason: pain 1-10 Last Admin: 03/30/17 11:52 Dose: 650 mg Aspirin (Ecotrin) 81 mg PO DAILY [facility] Last Admin: 04/02/17 08:00 Dose: 81 mg Atorvastatin Calcium (Lipitor) 20 mg PO HS [facility] Last Admin: 04/01/17 21:43 Dose: 20 mg Calcium Acetate (Phoslo) 667 mg PO TID [facility] Last Admin: 04/02/17 13:55 Dose: 667 mg Cholestyramine Resin (Questran) 4 gm PO Q8 [facility] Last Admin: 04/02/17 13:57 Dose: 4 gm Clopidogrel Bisulfate (Plavix) 75 mg PO DAILY [facility] Last Admin: 04/02/17 08:00 Dose: 75 mg Epoetin Brian (Procrit) 4,000 unit IV MWF [facility] Last Admin: 03/31/17 19:36 Dose: 4,000 unit Ergocalciferol (Drisdol 50,000 Intl Units Cap) 1 cap PO QWK [facility] Last Admin: 03/18/17 09:05 Dose: 1 cap Famotidine (Pepcid) 20 mg PO 2100 [facility] Last Admin: 04/01/17 21:43 Dose: 20 mg Gabapentin (Neurontin) 300 mg PO DAILY [facility] Last Admin: 04/02/17 07:59 Dose: 300 mg Heparin Sodium (Porcine) (Heparin) 5,000 units SC Q8 [facility] PRN Reason: Protocol Last Admin: 04/02/17 13:56 Dose: 5,000 units Hydralazine HCl (Apresoline) 25 mg PO Q8 [facility] Last Admin: 04/02/17 13:57 Dose: 25 mg Insulin Human Regular (Humulin R) 0 units SC ACHS [facility] PRN Reason: Protocol Last Admin: 04/02/17 12:26 Dose: 1 unit Isosorbide Mononitrate (Imdur) 60 mg PO DAILY [facility] Last Admin: 04/02/17 08:00 Dose: 60 mg Lactic Acid (Lac-Hydrin 12% Lotion (225 G)) 1 applic TOP Q12 [facility] Last Admin: 04/02/17 07:59 Dose: 1 applic Lactulose (Enulose) 20 gm PO DAILY [facility] Last Admin: 04/02/17 08:00 Dose: Not Given Multivitamins/Minerals (Therapeutic-M Tab) 1 tab PO DAILY [facility] Last Admin: 04/02/17 08:00 Dose: 1 tab Rifaximin (Xifaxan) 550 mg PO BID [facility] PRN Reason: Protocol Last Admin: 04/02/17 07:59 Dose: 550 mg Fluticasone/Salmeterol (Advair Diskus 250/50) 1 puff INH Q12 [facility] Last Admin: 04/02/17 07:59 Dose: 1 puff - Labs Labs: 03/20/17 12:30 03/20/17 13:10 PT 17.3 Seconds (9.8-13.1) H 03/18/17 05:20 INR 1.5 (0.9-1.2) H 03/18/17 05:20 APTT 39.1 Seconds (25.6-37.1) H 03/18/17 05:20
[2017-04-02] MEDS: Epoetin Alfa 4000 UNIT/ML Inj IV SCH (17:13)
[2017-04-03] MEDS: Insulin Regular 100 units/ml SC SCH ×4 (06:32→21:25)
[2017-04-03] MEDS: Cholestyramine 4 gm/Pkt UD PO SCH ×3 (06:32→21:31)
[2017-04-03] MEDS: Fluticasone-Salmeterol 250-50mcg Diskus INH SCH ×2 (08:11→20:29)
[2017-04-03] MEDS: Multivitamin With Minerals Tab PO SCH (08:16)
--- NOTE | 2017-04-03 15:21 | PN ---
NEUROLOGY PROGRESS NOTE DATE: SUBJECTIVE: The patient is sitting on the chair, in no acute distress. Denies having any headache or dizziness. PHYSICAL EXAMINATION: VITAL SIGNS: His blood pressure is 134/84, heart rate is 79 per minute, breathing at the rate of 16 per minute, temperature 96.3 degrees Fahrenheit. HEENT: Head is normocephalic, atraumatic. NECK: Supple. There are no carotid bruits. LUNGS: Clear. CARDIOVASCULAR SYSTEM: S1 and S2 are audible. No murmurs. ABDOMEN: Soft, nontender. Bowel sounds present. NEUROLOGY: Mental status: The patient is awake, alert, oriented to time, place and person. Speech is dysarthric. Naming and repetition normal. Cranial nerve examination: Pupils 2 mm, minimally reactive to light. Extraocular movements are intact. There is decreased nasolabial fold on the left side. Motor examination: Tone is normal. Power, there is left-sided hemiparesis with power of 4 to 5/5. Plantars downgoing bilaterally. [id number] shows no dysmetria. IMPRESSION: 1. Cerebrovascular accident with right basal ganglia infarct causing left hemiparesis and dysarthria. 2. End-stage renal disease, on hemodialysis. RECOMMENDATION: 1. The patient continues to show improvement in the left-sided weakness. 2. The patient to be continued on aspirin and Plavix. 3. The patient also to be continued on statin. 4. The patient to have physical and speech therapy. 5. The patient's blood pressure is better controlled. 6. Please continue supportive care and other treatment. Thank you for the opportunity to participate in the care of this patient. Tom Eller MD
[2017-04-04] MEDS: Cholestyramine 4 gm/Pkt UD PO SCH ×3 (06:07→21:04)
[2017-04-04] MEDS: Insulin Regular 100 units/ml SC SCH ×4 (06:53→21:04)
[2017-04-04] MEDS: Multivitamin With Minerals Tab PO SCH (09:05)
[2017-04-04] MEDS: Fluticasone-Salmeterol 250-50mcg Diskus INH SCH ×2 (09:05→20:41)
[2017-04-04] MEDS ORDERED: DiphenhydrAMINE 12.5 mg/5 ml LIQ UD (5 ml) PO PRN (10:29)
[2017-04-04 12:27] LABS: HEMATOCRIT 30.3 % (35.0-51.0); MEAN CELL VOLUME 91.4 fl (80.0-94.0); MEAN CORPUSCULAR HEMOGLOBIN 30.3 pg (27.0-31.0); MEAN CORPUSCULAR HGB CONC 33.1 g/dL (33.0-37.0); RED CELL DISTRIBUTION WIDTH 15.3 % (11.5-14.5); WHITE BLOOD COUNT 5.2 K/uL (4.8-10.8)
[2017-04-04 12:32] LABS: CALCIUM 8.8 mg/dL (8.4-10.2); MAGNESIUM 2.6 MG/DL (1.6-2.3); PHOSPHOROUS 6.1 mg/dl (2.5-4.5)
[2017-04-04 12:35] LABS: POTASSIUM 6.1 MMOL/L (3.6-5.0)
[2017-04-04] MEDS ORDERED: Sod Polystyrene Sulf 15 gm/60 ml Susp PO ONE (13:10)
[2017-04-05] MEDS: Cholestyramine 4 gm/Pkt UD PO SCH ×3 (06:43→21:16)
[2017-04-05] MEDS: Insulin Regular 100 units/ml SC SCH ×4 (06:44→21:30)
[2017-04-05] MEDS: Fluticasone-Salmeterol 250-50mcg Diskus INH SCH ×2 (09:10→21:44)
[2017-04-05] MEDS: Multivitamin With Minerals Tab PO SCH (09:11)
[2017-04-05] MEDS: Ergocalciferol 50,000 Intl Units Cap PO SCH (09:12)
--- NOTE | 2017-04-05 12:33 | CP.PCM.PN ---
Subjective - Date & Time of Evaluation Date of Evaluation: 04/05/17 Time of Evaluation: 10:00 - Subjective Subjective: Patient seen and examined at bedside receiving physiotherapy. He has no complaints today. He states he is feeling stronger. No events as per nursing staff. Objective - Vital Signs/Intake and Output Vital Signs (last 24 hours): Temp Pulse Resp BP Pulse Ox 97.5 F L 80 19 132/77 97 04/05/17 08:43 04/05/17 08:43 04/05/17 08:43 04/05/17 08:43 04/05/17 08:43 - Medications Medications: Current Medications Acetaminophen (Tylenol 325mg Tab) 650 mg PO Q6 PRN PRN Reason: pain 1-10 Last Admin: 03/30/17 11:52 Dose: 650 mg Aspirin (Ecotrin) 81 mg PO DAILY [facility] Last Admin: 04/05/17 09:11 Dose: 81 mg Atorvastatin Calcium (Lipitor) 20 mg PO HS [facility] Last Admin: 04/04/17 21:03 Dose: 20 mg Calcium Acetate (Phoslo) 667 mg PO TID [facility] Last Admin: 04/05/17 09:13 Dose: 667 mg Cholestyramine Resin (Questran) 4 gm PO Q8 [facility] Last Admin: 04/05/17 06:43 Dose: 4 gm Clopidogrel Bisulfate (Plavix) 75 mg PO DAILY [facility] Last Admin: 04/05/17 09:12 Dose: 75 mg Diphenhydramine HCl (Benadryl) 12.5 mg PO Q6 PRN PRN Reason: Itching / Pruritus Epoetin Brian (Procrit) 4,000 unit IV MWF [facility] Last Admin: 04/02/17 17:13 Dose: 4,000 unit Ergocalciferol (Drisdol 50,000 Intl Units Cap) 1 cap PO MON [facility] Famotidine (Pepcid) 20 mg PO 2100 [facility] Last Admin: 04/04/17 20:42 Dose: 20 mg Gabapentin (Neurontin) 300 mg PO DAILY [facility] Last Admin: 04/05/17 09:13 Dose: 300 mg Heparin Sodium (Porcine) (Heparin) 5,000 units SC Q12 [facility] PRN Reason: Protocol Last Admin: 04/05/17 09:11 Dose: 5,000 units Hydralazine HCl (Apresoline) 25 mg PO Q8 [facility] Last Admin: 04/05/17 06:44 Dose: 25 mg Insulin Human Regular (Humulin R) 0 units SC ACHS [facility] PRN Reason: Protocol Last Admin: 04/05/17 06:44 Dose: Not Given Isosorbide Mononitrate (Imdur) 60 mg PO DAILY [facility] Last Admin: 04/05/17 09:12 Dose: 60 mg Lactic Acid (Lac-Hydrin 12% Lotion (225 G)) 1 applic TOP Q12 [facility] Last Admin: 04/05/17 09:10 Dose: 1 applic Lactulose (Enulose) 20 gm PO DAILY [facility] Last Admin: 04/05/17 09:14 Dose: Not Given Multivitamins/Minerals (Therapeutic-M Tab) 1 tab PO DAILY [facility] Last Admin: 04/05/17 09:11 Dose: 1 tab Rifaximin (Xifaxan) 550 mg PO BID [facility] PRN Reason: Protocol Last Admin: 04/05/17 09:11 Dose: 550 mg Fluticasone/Salmeterol (Advair Diskus 250/50) 1 puff INH Q12 [facility] Last Admin: 04/05/17 09:10 Dose: 1 puff - Labs Labs: 04/04/17 12:00 04/04/17 12:00 PT 17.3 Seconds (9.8-13.1) H 03/18/17 05:20 INR 1.5 (0.9-1.2) H 03/18/17 05:20 APTT 39.1 Seconds (25.6-37.1) H 03/18/17 05:20 - Additional Findings Additional findings: Physical exam: Constitutional- cooperative, awake, alert. Head- NCAT, PERRL Eye- PERRL, normal accommodation ENT- normal exam, MMM. Neck- normal inspection, supple, no JVD Respiratory- CTAB, no wheezes rales rhonchi Cardiovascular- RRR, +S1, +S2 no MRG GI/Abdominal- normal bowel sounds, soft, no mass, no hsm Skin- warm, dry Extremities Exam- normal capillary refill, normal inspection Neurological Exam- alert, improving Psych- normal mood, normal affect Assessment and Plan - Assessment and Plan (Free Text) Plan: Plan: 51 years old male with hx of DM II, HTN, Cirrhosis and ESRD on Hemo-dialysis MWF was diagnosed with acute CVA 03/12/17 with left hemiparesis and slurred speech . He was transferred from the [facility] to the rehab Unit at [facility] for rehabilitation and continued management. At present participating well with PT and showing improvement 1. Acute CVA with left facial droop , slurred speech and left side weakness Consult with Dr Murillo Advertising Columnist appreciated Continue OT/PT Speech therapy continue aspirin and Plavix, and Lipitor 2. ESRD on HD MWF Consult Dr Mancia Nephrology for Dialysis appreciated Continue PhosLo, calcitriol, Procrit For HD today 3. DM II controlled Regular Insulin sliding scale according to Accucheck 4. CHF on Lasix Isosorbide Mononitrate 5. Hyperkalemia 6.1 yesterday Kayexelate given 04/04 For hemodialysis today 5. Cirrhosis continue Rifaximin,Lactulose, cholestyramine 6. COPD Continue Advair 7. Anemia of chronic kidney disease continue Epo 8. DVT prophylaxis Heparin
--- NOTE | 2017-04-05 13:21 | CP.PCM.PN ---
Subjective - Date & Time of Evaluation Date of Evaluation: 04/05/17 Time of Evaluation: 09:51 - Subjective Subjective: OOB receiving therapy feela better Objective - Vital Signs/Intake and Output Vital Signs (last 24 hours): Temp Pulse Resp BP Pulse Ox 97.5 F L 80 19 144/62 97 04/05/17 08:43 04/05/17 08:43 04/05/17 08:43 04/05/17 13:00 04/05/17 08:43 - Medications Medications: Current Medications Acetaminophen (Tylenol 325mg Tab) 650 mg PO Q6 PRN PRN Reason: pain 1-10 Last Admin: 03/30/17 11:52 Dose: 650 mg Aspirin (Ecotrin) 81 mg PO DAILY [facility] Last Admin: 04/05/17 09:11 Dose: 81 mg Atorvastatin Calcium (Lipitor) 20 mg PO HS [facility] Last Admin: 04/04/17 21:03 Dose: 20 mg Calcium Acetate (Phoslo) 667 mg PO TID [facility] Last Admin: 04/05/17 12:54 Dose: 667 mg Cholestyramine Resin (Questran) 4 gm PO Q8 [facility] Last Admin: 04/05/17 13:00 Dose: 4 gm Clopidogrel Bisulfate (Plavix) 75 mg PO DAILY [facility] Last Admin: 04/05/17 09:12 Dose: 75 mg Diphenhydramine HCl (Benadryl) 12.5 mg PO Q6 PRN PRN Reason: Itching / Pruritus Epoetin Brian (Procrit) 4,000 unit IV MWF [facility] Last Admin: 04/02/17 17:13 Dose: 4,000 unit Ergocalciferol (Drisdol 50,000 Intl Units Cap) 1 cap PO MON [facility] Famotidine (Pepcid) 20 mg PO 2100 [facility] Last Admin: 04/04/17 20:42 Dose: 20 mg Gabapentin (Neurontin) 300 mg PO DAILY [facility] Last Admin: 04/05/17 09:13 Dose: 300 mg Heparin Sodium (Porcine) (Heparin) 5,000 units SC Q12 [facility] PRN Reason: Protocol Last Admin: 04/05/17 09:11 Dose: 5,000 units Hydralazine HCl (Apresoline) 25 mg PO Q8 [facility] Last Admin: 04/05/17 13:00 Dose: 25 mg Insulin Human Regular (Humulin R) 0 units SC ACHS [facility] PRN Reason: Protocol Last Admin: 04/05/17 12:00 Dose: 1 unit Isosorbide Mononitrate (Imdur) 60 mg PO DAILY [facility] Last Admin: 04/05/17 09:12 Dose: 60 mg Lactic Acid (Lac-Hydrin 12% Lotion (225 G)) 1 applic TOP Q12 [facility] Last Admin: 04/05/17 09:10 Dose: 1 applic Lactulose (Enulose) 20 gm PO DAILY [facility] Last Admin: 04/05/17 09:14 Dose: Not Given Multivitamins/Minerals (Therapeutic-M Tab) 1 tab PO DAILY [facility] Last Admin: 04/05/17 09:11 Dose: 1 tab Rifaximin (Xifaxan) 550 mg PO BID [facility] PRN Reason: Protocol Last Admin: 04/05/17 09:11 Dose: 550 mg Fluticasone/Salmeterol (Advair Diskus 250/50) 1 puff INH Q12 [facility] Last Admin: 04/05/17 09:10 Dose: 1 puff - Labs Labs: 04/04/17 12:00 04/04/17 12:00 PT 17.3 Seconds (9.8-13.1) H 03/18/17 05:20 INR 1.5 (0.9-1.2) H 03/18/17 05:20 APTT 39.1 Seconds (25.6-37.1) H 03/18/17 05:20 - Constitutional Appears: No Acute Distress - ENT Exam ENT Exam: Mucous Membranes Moist - Cardiovascular Exam Cardiovascular Exam: absent: JVD, Rubs - GI/Abdominal Exam GI & Abdominal Exam: Soft, Normal Bowel Sounds - Extremities Exam Extremities Exam: absent: Calf Tenderness - Back Exam Back Exam: absent: CVA tenderness (L), CVA tenderness (R) - Neurological Exam Neurological Exam: Alert - Psychiatric Exam Psychiatric exam: Normal Affect Assessment and Plan (1) CKD (chronic kidney disease) requiring chronic dialysis Assessment & Plan: ESRD to receive HD shortly order given K bath 2 meq NA 138 UF about 2000 cc pt. has been tolerating ok Anemia better . same meds Status: Acute (2) CVA (cerebral vascular accident) Status: Acute
[2017-04-05 16:29] LABS: ALB/GLOB RATIO 0.8 (1.0-2.1); BILIRUBIN,TOTAL 3.5 mg/dl (0.2-1.3); CALCIUM 8.9 mg/dL (8.4-10.2); TOTAL PROTEIN 7.8 G/DL (6.3-8.2)
[2017-04-05] MEDS: Epoetin Alfa 4000 UNIT/ML Inj IV SCH (16:50)
--- NOTE | 2017-04-05 17:11 | CP.PCM.PN ---
Subjective - Date & Time of Evaluation Date of Evaluation: 04/05/17 Time of Evaluation: 17:10 - Subjective Subjective: patient seen in room denies sob/cp working hard in therapies team conf tomorrow for d/c planning 04/13/17 ELOS for him Objective - Vital Signs/Intake and Output Vital Signs (last 24 hours): Temp Pulse Resp BP Pulse Ox 97.5 F L 80 19 144/62 97 04/05/17 08:43 04/05/17 08:43 04/05/17 08:43 04/05/17 13:00 04/05/17 08:43 - Medications Medications: Current Medications Acetaminophen (Tylenol 325mg Tab) 650 mg PO Q6 PRN PRN Reason: pain 1-10 Last Admin: 03/30/17 11:52 Dose: 650 mg Aspirin (Ecotrin) 81 mg PO DAILY [facility] Last Admin: 04/05/17 09:11 Dose: 81 mg Atorvastatin Calcium (Lipitor) 20 mg PO HS [facility] Last Admin: 04/04/17 21:03 Dose: 20 mg Calcium Acetate (Phoslo) 667 mg PO TID [facility] Last Admin: 04/05/17 12:54 Dose: 667 mg Cholestyramine Resin (Questran) 4 gm PO Q8 [facility] Last Admin: 04/05/17 13:00 Dose: 4 gm Clopidogrel Bisulfate (Plavix) 75 mg PO DAILY [facility] Last Admin: 04/05/17 09:12 Dose: 75 mg Diphenhydramine HCl (Benadryl) 12.5 mg PO Q6 PRN PRN Reason: Itching / Pruritus Epoetin Brian (Procrit) 4,000 unit IV MWF [facility] Last Admin: 04/05/17 16:50 Dose: 4,000 unit Ergocalciferol (Drisdol 50,000 Intl Units Cap) 1 cap PO MON [facility] Famotidine (Pepcid) 20 mg PO 2100 [facility] Last Admin: 04/04/17 20:42 Dose: 20 mg Gabapentin (Neurontin) 300 mg PO DAILY [facility] Last Admin: 04/05/17 09:13 Dose: 300 mg Heparin Sodium (Porcine) (Heparin) 5,000 units SC Q12 [facility] PRN Reason: Protocol Last Admin: 04/05/17 09:11 Dose: 5,000 units Hydralazine HCl (Apresoline) 25 mg PO Q8 [facility] Last Admin: 04/05/17 13:00 Dose: 25 mg Insulin Human Regular (Humulin R) 0 units SC ACHS [facility] PRN Reason: Protocol Last Admin: 04/05/17 16:51 Dose: Not Given Isosorbide Mononitrate (Imdur) 60 mg PO DAILY [facility] Last Admin: 04/05/17 09:12 Dose: 60 mg Lactic Acid (Lac-Hydrin 12% Lotion (225 G)) 1 applic TOP Q12 [facility] Last Admin: 04/05/17 09:10 Dose: 1 applic Lactulose (Enulose) 20 gm PO DAILY [facility] Last Admin: 04/05/17 09:14 Dose: Not Given Multivitamins/Minerals (Therapeutic-M Tab) 1 tab PO DAILY [facility] Last Admin: 04/05/17 09:11 Dose: 1 tab Rifaximin (Xifaxan) 550 mg PO BID [facility] PRN Reason: Protocol Last Admin: 04/05/17 09:11 Dose: 550 mg Fluticasone/Salmeterol (Advair Diskus 250/50) 1 puff INH Q12 [facility] Last Admin: 04/05/17 09:10 Dose: 1 puff - Labs Labs: 04/04/17 12:00 04/05/17 16:15 PT 17.3 Seconds (9.8-13.1) H 03/18/17 05:20 INR 1.5 (0.9-1.2) H 03/18/17 05:20 APTT 39.1 Seconds (25.6-37.1) H 03/18/17 05:20
--- NOTE | 2017-04-06 05:16 | CP.PCM.PN ---
Subjective - Date & Time of Evaluation Date of Evaluation: 04/06/17 Time of Evaluation: 05:16 - Subjective Subjective: Called to evaluate patient with pain to the left lower chest 10 non radiating and of 15 minutes duration. he referred a similar pain 2 weeks back while in the Acute Rehab. the pain is continuous and does not not pleuritic. No SOB, nausea, diaphoresis. Exam: Not in respiratory distress Resp: Distant breath sounds, no rales nor wheezes CVS: S1 S2 RRR, no S3 nor S4 Abd: Distended, Ascites, Liver 4 finger breath below the right costal margin, tender to palpation Epigastrium tender to palpation. +ve bowel sounds, no guarding nor rebound tenderness Ext: no edema, non tender Neuro: Awake alert, oriented, clear speech EKG: NSR 87/min, Left Atrial enlargement, T wave invertion in V6 other saini no change from EKG of 03/20/17 I&P: #. Chest Pain in patient with Gastritis, and CAD. EKG showed no significant changes - Pepcid 20mg given - NTG sublingual X1 and pain decreased to 3/10 - Troponin ordered Stat, 3hrs and 6 hrs - Oxygen at 2L/min PRN to maintain SpO2>94 - Patient will be transferred from the Sub acute Rehab Unit if changes in Troponin Cory Junior MD Objective - Vital Signs/Intake and Output Vital Signs (last 24 hours): Temp Pulse Resp BP Pulse Ox 96.0 F L 84 18 141/91 H 95 04/05/17 20:37 04/05/17 21:15 04/05/17 20:37 04/05/17 21:15 04/05/17 20:37 - Medications Medications: Current Medications Acetaminophen (Tylenol 325mg Tab) 650 mg PO Q6 PRN PRN Reason: pain 1-10 Last Admin: 03/30/17 11:52 Dose: 650 mg Aspirin (Ecotrin) 81 mg PO DAILY [facility] Last Admin: 04/05/17 09:11 Dose: 81 mg Atorvastatin Calcium (Lipitor) 20 mg PO HS [facility] Last Admin: 04/05/17 21:15 Dose: 20 mg Calcium Acetate (Phoslo) 667 mg PO TID [facility] Last Admin: 04/05/17 21:10 Dose: 667 mg Cholestyramine Resin (Questran) 4 gm PO Q8 [facility] Last Admin: 04/05/17 21:16 Dose: 4 gm Clopidogrel Bisulfate (Plavix) 75 mg PO DAILY [facility] Last Admin: 04/05/17 09:12 Dose: 75 mg Diphenhydramine HCl (Benadryl) 12.5 mg PO Q6 PRN PRN Reason: Itching / Pruritus Epoetin Brina (Procrit) 4,000 unit IV MWF [facility] Last Admin: 04/05/17 16:50 Dose: 4,000 unit Ergocalciferol (Drisdol 50,000 Intl Units Cap) 1 cap PO MON [facility] Famotidine (Pepcid) 20 mg PO 2100 [facility] Last Admin: 04/05/17 21:15 Dose: 20 mg Gabapentin (Neurontin) 300 mg PO DAILY [facility] Last Admin: 04/05/17 09:13 Dose: 300 mg Heparin Sodium (Porcine) (Heparin) 5,000 units SC Q12 [facility] PRN Reason: Protocol Last Admin: 04/05/17 21:31 Dose: Not Given Hydralazine HCl (Apresoline) 25 mg PO Q8 [facility] Last Admin: 04/05/17 21:15 Dose: 25 mg Insulin Human Regular (Humulin R) 0 units SC ACHS [facility] PRN Reason: Protocol Last Admin: 04/05/17 21:30 Dose: Not Given Isosorbide Mononitrate (Imdur) 60 mg PO DAILY [facility] Last Admin: 04/05/17 09:12 Dose: 60 mg Lactic Acid (Lac-Hydrin 12% Lotion (225 G)) 1 applic TOP Q12 [facility] Last Admin: 04/05/17 21:16 Dose: 1 applic Lactulose (Enulose) 20 gm PO DAILY [facility] Last Admin: 04/05/17 09:14 Dose: Not Given Multivitamins/Minerals (Therapeutic-M Tab) 1 tab PO DAILY [facility] Last Admin: 04/05/17 09:11 Dose: 1 tab Nitroglycerin (Nitrostat Sl Tab) 0.4 mg SL Q5M PRN PRN Reason: Other Rifaximin (Xifaxan) 550 mg PO BID [facility] PRN Reason: Protocol Last Admin: 04/05/17 21:10 Dose: 550 mg Fluticasone/Salmeterol (Advair Diskus 250/50) 1 puff INH Q12 [facility] Last Admin: 04/05/17 21:44 Dose: 1 puff - Labs Labs: 04/04/17 12:00 04/05/17 16:15 PT 17.3 Seconds (9.8-13.1) H 03/18/17 05:20 INR 1.5 (0.9-1.2) H 03/18/17 05:20 APTT 39.1 Seconds (25.6-37.1) H 03/18/17 05:20
[2017-04-06] MEDS: Cholestyramine 4 gm/Pkt UD PO SCH ×3 (05:24→21:25)
[2017-04-06] MEDS: Insulin Regular 100 units/ml SC SCH ×4 (06:52→21:26)
[2017-04-06] MEDS: Fluticasone-Salmeterol 250-50mcg Diskus INH SCH ×2 (08:47→20:38)
[2017-04-06] MEDS: Multivitamin With Minerals Tab PO SCH (08:52)
--- NOTE | 2017-04-06 13:15 | PSY.TMCNF ---
Nursing - Vital Signs Vital Signs (Last 8 hours): Vital Signs 04/06/17 04/06/17 04/06/17 05:23 09:06 10:49 Temperature 97.9 F 97.9 F Pulse Rate 87 81 81 Respiratory 19 19 Rate Blood Pressure 139/92 H 139/74 139/74 O2 Sat by Pulse 96 Oximetry 04/06/17 13:04 Temperature Pulse Rate Respiratory Rate Blood Pressure 142/69 O2 Sat by Pulse Oximetry Pain: 0 - Precautions: Precautions: Fall Prevention - Medications/Other Issues Comment: still c/o itchiness despite Lac hydrin. - c/o chest pain this morning. EKG no changes. Troponin (-) - Consults Comment: DR Mancia, Dr. Murillo, Dr. Eller. - Toileting Toileting: Maximal Assistance - Bladder Management Bladder Pattern: Normal Voiding Method: Toilet Bladder Management: Supervision Frequency of Accidents: 0 - Bowel Management Bowel Pattern: Normal Bowel Management: Supervision Frequency of Accidents: 0 - Transfers Transfers: Moderate Assistance - ADL's ADL's: Maximal Assistance - Patient/Family Teaching Comments: CARE POST CVA AND SAFETY PRECAUTIONS - Goals/Time Frame Comments: PER MULTIDISCIPLINARY CARE PLAN GOALS - Provider Provider: THERESA GUEVARAN RN CRRN Physical Therapy - Bed Mobility Bed Mobility: Minimal Assistance - Transfers Wheelchair to Mat: Contact Guard, Minimal Assistance Sit to Stand: Contact Guard - Ambulation Level of Assistance: Contact Guard, Minimal Assistance Distance (ft.): 75 Assistive Devices: Rolling Walker - Stair Negotiation Stairs: Level of Assistance: Minimal Assistance, Maximum Assistance Handrails: Bilateral Comment: min A to ascend, max A to descend - Standing Balance Static Stand: Contact Guard Assist Dynamic Stand: Minimal Assistance, Moderate Assistance - Pain Management Techniques: Heat Comment: L knee - Insight/Carryover Insight/Carryover: Good - Patient/Family Education Comment: Recovery after CVA, role of OT and rehab, SROM, compensatory strategies with ADLs and ADL transfers - Assessment/Plan Assessment: Recommend continued OT services 5-6x/week to maximize LUE function and increase independence with ADLs and functional mobility in order to return to home environment - Goals Timeframe: 2 weeks Goals: -Increase RUE strength: 4 to 4+/5 throughout for improve adls. Pt's caregiver daisy I assisting/cueing pt with adls, transfers/mobility using safety strategies/techniques. -150 feet--supervision/distant supervsiion. -manage B brakes with supervision. Minimal assist and verbal cues. LE Minimal assist and verbal cues--adaptive strategies. UE setup/Supervision--seated. grooming-S - Provider Therapist: Anabel Eisenberg PT DPT License Number: [id number] Occupational Therapy - Arousal/Attention/Orientation Level of Consciousness: Awake, Alert, Forgetful Patient Orientation: Person, Place - ADL/IADL Self Feeding: Set-up Help Grooming: Verbal Cues, Minimal Assistance Bathing-Upper Extremity: Verbal Cues, Moderate Assistance Bathing-Lower Extremity: Maximum Assistance Dressing-Upper Extremity: Moderate Assistance Dressing-Lower Extremity: Maximum Assistance - Sitting Balance Static Sitting: Supervision Dynamic Sitting: Minimal Assistance - Transfers Wheelchair to Bed Transfers: Supervision, Verbal Cues, Minimal Assistance Toilet Transfers: Verbal Cues, Set-up Help, Moderate Assistance Tub Transfers: Supervision, Verbal Cues, Set-up Help, Moderate Assistance - Wheelchair Management Level of Assistance: Maximum Assistance Distance (ft.): 10 - Upper Extremity Status Right Upper Extremity Comment: WFL Left Upper Extremity Comment: Decreased strength, coordination. 3/5 - Pain Alleviating Techniques: Heat Comment: L knee - Insight/Carryover Insight/Carryover: Good - Patient/Family Education Comment: Recovery after CVA, role of OT and rehab, SROM, compensatory strategies with ADLs and ADL transfers - Assessment/Plan Assessment: Recommend continued OT services 5-6x/week to maximize LUE function and increase independence with ADLs and functional mobility in order to return to home environment - Goals Timeframe: 2 weeks Goals: -Increase RUE strength: 4 to 4+/5 throughout for improve adls. Pt's caregiver daisy I assisting/cueing pt with adls, transfers/mobility using safety strategies/techniques. -150 feet--supervision/distant supervsiion. -manage B brakes with supervision. Minimal assist and verbal cues. LE Minimal assist and verbal cues--adaptive strategies. UE setup/Supervision--seated. grooming-S - Provider Therapist: Yamila Mojica License Number: [id number] Speech Therapy - Consult Information Patient on Program: Yes Medical Diagnosis: CVA Treatment Diagnosis: mild dysarthria. mild cognitive-linguistic deficits. mild dysphagia - Assessment Memory Impairment: Mild Speech/Articulation Impairment: Mild Dysphagia/Swallowing Impairment: Mild Comment: diet advanced to regular/thin on 04/02/17 - Plan Assessment: Recommend continued OT services 5-6x/week to maximize LUE function and increase independence with ADLs and functional mobility in order to return to home environment - Provider Therapist: Davida Hensley License Number: [id number] Recreational Therapy - Participation Participation: Participates in Individual and/or Group Sessions, Monitors His/ Her Own Leisure Time - Attendance Attendance: Daily - Socialization Level of Socialization: Initiates/interacts freely with care givers and peer - Diversional Time Diversional Time: listening to music - Assessment Assessment/Plan: Recommend continued OT services 5-6x/week to maximize LUE function and increase independence with ADLs and functional mobility in order to return to home environment - Provider Therapist: Ashley Jin, DIRECTOR OF DESIGN #[id number] Nutrition - Current Diet Current Diet/ Supplement/ Feedings: heart healthy moderate consistent CHO renal dialysis 1200 ml fluid restriction thin liquids - Appetite Percent Meal Consumed: 75-100% - Comments Comments: CARE POST CVA AND SAFETY PRECAUTIONS - Assessment/Goals/Time Frame Assessment/Goals/Time Frame: still c/o itchiness despite Lac hydrin. - c/o chest pain this morning. EKG no changes. Troponin (-) - Provider Provider: Dari Burnett RD Case Management - Psychosocial Assessment Support Systems: Patient's sister Chetna- [phone] Psychological Interventions/Needs: Patient is alert and oriented x3 and able to verbalize needs Discharge Concerns: Patient currently requiring min A for functional mobility Patient/Family Meeting: CM met with patient and rehab team Intervention/Goal/Outcome:: 1. Goal: 24 hour supervision/assist overall. 2. Plan : Home with VNS and family support- caregiver training completed, family verbalizes patient has improved functionally from his status at home. 3. refer to [facility] for home therapy and to reinstatement homemaker services. 5. DME needs - w/c? 6.continued caregiver training. 7. continued stay auth, LAD: 04/03- updates to be faxed on 04/02. 8. Tentative discharge date: 04/13 - Discharge Plan Discharge Plan: Home with significant other/family, Home with services - Provider Provider: RAYMUNDO Marino, [employer] License Number: [id number] Rehabilitation Plan - Treatment Plan Treatment Plan: Physical Therapy, Occupational Therapy, Speech, Dietary, Patient /Family Education - Discharge Plan Estimated Date of Discharge: 04/13/17 Discharge to: Home
--- NOTE | 2017-04-06 13:52 | CP.PCM.PN ---
Subjective - Date & Time of Evaluation Date of Evaluation: 04/06/17 Time of Evaluation: 13:51 - Subjective Subjective: Patient seen in room doing well pain is controlled continent now of B/B continue current care Objective - Vital Signs/Intake and Output Vital Signs (last 24 hours): Temp Pulse Resp BP Pulse Ox 97.9 F 81 19 142/69 96 04/06/17 10:49 04/06/17 10:49 04/06/17 10:49 04/06/17 13:04 04/06/17 09:06 - Medications Medications: Current Medications Acetaminophen (Tylenol 325mg Tab) 650 mg PO Q6 PRN PRN Reason: pain 1-10 Last Admin: 03/30/17 11:52 Dose: 650 mg Aspirin (Ecotrin) 81 mg PO DAILY [facility] Last Admin: 04/06/17 09:00 Dose: 81 mg Atorvastatin Calcium (Lipitor) 20 mg PO HS [facility] Last Admin: 04/05/17 21:15 Dose: 20 mg Calcium Acetate (Phoslo) 667 mg PO TID [facility] Last Admin: 04/06/17 12:54 Dose: 667 mg Cholestyramine Resin (Questran) 4 gm PO Q8 [facility] Last Admin: 04/06/17 13:04 Dose: 4 gm Clopidogrel Bisulfate (Plavix) 75 mg PO DAILY [facility] Last Admin: 04/06/17 08:52 Dose: 75 mg Diphenhydramine HCl (Benadryl) 12.5 mg PO Q6 PRN PRN Reason: Itching / Pruritus Epoetin Brian (Procrit) 4,000 unit IV MWF [facility] Last Admin: 04/05/17 16:50 Dose: 4,000 unit Ergocalciferol (Drisdol 50,000 Intl Units Cap) 1 cap PO MON [facility] Famotidine (Pepcid) 20 mg PO 2100 [facility] Last Admin: 04/05/17 21:15 Dose: 20 mg Gabapentin (Neurontin) 300 mg PO DAILY [facility] Last Admin: 04/06/17 08:52 Dose: 300 mg Heparin Sodium (Porcine) (Heparin) 5,000 units SC Q12 [facility] PRN Reason: Protocol Last Admin: 04/06/17 08:53 Dose: 5,000 units Hydralazine HCl (Apresoline) 25 mg PO Q8 [facility] Last Admin: 04/06/17 13:04 Dose: 25 mg Insulin Human Regular (Humulin R) 0 units SC ACHS [facility] PRN Reason: Protocol Last Admin: 04/06/17 12:53 Dose: 2 unit Isosorbide Mononitrate (Imdur) 60 mg PO DAILY [facility] Last Admin: 04/06/17 08:54 Dose: 60 mg Lactic Acid (Lac-Hydrin 12% Lotion (225 G)) 1 applic TOP Q12 [facility] Last Admin: 04/06/17 08:48 Dose: 1 applic Lactulose (Enulose) 20 gm PO DAILY [facility] Last Admin: 04/06/17 08:48 Dose: 20 gm Multivitamins/Minerals (Therapeutic-M Tab) 1 tab PO DAILY [facility] Last Admin: 04/06/17 08:52 Dose: 1 tab Nitroglycerin (Nitrostat Sl Tab) 0.4 mg SL Q5M PRN PRN Reason: Other Rifaximin (Xifaxan) 550 mg PO BID [facility] PRN Reason: Protocol Last Admin: 04/06/17 08:47 Dose: 550 mg Fluticasone/Salmeterol (Advair Diskus 250/50) 1 puff INH Q12 [facility] Last Admin: 04/06/17 08:47 Dose: 1 puff - Labs Labs: 04/04/17 12:00 04/05/17 16:15 PT 17.3 Seconds (9.8-13.1) H 03/18/17 05:20 INR 1.5 (0.9-1.2) H 03/18/17 05:20 APTT 39.1 Seconds (25.6-37.1) H 03/18/17 05:20
[2017-04-07] MEDS: Cholestyramine 4 gm/Pkt UD PO SCH ×3 (06:16→22:14)
[2017-04-07] MEDS: Insulin Regular 100 units/ml SC SCH ×4 (06:33→21:36)
[2017-04-07] MEDS: Fluticasone-Salmeterol 250-50mcg Diskus INH SCH ×2 (08:16→21:08)
[2017-04-07] MEDS: Multivitamin With Minerals Tab PO SCH (08:22)
--- NOTE | 2017-04-07 11:57 | CARD ---
APPROVED REPORT EKG Measurement Heart [id number] <Conclusion> Normal sinus rhythm Possible Left atrial enlargement Nonspecific T wave abnormality Prolonged QT Abnormal ECG
--- NOTE | 2017-04-07 15:12 | CP.PCM.PN ---
Subjective - Date & Time of Evaluation Date of Evaluation: 04/07/17 Time of Evaluation: 15:00 - Subjective Subjective: Patient seen and examined bedside. Feeling well. Participating with PT. Still with left facial droop , left side weakness and numbness Hemodynamically stable, afebrile Objective - Vital Signs/Intake and Output Vital Signs (last 24 hours): Temp Pulse Resp BP Pulse Ox 97.1 F L 84 19 133/69 99 04/07/17 08:49 04/07/17 14:24 04/07/17 08:49 04/07/17 14:24 04/07/17 08:49 - Medications Medications: Current Medications Acetaminophen (Tylenol 325mg Tab) 650 mg PO Q6 PRN PRN Reason: pain 1-10 Last Admin: 03/30/17 11:52 Dose: 650 mg Aspirin (Ecotrin) 81 mg PO DAILY [facility] Last Admin: 04/07/17 08:17 Dose: 81 mg Atorvastatin Calcium (Lipitor) 20 mg PO HS [facility] Last Admin: 04/06/17 21:25 Dose: 20 mg Calcium Acetate (Phoslo) 667 mg PO TID [facility] Last Admin: 04/07/17 12:14 Dose: 667 mg Cholestyramine Resin (Questran) 4 gm PO Q8 [facility] Last Admin: 04/07/17 14:24 Dose: 4 gm Clopidogrel Bisulfate (Plavix) 75 mg PO DAILY [facility] Last Admin: 04/07/17 08:22 Dose: 75 mg Diphenhydramine HCl (Benadryl) 12.5 mg PO Q6 PRN PRN Reason: Itching / Pruritus Epoetin Brian (Procrit) 4,000 unit IV MWF [facility] Last Admin: 04/05/17 16:50 Dose: 4,000 unit Ergocalciferol (Drisdol 50,000 Intl Units Cap) 1 cap PO MON [facility] Famotidine (Pepcid) 20 mg PO 2100 [facility] Last Admin: 04/06/17 20:40 Dose: 20 mg Gabapentin (Neurontin) 300 mg PO DAILY [facility] Last Admin: 04/07/17 08:22 Dose: 300 mg Heparin Sodium (Porcine) (Heparin) 5,000 units SC Q12 [facility] PRN Reason: Protocol Last Admin: 04/07/17 08:20 Dose: 5,000 units Hydralazine HCl (Apresoline) 25 mg PO Q8 [facility] Last Admin: 04/07/17 14:24 Dose: 25 mg Insulin Human Regular (Humulin R) 0 units SC ACHS [facility] PRN Reason: Protocol Last Admin: 04/07/17 12:14 Dose: 3 unit Isosorbide Mononitrate (Imdur) 60 mg PO DAILY [facility] Last Admin: 04/07/17 08:22 Dose: 60 mg Lactic Acid (Lac-Hydrin 12% Lotion (225 G)) 1 applic TOP Q12 [facility] Last Admin: 04/07/17 08:17 Dose: 1 applic Lactulose (Enulose) 20 gm PO DAILY [facility] Last Admin: 04/07/17 08:18 Dose: Not Given Multivitamins/Minerals (Therapeutic-M Tab) 1 tab PO DAILY [facility] Last Admin: 04/07/17 08:22 Dose: 1 tab Nitroglycerin (Nitrostat Sl Tab) 0.4 mg SL Q5M PRN PRN Reason: Other Rifaximin (Xifaxan) 550 mg PO BID [facility] PRN Reason: Protocol Last Admin: 04/07/17 08:23 Dose: 550 mg Fluticasone/Salmeterol (Advair Diskus 250/50) 1 puff INH Q12 [facility] Last Admin: 04/07/17 08:16 Dose: 1 puff - Labs Labs: 04/04/17 12:00 04/05/17 16:15 PT 17.3 Seconds (9.8-13.1) H 03/18/17 05:20 INR 1.5 (0.9-1.2) H 03/18/17 05:20 APTT 39.1 Seconds (25.6-37.1) H 03/18/17 05:20 - Constitutional Appears: Non-toxic, Toxic, No Acute Distress - Head Exam Head Exam: ATRAUMATIC, NORMAL INSPECTION, NORMOCEPHALIC - Eye Exam Eye Exam: EOMI, Normal appearance, PERRL Pupil Exam: NORMAL ACCOMODATION - ENT Exam ENT Exam: Mucous Membranes Moist, Normal Exam - Neck Exam Neck Exam: Full ROM, Normal Inspection - Respiratory Exam Respiratory Exam: Clear to Ausculation Bilateral, NORMAL BREATHING PATTERN. absent: Rales, Rhonchi, Wheezes - Cardiovascular Exam Cardiovascular Exam: REGULAR RHYTHM, RRR, +S1, +S2. absent: JVD - GI/Abdominal Exam GI & Abdominal Exam: Soft, Normal Bowel Sounds. absent: Distended, Guarding, Tenderness, Rebound - Rectal Exam Rectal Exam: Deferred - Extremities Exam Extremities Exam: Full ROM, Normal Capillary Refill, Normal Inspection. absent : Calf Tenderness, Pedal Edema - Back Exam Back Exam: NORMAL INSPECTION - Neurological Exam Neurological Exam: Alert, Awake Additional comments: left facial droop left side weakness - Psychiatric Exam Psychiatric exam: Normal Affect - Skin Skin Exam: Dry, Intact, Normal Color, Warm Assessment and Plan - Assessment and Plan (Free Text) Assessment: 51 years old male with hx of DM II, HTN, Cirrhosis and ESRD on Hemo-dialysis MWF was diagnosed with acute CVA 03/12/17 with left hemiparesis and slurred speech . He was transferred from the [facility] to the rehab Unit at [facility] for rehabilitation and continued management. At present participating well with PT and showing improvement 1. Acute CVA with left facial droop , slurred speech and left side weakness Consult with Dr Murillo Bulb Sorter appreciated Continue OT/PT Speech therapy continue aspirin and Plavix, and Lipitor 2. ESRD on HD MWF Consult Dr Mancia Nephrology for Dialysis appreciated Continue PhosLo, calcitriol, Procrit For HD today 3. DM II controlled Regular Insulin sliding scale according to Accucheck 4. CHF on Lasix Isosorbide Mononitrate 5. Cirrhosis continue Rifaximin,Lactulose, cholestyramine 6. COPD Continue Advair 7. Anemia of chronic kidney disease continue Epo 8. DVT prophylaxis Heparin
--- NOTE | 2017-04-07 16:01 | CP.PCM.PN ---
Subjective - Date & Time of Evaluation Date of Evaluation: 04/07/17 Time of Evaluation: 15:59 - Subjective Subjective: OOB feeling better no nausea stable P/E chest clear HT no rubs Abd ? some ascitis A/P ESRD HD starting any time now review order of HD rest of medicla issues the same. Objective - Vital Signs/Intake and Output Vital Signs (last 24 hours): Temp Pulse Resp BP Pulse Ox 97.1 F L 84 19 133/69 99 04/07/17 08:49 04/07/17 14:24 04/07/17 08:49 04/07/17 14:24 04/07/17 08:49 - Medications Medications: Current Medications Acetaminophen (Tylenol 325mg Tab) 650 mg PO Q6 PRN PRN Reason: pain 1-10 Last Admin: 03/30/17 11:52 Dose: 650 mg Aspirin (Ecotrin) 81 mg PO DAILY [facility] Last Admin: 04/07/17 08:17 Dose: 81 mg Atorvastatin Calcium (Lipitor) 20 mg PO HS [facility] Last Admin: 04/06/17 21:25 Dose: 20 mg Calcium Acetate (Phoslo) 667 mg PO TID [facility] Last Admin: 04/07/17 12:14 Dose: 667 mg Cholestyramine Resin (Questran) 4 gm PO Q8 [facility] Last Admin: 04/07/17 14:24 Dose: 4 gm Clopidogrel Bisulfate (Plavix) 75 mg PO DAILY [facility] Last Admin: 04/07/17 08:22 Dose: 75 mg Diphenhydramine HCl (Benadryl) 12.5 mg PO Q6 PRN PRN Reason: Itching / Pruritus Epoetin Brian (Procrit) 4,000 unit IV MWF [facility] Last Admin: 04/05/17 16:50 Dose: 4,000 unit Ergocalciferol (Drisdol 50,000 Intl Units Cap) 1 cap PO MON [facility] Famotidine (Pepcid) 20 mg PO 2100 [facility] Last Admin: 04/06/17 20:40 Dose: 20 mg Gabapentin (Neurontin) 300 mg PO DAILY [facility] Last Admin: 04/07/17 08:22 Dose: 300 mg Heparin Sodium (Porcine) (Heparin) 5,000 units SC Q12 [facility] PRN Reason: Protocol Last Admin: 04/07/17 08:20 Dose: 5,000 units Hydralazine HCl (Apresoline) 25 mg PO Q8 [facility] Last Admin: 04/07/17 14:24 Dose: 25 mg Insulin Human Regular (Humulin R) 0 units SC ACHS [facility] PRN Reason: Protocol Last Admin: 04/07/17 12:14 Dose: 3 unit Isosorbide Mononitrate (Imdur) 60 mg PO DAILY [facility] Last Admin: 04/07/17 08:22 Dose: 60 mg Lactic Acid (Lac-Hydrin 12% Lotion (225 G)) 1 applic TOP Q12 [facility] Last Admin: 04/07/17 08:17 Dose: 1 applic Lactulose (Enulose) 20 gm PO DAILY [facility] Last Admin: 04/07/17 08:18 Dose: Not Given Multivitamins/Minerals (Therapeutic-M Tab) 1 tab PO DAILY [facility] Last Admin: 04/07/17 08:22 Dose: 1 tab Nitroglycerin (Nitrostat Sl Tab) 0.4 mg SL Q5M PRN PRN Reason: Other Rifaximin (Xifaxan) 550 mg PO BID [facility] PRN Reason: Protocol Last Admin: 04/07/17 08:23 Dose: 550 mg Fluticasone/Salmeterol (Advair Diskus 250/50) 1 puff INH Q12 [facility] Last Admin: 04/07/17 08:16 Dose: 1 puff - Labs Labs: 04/04/17 12:00 04/05/17 16:15 PT 17.3 Seconds (9.8-13.1) H 03/18/17 05:20 INR 1.5 (0.9-1.2) H 03/18/17 05:20 APTT 39.1 Seconds (25.6-37.1) H 03/18/17 05:20 Assessment and Plan (1) CKD (chronic kidney disease) requiring chronic dialysis Status: Acute (2) CVA (cerebral vascular accident) Status: Acute
[2017-04-07] MEDS: Epoetin Alfa 4000 UNIT/ML Inj IV SCH (17:50)
[2017-04-08] MEDS: Cholestyramine 4 gm/Pkt UD PO SCH ×3 (05:54→21:38)
[2017-04-08] MEDS: Insulin Regular 100 units/ml SC SCH ×4 (06:30→21:40)
[2017-04-08] MEDS: Multivitamin With Minerals Tab PO SCH (09:03)
[2017-04-08] MEDS: Fluticasone-Salmeterol 250-50mcg Diskus INH SCH ×2 (12:26→21:38)
--- NOTE | 2017-04-08 18:11 | CP.PCM.PN ---
Subjective - Date & Time of Evaluation Date of Evaluation: 04/08/17 Time of Evaluation: 18:10 - Subjective Subjective: Patient seen in room doing ok ambulating 40' in therapies today pain is controlled continue current care Objective - Vital Signs/Intake and Output Vital Signs (last 24 hours): Temp Pulse Resp BP Pulse Ox 97.0 F L 85 18 123/82 98 04/08/17 07:48 04/08/17 13:16 04/08/17 07:48 04/08/17 13:16 04/08/17 07:48 - Medications Medications: Current Medications Acetaminophen (Tylenol 325mg Tab) 650 mg PO Q6 PRN PRN Reason: pain 1-10 Last Admin: 03/30/17 11:52 Dose: 650 mg Aspirin (Ecotrin) 81 mg PO DAILY [facility] Last Admin: 04/08/17 09:02 Dose: 81 mg Atorvastatin Calcium (Lipitor) 20 mg PO HS [facility] Last Admin: 04/07/17 22:13 Dose: 20 mg Calcium Acetate (Phoslo) 667 mg PO TID [facility] Last Admin: 04/08/17 17:39 Dose: 667 mg Cholestyramine Resin (Questran) 4 gm PO Q8 [facility] Last Admin: 04/08/17 13:14 Dose: 4 gm Clopidogrel Bisulfate (Plavix) 75 mg PO DAILY [facility] Last Admin: 04/08/17 09:03 Dose: 75 mg Diphenhydramine HCl (Benadryl) 12.5 mg PO Q6 PRN PRN Reason: Itching / Pruritus Epoetin Brian (Procrit) 4,000 unit IV MWF [facility] Last Admin: 04/07/17 17:50 Dose: 4,000 unit Ergocalciferol (Drisdol 50,000 Intl Units Cap) 1 cap PO MON [facility] Famotidine (Pepcid) 20 mg PO 2100 [facility] Last Admin: 04/07/17 22:12 Dose: 20 mg Gabapentin (Neurontin) 300 mg PO DAILY [facility] Last Admin: 04/08/17 09:04 Dose: 300 mg Heparin Sodium (Porcine) (Heparin) 5,000 units SC Q12 [facility] PRN Reason: Protocol Last Admin: 04/08/17 09:02 Dose: 5,000 units Hydralazine HCl (Apresoline) 25 mg PO Q8 [facility] Last Admin: 04/08/17 13:16 Dose: 25 mg Insulin Human Regular (Humulin R) 0 units SC ACHS [facility] PRN Reason: Protocol Last Admin: 04/08/17 17:11 Dose: Not Given Isosorbide Mononitrate (Imdur) 60 mg PO DAILY [facility] Last Admin: 04/08/17 09:03 Dose: 60 mg Lactic Acid (Lac-Hydrin 12% Lotion (225 G)) 1 applic TOP Q12 [facility] Last Admin: 04/08/17 12:26 Dose: 1 applic Lactulose (Enulose) 20 gm PO DAILY [facility] Last Admin: 04/08/17 09:02 Dose: Not Given Multivitamins/Minerals (Therapeutic-M Tab) 1 tab PO DAILY [facility] Last Admin: 04/08/17 09:03 Dose: 1 tab Nitroglycerin (Nitrostat Sl Tab) 0.4 mg SL Q5M PRN PRN Reason: Other Rifaximin (Xifaxan) 550 mg PO BID [facility] PRN Reason: Protocol Last Admin: 04/08/17 17:39 Dose: 550 mg Fluticasone/Salmeterol (Advair Diskus 250/50) 1 puff INH Q12 [facility] Last Admin: 04/08/17 12:26 Dose: 1 puff - Labs Labs: 04/04/17 12:00 04/05/17 16:15 PT 17.3 Seconds (9.8-13.1) H 03/18/17 05:20 INR 1.5 (0.9-1.2) H 03/18/17 05:20 APTT 39.1 Seconds (25.6-37.1) H 03/18/17 05:20
[2017-04-09] MEDS: Cholestyramine 4 gm/Pkt UD PO SCH ×3 (06:19→21:42)
[2017-04-09] MEDS: Insulin Regular 100 units/ml SC SCH ×4 (07:09→21:00)
[2017-04-09] MEDS: Fluticasone-Salmeterol 250-50mcg Diskus INH SCH ×2 (08:47→21:16)
[2017-04-09] MEDS: Multivitamin With Minerals Tab PO SCH (08:49)
--- NOTE | 2017-04-09 12:40 | CP.PCM.PN ---
Subjective - Date & Time of Evaluation Date of Evaluation: 04/09/17 Time of Evaluation: 10:00 - Subjective Subjective: Patient seen and examined bedside. Feeling well. Participating with PT. Still with left facial droop , left side weakness and numbness Hemodynamically stable, afebrile Objective - Vital Signs/Intake and Output Vital Signs (last 24 hours): Temp Pulse Resp BP Pulse Ox 96.4 F L 82 18 132/90 99 04/09/17 08:04 04/09/17 08:04 04/09/17 08:04 04/09/17 08:04 04/09/17 08:04 - Medications Medications: Current Medications Acetaminophen (Tylenol 325mg Tab) 650 mg PO Q6 PRN PRN Reason: pain 1-10 Last Admin: 03/30/17 11:52 Dose: 650 mg Aspirin (Ecotrin) 81 mg PO DAILY [facility] Last Admin: 04/09/17 08:49 Dose: 81 mg Atorvastatin Calcium (Lipitor) 20 mg PO HS [facility] Last Admin: 04/08/17 21:36 Dose: 20 mg Calcium Acetate (Phoslo) 667 mg PO TID [facility] Last Admin: 04/09/17 12:36 Dose: 667 mg Cholestyramine Resin (Questran) 4 gm PO Q8 [facility] Last Admin: 04/09/17 06:19 Dose: 4 gm Clopidogrel Bisulfate (Plavix) 75 mg PO DAILY [facility] Last Admin: 04/09/17 08:49 Dose: 75 mg Diphenhydramine HCl (Benadryl) 12.5 mg PO Q6 PRN PRN Reason: Itching / Pruritus Epoetin Brian (Procrit) 4,000 unit IV MWF [facility] Last Admin: 04/07/17 17:50 Dose: 4,000 unit Ergocalciferol (Drisdol 50,000 Intl Units Cap) 1 cap PO MON [facility] Famotidine (Pepcid) 20 mg PO 2100 [facility] Last Admin: 04/08/17 21:37 Dose: 20 mg Gabapentin (Neurontin) 300 mg PO DAILY [facility] Last Admin: 04/09/17 08:49 Dose: 300 mg Heparin Sodium (Porcine) (Heparin) 5,000 units SC Q12 [facility] PRN Reason: Protocol Last Admin: 04/09/17 08:49 Dose: 5,000 units Hydralazine HCl (Apresoline) 25 mg PO Q8 [facility] Last Admin: 04/09/17 06:19 Dose: 25 mg Insulin Human Regular (Humulin R) 0 units SC ACHS [facility] PRN Reason: Protocol Last Admin: 04/09/17 12:36 Dose: 3 unit Isosorbide Mononitrate (Imdur) 60 mg PO DAILY [facility] Last Admin: 04/09/17 08:49 Dose: 60 mg Lactic Acid (Lac-Hydrin 12% Lotion (225 G)) 1 applic TOP Q12 [facility] Last Admin: 04/09/17 08:47 Dose: 1 applic Lactulose (Enulose) 20 gm PO DAILY [facility] Last Admin: 04/09/17 08:49 Dose: Not Given Multivitamins/Minerals (Therapeutic-M Tab) 1 tab PO DAILY [facility] Last Admin: 04/09/17 08:49 Dose: 1 tab Nitroglycerin (Nitrostat Sl Tab) 0.4 mg SL Q5M PRN PRN Reason: Other Rifaximin (Xifaxan) 550 mg PO BID [facility] PRN Reason: Protocol Last Admin: 04/09/17 08:48 Dose: 550 mg Fluticasone/Salmeterol (Advair Diskus 250/50) 1 puff INH Q12 [facility] Last Admin: 04/09/17 08:47 Dose: 1 puff - Labs Labs: 04/04/17 12:00 04/05/17 16:15 PT 17.3 Seconds (9.8-13.1) H 03/18/17 05:20 INR 1.5 (0.9-1.2) H 03/18/17 05:20 APTT 39.1 Seconds (25.6-37.1) H 03/18/17 05:20 - Constitutional Appears: Non-toxic, No Acute Distress - Head Exam Head Exam: ATRAUMATIC, NORMAL INSPECTION, NORMOCEPHALIC - Eye Exam Eye Exam: EOMI, Normal appearance, PERRL Pupil Exam: NORMAL ACCOMODATION - ENT Exam ENT Exam: Mucous Membranes Moist, Normal Exam - Neck Exam Neck Exam: Full ROM, Normal Inspection - Respiratory Exam Respiratory Exam: Clear to Ausculation Bilateral, NORMAL BREATHING PATTERN. absent: Rales, Rhonchi, Wheezes - Cardiovascular Exam Cardiovascular Exam: REGULAR RHYTHM, RRR, +S1, +S2. absent: JVD - GI/Abdominal Exam GI & Abdominal Exam: Soft, Normal Bowel Sounds. absent: Distended, Tenderness, Rebound - Rectal Exam Rectal Exam: Deferred - Extremities Exam Extremities Exam: Full ROM, Normal Capillary Refill, Normal Inspection. 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 He was transferred from the [facility] to the rehab Unit at [facility] for rehabilitation and continued management. At present participating well with PT and showing improvement 1. Acute CVA with left facial droop , slurred speech and left side weakness Consult with Dr Murillo Jig Worker appreciated Continue OT/PT Speech therapy continue aspirin and Plavix, and Lipitor 2. ESRD on HD MWF Consult Dr Mancia Nephrology for Dialysis appreciated Continue PhosLo, calcitriol, Procrit For HD today 3. DM II controlled Regular Insulin sliding scale according to Accucheck 4. CHF on Lasix Isosorbide Mononitrate 5. Cirrhosis continue Rifaximin,Lactulose, cholestyramine 6. COPD Continue Advair 7. Anemia of chronic kidney disease continue Epo 8. DVT prophylaxis Heparin
--- NOTE | 2017-04-09 14:29 | CP.PCM.PN ---
Subjective - Date & Time of Evaluation Date of Evaluation: 04/09/17 Time of Evaluation: 08:00 - Subjective Subjective: no acute complaints at present Objective - Vital Signs/Intake and Output Vital Signs (last 24 hours): Temp Pulse Resp BP Pulse Ox 96.4 F L 82 18 137/81 99 04/09/17 08:04 04/09/17 13:07 04/09/17 08:04 04/09/17 13:07 04/09/17 08:04 - Medications Medications: Current Medications Acetaminophen (Tylenol 325mg Tab) 650 mg PO Q6 PRN PRN Reason: pain 1-10 Last Admin: 03/30/17 11:52 Dose: 650 mg Aspirin (Ecotrin) 81 mg PO DAILY [facility] Last Admin: 04/09/17 08:49 Dose: 81 mg Atorvastatin Calcium (Lipitor) 20 mg PO HS [facility] Last Admin: 04/08/17 21:36 Dose: 20 mg Calcium Acetate (Phoslo) 667 mg PO TID [facility] Last Admin: 04/09/17 12:36 Dose: 667 mg Cholestyramine Resin (Questran) 4 gm PO Q8 [facility] Last Admin: 04/09/17 13:08 Dose: 4 gm Clopidogrel Bisulfate (Plavix) 75 mg PO DAILY [facility] Last Admin: 04/09/17 08:49 Dose: 75 mg Diphenhydramine HCl (Benadryl) 12.5 mg PO Q6 PRN PRN Reason: Itching / Pruritus Epoetin Brian (Procrit) 4,000 unit IV MWF [facility] Last Admin: 04/07/17 17:50 Dose: 4,000 unit Ergocalciferol (Drisdol 50,000 Intl Units Cap) 1 cap PO MON [facility] Famotidine (Pepcid) 20 mg PO 2100 [facility] Last Admin: 04/08/17 21:37 Dose: 20 mg Gabapentin (Neurontin) 300 mg PO DAILY [facility] Last Admin: 04/09/17 08:49 Dose: 300 mg Heparin Sodium (Porcine) (Heparin) 5,000 units SC Q12 [facility] PRN Reason: Protocol Last Admin: 04/09/17 08:49 Dose: 5,000 units Hydralazine HCl (Apresoline) 25 mg PO Q8 [facility] Last Admin: 04/09/17 13:07 Dose: 25 mg Insulin Human Regular (Humulin R) 0 units SC ACHS [facility] PRN Reason: Protocol Last Admin: 04/09/17 12:36 Dose: 3 unit Isosorbide Mononitrate (Imdur) 60 mg PO DAILY [facility] Last Admin: 04/09/17 08:49 Dose: 60 mg Lactic Acid (Lac-Hydrin 12% Lotion (225 G)) 1 applic TOP Q12 [facility] Last Admin: 04/09/17 08:47 Dose: 1 applic Lactulose (Enulose) 20 gm PO DAILY [facility] Last Admin: 04/09/17 08:49 Dose: Not Given Multivitamins/Minerals (Therapeutic-M Tab) 1 tab PO DAILY [facility] Last Admin: 04/09/17 08:49 Dose: 1 tab Nitroglycerin (Nitrostat Sl Tab) 0.4 mg SL Q5M PRN PRN Reason: Other Rifaximin (Xifaxan) 550 mg PO BID [facility] PRN Reason: Protocol Last Admin: 04/09/17 08:48 Dose: 550 mg Fluticasone/Salmeterol (Advair Diskus 250/50) 1 puff INH Q12 [facility] Last Admin: 04/09/17 08:47 Dose: 1 puff - Labs Labs: 04/04/17 12:00 04/05/17 16:15 PT 17.3 Seconds (9.8-13.1) H 03/18/17 05:20 INR 1.5 (0.9-1.2) H 03/18/17 05:20 APTT 39.1 Seconds (25.6-37.1) H 03/18/17 05:20 - Head Exam Head Exam: ATRAUMATIC, NORMAL INSPECTION, NORMOCEPHALIC - Eye Exam Eye Exam: EOMI, Normal appearance, PERRL Pupil Exam: NORMAL ACCOMODATION - ENT Exam ENT Exam: Mucous Membranes Moist, Normal Exam - Neck Exam Neck Exam: Normal Inspection - Respiratory Exam Respiratory Exam: NORMAL BREATHING PATTERN - Cardiovascular Exam Cardiovascular Exam: REGULAR RHYTHM - GI/Abdominal Exam GI & Abdominal Exam: Soft, Normal Bowel Sounds - Rectal Exam Rectal Exam: NORMAL INSPECTION - Exam External exam: NORMAL EXTERNAL EXAM - Extremities Exam Extremities Exam: Normal Capillary Refill, Normal Inspection - Back Exam Back Exam: NORMAL INSPECTION - Neurological Exam Neurological Exam: Alert, Awake Neuro motor strength exam: Left Upper Extremity: 3, Right Upper Extremity: 3, Left Lower Extremity: 3, Right Lower Extremity: 3 - Psychiatric Exam Psychiatric exam: Normal Affect, Normal Mood - Skin Skin Exam: Dry, Intact Assessment and Plan (1) CKD (chronic kidney disease) requiring chronic dialysis Status: Acute (2) Acute renal failure Status: Acute (3) Altered mental status Status: Acute (4) Anasarca Status: Acute (5) Bigeminy Status: Acute (6) CVA (cerebral vascular accident) Assessment & Plan: plan for physical, occupational,rec and speech therapy covering for Dr. Trevizo Status: Acute (7) Chest pain Status: Acute (8) Chest pain Status: Acute
[2017-04-09] MEDS: Epoetin Alfa 4000 UNIT/ML Inj IV SCH (17:18)
[2017-04-10] MEDS: Cholestyramine 4 gm/Pkt UD PO SCH ×3 (05:33→21:18)
[2017-04-10] MEDS: Insulin Regular 100 units/ml SC SCH ×4 (06:30→21:17)
[2017-04-10] MEDS: Fluticasone-Salmeterol 250-50mcg Diskus INH SCH ×2 (09:01→21:15)
[2017-04-10] MEDS: Multivitamin With Minerals Tab PO SCH (09:02)
--- NOTE | 2017-04-10 10:45 | CP.PCM.PN ---
Subjective - Date & Time of Evaluation Date of Evaluation: 04/10/17 Time of Evaluation: 10:43 - Subjective Subjective: seen in acute rehab Objective - Vital Signs/Intake and Output Vital Signs (last 24 hours): Temp Pulse Resp BP Pulse Ox 98.1 F 79 21 139/78 96 04/10/17 08:56 04/10/17 08:56 04/10/17 08:56 04/10/17 08:56 04/10/17 08:56 - Medications Medications: Current Medications Acetaminophen (Tylenol 325mg Tab) 650 mg PO Q6 PRN PRN Reason: pain 1-10 Last Admin: 03/30/17 11:52 Dose: 650 mg Aspirin (Ecotrin) 81 mg PO DAILY [facility] Last Admin: 04/10/17 09:02 Dose: 81 mg Atorvastatin Calcium (Lipitor) 20 mg PO HS [facility] Last Admin: 04/09/17 21:42 Dose: 20 mg Calcium Acetate (Phoslo) 667 mg PO TID [facility] Last Admin: 04/10/17 09:02 Dose: 667 mg Cholestyramine Resin (Questran) 4 gm PO Q8 [facility] Last Admin: 04/10/17 05:33 Dose: 4 gm Clopidogrel Bisulfate (Plavix) 75 mg PO DAILY [facility] Last Admin: 04/10/17 09:03 Dose: 75 mg Diphenhydramine HCl (Benadryl) 12.5 mg PO Q6 PRN PRN Reason: Itching / Pruritus Epoetin Brian (Procrit) 4,000 unit IV MWF [facility] Last Admin: 04/09/17 17:18 Dose: 4,000 unit Ergocalciferol (Drisdol 50,000 Intl Units Cap) 1 cap PO MON [facility] Famotidine (Pepcid) 20 mg PO 2100 [facility] Last Admin: 04/09/17 21:42 Dose: 20 mg Gabapentin (Neurontin) 300 mg PO DAILY [facility] Last Admin: 04/10/17 09:03 Dose: 300 mg Heparin Sodium (Porcine) (Heparin) 5,000 units SC Q12 [facility] PRN Reason: Protocol Last Admin: 04/10/17 09:01 Dose: 5,000 units Hydralazine HCl (Apresoline) 25 mg PO Q8 [facility] Last Admin: 04/10/17 05:33 Dose: 25 mg Insulin Human Regular (Humulin R) 0 units SC ACHS [facility] PRN Reason: Protocol Last Admin: 04/10/17 06:30 Dose: Not Given Isosorbide Mononitrate (Imdur) 60 mg PO DAILY [facility] Last Admin: 04/10/17 09:01 Dose: 60 mg Lactic Acid (Lac-Hydrin 12% Lotion (225 G)) 1 applic TOP Q12 [facility] Last Admin: 04/10/17 09:00 Dose: 1 applic Lactulose (Enulose) 20 gm PO DAILY [facility] Last Admin: 04/10/17 09:02 Dose: 20 gm Multivitamins/Minerals (Therapeutic-M Tab) 1 tab PO DAILY [facility] Last Admin: 04/10/17 09:02 Dose: 1 tab Nitroglycerin (Nitrostat Sl Tab) 0.4 mg SL Q5M PRN PRN Reason: Other Rifaximin (Xifaxan) 550 mg PO BID [facility] PRN Reason: Protocol Last Admin: 04/10/17 09:02 Dose: 550 mg Fluticasone/Salmeterol (Advair Diskus 250/50) 1 puff INH Q12 [facility] Last Admin: 04/10/17 09:01 Dose: 1 puff - Labs Labs: 04/04/17 12:00 04/05/17 16:15 PT 17.3 Seconds (9.8-13.1) H 03/18/17 05:20 INR 1.5 (0.9-1.2) H 03/18/17 05:20 APTT 39.1 Seconds (25.6-37.1) H 03/18/17 05:20 - Constitutional Appears: Non-toxic - Head Exam Head Exam: ATRAUMATIC - Eye Exam Eye Exam: Normal appearance - ENT Exam ENT Exam: Mucous Membranes Moist - Neck Exam Neck Exam: Normal Inspection - Respiratory Exam Respiratory Exam: NORMAL BREATHING PATTERN - Cardiovascular Exam Cardiovascular Exam: +S1, +S2 - GI/Abdominal Exam GI & Abdominal Exam: Soft - Extremities Exam Additional comments: no edema - Neurological Exam Additional comments: follows commands - Psychiatric Exam Psychiatric exam: Normal Affect - Skin Skin Exam: Normal Color Assessment and Plan - Assessment and Plan (Free Text) Assessment: esrd / htn /cva / anemia of renal disease / hyper phosphatemia plan: hd mon check phos next week on epo bp well controlled
--- NOTE | 2017-04-10 16:04 | PN ---
NEUROLOGY PROGRESS NOTE DATE: SUBJECTIVE: The patient is lying on the bed, in no acute distress. Denies having any headache or dizziness. PHYSICAL EXAMINATION: VITAL SIGNS: His blood pressure is 131/76, heart rate 83 per minute, breathing at the rate of 16 per minute, temperature is 98.1 degrees Fahrenheit. HEENT: Head is normocephalic, atraumatic. NECK: Supple. There are no carotid bruits. LUNGS: Clear. CARDIOVASCULAR SYSTEM: S1 and S2 are audible. No murmurs. ABDOMEN: Soft and nontender. Bowel sounds are present. NEUROLOGY: Mental status: The patient is awake and alert, oriented to place, year and person. Speech is mildly dysarthric. Naming and repetition are normal. Cranial nerve examination: Pupils 2 mm, minimally reactive to light. Extraocular movements are intact. There is decreased nasolabial fold on the left side. Motor examination: Tone is normal. There is mild left hemiparesis. Power is -5/5. Plantars downgoing bilaterally. [id number] shows no dysmetria. IMPRESSION: 1. Cerebrovascular accident with right basal ganglia infarct causing left hemiparesis and dysarthria. 2. End-stage renal disease, on hemodialysis. RECOMMENDATIONS: 1. The patient has shown improvement in his left-sided weakness. 2. The patient to be continued on aspirin and Plavix. 3. The patient also to be continued on statin. 4. The patient's blood pressure is well controlled. 5. Please continue supportive care and other treatment and to continue physical therapy. Thank you for the opportunity to participate in the care of this patient. Tom Eller MD
[2017-04-10 20:32] VITALS: RESP 20
[2017-04-11] MEDS: Cholestyramine 4 gm/Pkt UD PO SCH ×3 (06:13→21:17)
[2017-04-11] MEDS: Insulin Regular 100 units/ml SC SCH ×4 (06:35→21:16)
[2017-04-11] MEDS: Fluticasone-Salmeterol 250-50mcg Diskus INH SCH ×2 (08:52→21:14)
[2017-04-11] MEDS: Multivitamin With Minerals Tab PO SCH (08:54)
[2017-04-12] MEDS: Insulin Regular 100 units/ml SC SCH ×4 (06:44→21:41)
[2017-04-12] MEDS: Cholestyramine 4 gm/Pkt UD PO SCH ×3 (06:44→21:31)
--- NOTE | 2017-04-12 08:38 | PN ---
DATE: PHYSIATRY PROGRESS NOTE SUBJECTIVE: The patient is a 51-year-old male, getting therapy, admitted for acute inpatient rehab program. No acute complaints at present. PHYSICAL EXAMINATION: VITAL SIGNS: Stable. NECK: Supple. CHEST: Symmetrical. HEART: Sounds S1 and S2. ABDOMEN: Area is benign. EXTREMITIES: No clubbing, cyanosis, or edema. IMPRESSION: Acute cerebrovascular accident, ICD code of 01.1, history of anemia, hypocholesteremia, end-stage renal disease, congestive heart failure. PLAN: For physical therapy, occupational therapy, recreational therapy, speech therapy, full range of motion, strengthening, transverse ambulation, gait training. Again, continue acute rehab. Steve Bartholomew MD
[2017-04-12] MEDS: Multivitamin With Minerals Tab PO SCH (08:50)
[2017-04-12] MEDS ORDERED: Ergocalciferol 50,000 Intl Units Cap PO SCH (09:00)
[2017-04-12] MEDS: Fluticasone-Salmeterol 250-50mcg Diskus INH SCH ×3 (12:26→21:30)
--- NOTE | 2017-04-12 12:28 | CP.PCM.PN ---
Subjective - Date & Time of Evaluation Date of Evaluation: 04/12/17 Time of Evaluation: 12:00 - Subjective Subjective: Patient was seen and examined today. He is sitting in chair in his room undergoing speech therapy. He is noticed to have marked improvement in his speech since last week. He has no complaints today. Cooperating with PT/ST/OT well. Denies cp, sob, palpitations, headache, dizziness. Objective - Vital Signs/Intake and Output Vital Signs (last 24 hours): Temp Pulse Resp BP Pulse Ox 96.8 F L 78 20 143/89 100 04/12/17 07:43 04/12/17 07:43 04/12/17 07:43 04/12/17 07:43 04/12/17 07:43 - Medications Medications: Current Medications Acetaminophen (Tylenol 325mg Tab) 650 mg PO Q6 PRN PRN Reason: pain 1-10 Last Admin: 04/11/17 11:30 Dose: 650 mg Aspirin (Ecotrin) 81 mg PO DAILY [facility] Last Admin: 04/12/17 08:50 Dose: 81 mg Atorvastatin Calcium (Lipitor) 20 mg PO HS [facility] Last Admin: 04/11/17 21:14 Dose: 20 mg Calcium Acetate (Phoslo) 667 mg PO TID [facility] Last Admin: 04/12/17 12:12 Dose: 667 mg Cholestyramine Resin (Questran) 4 gm PO Q8 [facility] Last Admin: 04/12/17 06:44 Dose: 4 gm Clopidogrel Bisulfate (Plavix) 75 mg PO DAILY [facility] Last Admin: 04/12/17 08:51 Dose: 75 mg Diphenhydramine HCl (Benadryl) 12.5 mg PO Q6 PRN PRN Reason: Itching / Pruritus Epoetin Brian (Procrit) 4,000 unit IV MWF [facility] Last Admin: 04/09/17 17:18 Dose: 4,000 unit Ergocalciferol (Drisdol 50,000 Intl Units Cap) 1 cap PO MON [facility] Last Admin: 04/12/17 08:50 Dose: 1 cap Famotidine (Pepcid) 20 mg PO 2100 [facility] Last Admin: 04/11/17 21:14 Dose: 20 mg Gabapentin (Neurontin) 300 mg PO DAILY [facility] Last Admin: 04/12/17 08:52 Dose: 300 mg Heparin Sodium (Porcine) (Heparin) 5,000 units SC Q12 [facility] PRN Reason: Protocol Last Admin: 04/12/17 08:53 Dose: 5,000 units Hydralazine HCl (Apresoline) 25 mg PO Q8 [facility] Last Admin: 04/12/17 06:44 Dose: 25 mg Insulin Human Regular (Humulin R) 0 units SC ACHS [facility] PRN Reason: Protocol Last Admin: 04/12/17 12:10 Dose: 3 unit Isosorbide Mononitrate (Imdur) 60 mg PO DAILY [facility] Last Admin: 04/12/17 08:51 Dose: 60 mg Lactic Acid (Lac-Hydrin 12% Lotion (225 G)) 1 applic TOP Q12 [facility] Last Admin: 04/12/17 08:52 Dose: 1 applic Lactulose (Enulose) 20 gm PO DAILY [facility] Last Admin: 04/12/17 08:54 Dose: 20 gm Multivitamins/Minerals (Therapeutic-M Tab) 1 tab PO DAILY [facility] Last Admin: 04/12/17 08:50 Dose: 1 tab Nitroglycerin (Nitrostat Sl Tab) 0.4 mg SL Q5M PRN PRN Reason: Other Rifaximin (Xifaxan) 550 mg PO BID [facility] PRN Reason: Protocol Last Admin: 04/12/17 08:50 Dose: 550 mg Fluticasone/Salmeterol (Advair Diskus 250/50) 1 puff INH Q12 [facility] Last Admin: 04/11/17 21:14 Dose: 1 puff - Labs Labs: 04/04/17 12:00 04/05/17 16:15 PT 17.3 Seconds (9.8-13.1) H 03/18/17 05:20 INR 1.5 (0.9-1.2) H 03/18/17 05:20 APTT 39.1 Seconds (25.6-37.1) H 03/18/17 05:20 - Additional Findings Additional findings: Physical exam: Constitutional- cooperative, awake, alert. Head- NCAT, PERRL Eye- PERRL, normal accommodation ENT- normal exam, MMM. Neck- normal inspection, supple, no JVD Respiratory- CTAB, no wheezes rales rhonchi Cardiovascular- RRR, +S1, +S2 no MRG GI/Abdominal- normal bowel sounds, soft, no mass, no hsm Skin- warm, dry Extremities Exam- normal capillary refill, normal inspection Neurological Exam- left sided facial droop. Left sided weakness; improved. Alert Psych- normal mood, normal affect Assessment and Plan - Assessment and Plan (Free Text) Plan: Assessment: 51 years old male with hx of DM II, HTN, Cirrhosis and ESRD on Hemo-dialysis MWF was diagnosed with acute CVA 03/12/17 with left hemiparesis and slurred speech . He was transferred from the [facility] to the rehab Unit at [facility] for rehabilitation and continued management. At present participating well with PT and showing improvement 1. Acute CVA with left facial droop , slurred speech and left side weakness Consult with Dr Murillo Magnet Valve Assembler appreciated Continue OT/PT Speech therapy continue aspirin and Plavix, and Lipitor 2. ESRD on HD MWF Consult Dr Mancia Nephrology for Dialysis appreciated Continue PhosLo, calcitriol, Procrit For HD today 3. DM II controlled Regular Insulin sliding scale according to Accucheck 4. CHF on Lasix Isosorbide Mononitrate 5. Cirrhosis continue Rifaximin,Lactulose, cholestyramine 6. COPD Continue Advair 7. Anemia of chronic kidney disease continue Epo 8. DVT prophylaxis Heparin
--- NOTE | 2017-04-12 13:16 | PSY.TMCNF ---
Nursing - Vital Signs Vital Signs (Last 8 hours): Vital Signs 04/12/17 04/12/17 06:44 07:43 Temperature 96.8 F L Pulse Rate 81 78 Respiratory 20 Rate Blood Pressure 137/90 143/89 O2 Sat by Pulse 100 Oximetry Pain: 0 - Precautions: Precautions: Fall Prevention - Medications/Other Issues Comment: Pt at high nutritional risk. goals: 1. Pt to consume 75-100% of meals (met, continue). 2. Blood glucoses to be between 70-180 mg/dl(partially met, continue). 3. K+ WNL(not met, continue). Follow-up due on 04/13/2017. [ End ] - Consults Comment: DR Mancia, Dr. Murillo, Dr. Eller. - Toileting Toileting: Maximal Assistance - Bladder Management Bladder Pattern: Normal Voiding Method: Toilet - Bowel Management Bowel Pattern: Normal Bowel Management: Supervision Frequency of Accidents: 0 - Transfers Transfers: Moderate Assistance - ADL's ADL's: Maximal Assistance - Patient/Family Teaching Comments: CARE POST CVA AND SAFETY PRECAUTIONS - Goals/Time Frame Comments: PER MULTIDISCIPLINARY CARE PLAN GOALS - Provider Provider: THERESA GUEVARAN RN CRRN Physical Therapy - Bed Mobility Bed Mobility: Supervision - Transfers Wheelchair to Mat: Contact Guard Sit to Stand: Supervision, Contact Guard - Ambulation Level of Assistance: Contact Guard Distance (ft.): 100 Assistive Devices: Rolling Walker - Stair Negotiation Stairs: Level of Assistance: Moderate Assistance Number of Stairs: 3 Handrails: Bilateral - Standing Balance Static Stand: Supervision Dynamic Stand: Minimal Assistance - Pain Comment: Pt complains of intermittent L knee pain, doctor and RN aware - Insight/Carryover Insight/Carryover: Good - Patient/Family Education Comment: Recovery after CVA, role of OT and rehab, SROM, compensatory strategies with ADLs and ADL transfers - Assessment/Plan Assessment: Recommend continued OT services 5-6x/week to maximize LUE function and increase independence with ADLs and functional mo - Goals Timeframe: 1 week Goals: S LE dressing. S bathing. S ADL transfers. MOD I grooming - Provider Therapist: Anabel Eisenberg PT DPT License Number: [id number] Occupational Therapy - Arousal/Attention/Orientation Level of Consciousness: Awake, Alert Patient Orientation: Person, Place, Time - ADL/IADL Self Feeding: Modified Independent Grooming: Supervision, Verbal Cues, Set-up Help Bathing-Upper Extremity: Supervision, Verbal Cues, Set-up Help Bathing-Lower Extremity: Supervision, Verbal Cues, Set-up Help, Minimal Assistance Dressing-Upper Extremity: Supervision, Verbal Cues, Set-up Help Dressing-Lower Extremity: Verbal Cues, Set-up Help, Minimal Assistance - Sitting Balance Static Sitting: Independent with upper extremity support Dynamic Sitting: Requires supervision - Transfers Wheelchair to Bed Transfers: Verbal Cues, Set-up Help, Minimal Assistance Toilet Transfers: Verbal Cues, Set-up Help, Minimal Assistance Tub Transfers: Verbal Cues, Set-up Help, Minimal Assistance - Wheelchair Management Level of Assistance: Verbal Cues, Set-up Help, Moderate Assistance Distance (ft.): 25 - Upper Extremity Status Right Upper Extremity Comment: ROM and strength WFL Left Upper Extremity Comment: AROM WFL with exception to shoulder flexion, AROM approx 120' flexion, MMT grossly 3+/5 - Pain Comment: Pt complains of intermittent L knee pain, doctor and RN aware - Insight/Carryover Insight/Carryover: Good - Patient/Family Education Comment: Recovery after CVA, role of OT and rehab, SROM, compensatory strategies with ADLs and ADL transfers - Assessment/Plan Assessment: Recommend continued OT services 5-6x/week to maximize LUE function and increase independence with ADLs and functional mo - Goals Timeframe: 1 week Goals: S LE dressing. S bathing. S ADL transfers. MOD I grooming - Provider Therapist: Yamila Mojica License Number: [id number] Speech Therapy - Consult Information Patient on Program: Yes Medical Diagnosis: CVA Treatment Diagnosis: -mild dysarthria. -minimal-mild oral dysphagia - Assessment Speech/Articulation Impairment: Mild Dysphagia/Swallowing Impairment: Mild Comment: minimal-mild oral dysphagia; on regular solids/thin liquids - Plan Assessment: Recommend continued OT services 5-6x/week to maximize LUE function and increase independence with ADLs and functional mo - Provider Therapist: Davida Hensley License Number: [id number] Recreational Therapy - Participation Participation: Participates in Individual and/or Group Sessions - Attendance Attendance: 3-5 times per week - Activities Leisure Activities: Cards and Games - Socialization Level of Socialization: Initiates/interacts freely with care givers and peer - Diversional Time Diversional Time: listening to music, enjoys playing cards and dominoes - Assessment Assessment/Plan: Recommend continued OT services 5-6x/week to maximize LUE function and increase independence with ADLs and functional mo - Provider Therapist: Ashley Jin, [employer]ATER #[id number] Nutrition - Current Diet Current Diet/ Supplement/ Feedings: Heart healthy moderate consistent CHO renal dialysis 1200 ml fluid restriction thin liquids - Appetite Percent Meal Consumed: 75-100% - Comments Comments: CARE POST CVA AND SAFETY PRECAUTIONS - Assessment/Goals/Time Frame Assessment/Goals/Time Frame: Pt at high nutritional risk. goals: 1. Pt to consume 75-100% of meals(met, continue). 2. Blood glucoses to be between 70- 180 mg/dl(partially met, continue). 3. K+ WNL(not met, continue). Follow-up due on 04/13/2017. [ End ] - Provider Provider: Dari Burnett RD Case Management - Psychosocial Assessment Support Systems: Patient's sister Chetna- [phone] Psychological Interventions/Needs: Patient is alert and oriented x3 and able to verbalize needs Discharge Concerns: Patient currently requiring CG-min A for functional mobility Patient/Family Meeting: CM met with patient and rehab team Intervention/Goal/Outcome:: 1. Goal: 24 hour supervision/assist overall. 2. Plan : Home with VNS and family support- caregiver training completed, family verbalizes patient has improved functionally from his status at home. 3. refer to [facility] for home therapy and to reinstatement homemaker services. 5. DME needs - w/c? 6.continued caregiver training. 7. continued stay auth, LAD: 04/10- updates to be faxed on 04/09. 8. Tentative discharge date: 04/13 - Discharge Plan Discharge Plan: Home with services Home Services: [facility] - Provider Provider: RAYMUNDO Marino, [employer]ER License Number: [id number] Rehabilitation Plan - Treatment Plan Treatment Plan: Physical Therapy, Occupational Therapy, Speech, Dietary, Patient /Family Education - Recommendation Recommendation: Physical Therapy, Occupational Therapy, Speech, Dietary - Discharge Plan Discharge to: Home (Ri alonso)
--- NOTE | 2017-04-12 14:27 | CP.PCM.PN ---
Subjective - Date & Time of Evaluation Date of Evaluation: 04/12/17 Time of Evaluation: 09:00 - Subjective Subjective: yoandy has no complaints at present Objective - Vital Signs/Intake and Output Vital Signs (last 24 hours): Temp Pulse Resp BP Pulse Ox 96.8 F L 78 20 141/87 100 04/12/17 07:43 04/12/17 14:15 04/12/17 07:43 04/12/17 14:15 04/12/17 07:43 - Medications Medications: Current Medications Acetaminophen (Tylenol 325mg Tab) 650 mg PO Q6 PRN PRN Reason: pain 1-10 Last Admin: 04/11/17 11:30 Dose: 650 mg Aspirin (Ecotrin) 81 mg PO DAILY [facility] Last Admin: 04/12/17 08:50 Dose: 81 mg Atorvastatin Calcium (Lipitor) 20 mg PO HS [facility] Last Admin: 04/11/17 21:14 Dose: 20 mg Calcium Acetate (Phoslo) 667 mg PO TID [facility] Last Admin: 04/12/17 12:12 Dose: 667 mg Cholestyramine Resin (Questran) 4 gm PO Q8 [facility] Last Admin: 04/12/17 14:18 Dose: 4 gm Clopidogrel Bisulfate (Plavix) 75 mg PO DAILY [facility] Last Admin: 04/12/17 08:51 Dose: 75 mg Diphenhydramine HCl (Benadryl) 12.5 mg PO Q6 PRN PRN Reason: Itching / Pruritus Epoetin Brian (Procrit) 4,000 unit IV MWF [facility] Last Admin: 04/09/17 17:18 Dose: 4,000 unit Ergocalciferol (Drisdol 50,000 Intl Units Cap) 1 cap PO MON [facility] Last Admin: 04/12/17 08:50 Dose: 1 cap Famotidine (Pepcid) 20 mg PO 2100 [facility] Last Admin: 04/11/17 21:14 Dose: 20 mg Gabapentin (Neurontin) 300 mg PO DAILY [facility] Last Admin: 04/12/17 08:52 Dose: 300 mg Heparin Sodium (Porcine) (Heparin) 5,000 units SC Q12 [facility] PRN Reason: Protocol Last Admin: 04/12/17 08:53 Dose: 5,000 units Hydralazine HCl (Apresoline) 25 mg PO Q8 [facility] Last Admin: 04/12/17 14:15 Dose: 25 mg Insulin Human Regular (Humulin R) 0 units SC ACHS [facility] PRN Reason: Protocol Last Admin: 04/12/17 12:10 Dose: 3 unit Isosorbide Mononitrate (Imdur) 60 mg PO DAILY [facility] Last Admin: 04/12/17 08:51 Dose: 60 mg Lactic Acid (Lac-Hydrin 12% Lotion (225 G)) 1 applic TOP Q12 [facility] Last Admin: 04/12/17 08:52 Dose: 1 applic Lactulose (Enulose) 20 gm PO DAILY [facility] Last Admin: 04/12/17 08:54 Dose: 20 gm Multivitamins/Minerals (Therapeutic-M Tab) 1 tab PO DAILY [facility] Last Admin: 04/12/17 08:50 Dose: 1 tab Nitroglycerin (Nitrostat Sl Tab) 0.4 mg SL Q5M PRN PRN Reason: Other Rifaximin (Xifaxan) 550 mg PO BID [facility] PRN Reason: Protocol Last Admin: 04/12/17 08:50 Dose: 550 mg Fluticasone/Salmeterol (Advair Diskus 250/50) 1 puff INH Q12 [facility] Last Admin: 04/12/17 12:27 Dose: 1 puff - Labs Labs: 04/04/17 12:00 04/05/17 16:15 PT 17.3 Seconds (9.8-13.1) H 03/18/17 05:20 INR 1.5 (0.9-1.2) H 03/18/17 05:20 APTT 39.1 Seconds (25.6-37.1) H 03/18/17 05:20 - Head Exam Head Exam: ATRAUMATIC, NORMAL INSPECTION, NORMOCEPHALIC - Eye Exam Eye Exam: EOMI, Normal appearance, PERRL Pupil Exam: NORMAL ACCOMODATION - ENT Exam ENT Exam: Mucous Membranes Moist, Normal Exam - Neck Exam Neck Exam: Normal Inspection - Respiratory Exam Respiratory Exam: NORMAL BREATHING PATTERN - Cardiovascular Exam Cardiovascular Exam: REGULAR RHYTHM - GI/Abdominal Exam GI & Abdominal Exam: Normal Bowel Sounds - Rectal Exam Rectal Exam: NORMAL INSPECTION - Exam External exam: NORMAL EXTERNAL EXAM - Extremities Exam Extremities Exam: Normal Capillary Refill, Normal Inspection - Back Exam Back Exam: NORMAL INSPECTION - Neurological Exam Neurological Exam: Alert, Awake Neuro motor strength exam: Left Upper Extremity: 3, Right Upper Extremity: 3, Left Lower Extremity: 3, Right Lower Extremity: 3 - Psychiatric Exam Psychiatric exam: Normal Affect, Normal Mood - Skin Skin Exam: Dry, Intact, Normal Color Assessment and Plan (1) CKD (chronic kidney disease) requiring chronic dialysis Status: Acute (2) Acute renal failure Status: Acute (3) Altered mental status Status: Acute (4) Anasarca Status: Acute (5) Bigeminy Status: Acute (6) CVA (cerebral vascular accident) Assessment & Plan: PT, Ot , REc and speech covering for Dr. Lidia denny team conference Status: Acute (7) Chest pain Status: Acute (8) Chest pain Status: Acute
[2017-04-12] MEDS: Epoetin Alfa 4000 UNIT/ML Inj IV SCH (15:22)
[2017-04-12 15:57] LABS: BASO # 0.1 K/uL (0.0-0.2); BASO % 1.7 % (0.0-2.0); EOS # 0.2 K/uL (0.0-0.7); EOS % 5.3 % (0.0-4.0); HEMATOCRIT 30.2 % (35.0-51.0); LYMPH # 0.9 K/uL (1.0-4.3); LYMPH % 19.1 % (20.0-40.0); MEAN CELL VOLUME 92.1 fl (80.0-94.0); MEAN CORPUSCULAR HEMOGLOBIN 29.9 pg (27.0-31.0); MEAN CORPUSCULAR HGB CONC 32.4 g/dL (33.0-37.0); MEAN PLATELET VOLUME 10.9 fl (7.2-11.7); MONO # 0.8 K/uL (0.0-0.8); MONO % 17.7 % (0.0-10.0); NEUT # 2.7 K/uL (1.8-7.0); NEUT % 56.2 % (50.0-75.0); NRBC % 0.1 % (0.0-0.0); RED CELL DISTRIBUTION WIDTH 15.2 % (11.5-14.5); WHITE BLOOD COUNT 4.7 K/uL (4.8-10.8)
--- NOTE | 2017-04-12 16:09 | CP.PCM.PN ---
Subjective - Date & Time of Evaluation Date of Evaluation: 04/12/17 Time of Evaluation: 16:08 - Subjective Subjective: Follow up Nephrology Consultation Note Assessment: Stable Diabetic chronic Kidney Disease (E11.22) Hypertensive Chronic Kidney Disease (I12.0) End stage renal disease (N18.6) dependence on hemodialysis (Z99.2) MWF) via AVF Anemia (D64.9), Hyperphosphatemia (E83.39), Secondary Hyperparathyroidism (E21.1 ), HTN (I12.0) s/p CVA Plan: for dialysis today as ordered. Continue with Nephrovite 1 tab/day. repeat labs today. PRBC as needed for anemia. On RUSLAN as epogen 4000 unit with HD Continue with phos binders no VDRA. Last PTH level 63. on vit D supplements BP control with meds as ordered. Patient not on RAAS [place] but may add if BP high Glycemic control, Dialysis consistent diet Further work up/management as per primary team Dose meds/antibiotics (if needed) for ESRD status. Avoid fleets enema/magnesium based laxatives. Thanks for allowing me to participate in care of your patient. Will follow patient with you. Please call if any Qs Dr Cuong Shaikh Office: [phone] Subjective: Noted events overnight. Patients feels okay. Denies chest pain, palpitation, shortness of breath, leg swelling. No urinary complaints Physical Examination: General Appearance: Comfortable, in no acute respiratory distress, co- operative. Vitals reviewed and noted as below Lungs: Normal respiratory rate/effort. Breath sounds bilateral equal and clear Heart: Normal rate. s1s2 normal. No rub or gallop. Extremities: no edema. Neurological: Patient is alert, awake and oriented to person, place and time. weakness improving.. Strength bilateral appropriate and equal Skin: Warm and dry. Normal turgor. No rash. Palpitation: Normal elasticity for age Abdomen: Abdomen is soft. Bowel sounds +. There is no abdominal tenderness, no guarding/rigidity or organomegaly : kidney or bladder not palpable Access: AVF Labs/imaging reviewed. Past medical history, past surgical history, family history, social history, allergy reviewed Objective - Vital Signs/Intake and Output Vital Signs (last 24 hours): Temp Pulse Resp BP Pulse Ox 96.8 F L 78 20 141/87 100 11/20/17 07:43 04/12/17 14:15 04/12/17 07:43 04/12/17 14:15 04/12/17 07:43 - Medications Medications: Current Medications Acetaminophen (Tylenol 325mg Tab) 650 mg PO Q6 PRN PRN Reason: pain 1-10 Last Admin: 04/11/17 11:30 Dose: 650 mg Aspirin (Ecotrin) 81 mg PO DAILY [facility] Last Admin: 04/12/17 08:50 Dose: 81 mg Atorvastatin Calcium (Lipitor) 20 mg PO HS [facility] Last Admin: 04/11/17 21:14 Dose: 20 mg Calcium Acetate (Phoslo) 667 mg PO TID [facility] Last Admin: 04/12/17 12:12 Dose: 667 mg Cholestyramine Resin (Questran) 4 gm PO Q8 [facility] Last Admin: 04/12/17 14:18 Dose: 4 gm Clopidogrel Bisulfate (Plavix) 75 mg PO DAILY [facility] Last Admin: 04/12/17 08:51 Dose: 75 mg Diphenhydramine HCl (Benadryl) 12.5 mg PO Q6 PRN PRN Reason: Itching / Pruritus Epoetin Brian (Procrit) 4,000 unit IV MWF [facility] Last Admin: 04/12/17 15:22 Dose: 4,000 unit Ergocalciferol (Drisdol 50,000 Intl Units Cap) 1 cap PO MON [facility] Last Admin: 04/12/17 08:50 Dose: 1 cap Famotidine (Pepcid) 20 mg PO 2100 [facility] Last Admin: 04/11/17 21:14 Dose: 20 mg Gabapentin (Neurontin) 300 mg PO DAILY [facility] Last Admin: 04/12/17 08:52 Dose: 300 mg Heparin Sodium (Porcine) (Heparin) 5,000 units SC Q12 [facility] PRN Reason: Protocol Last Admin: 04/12/17 08:53 Dose: 5,000 units Hydralazine HCl (Apresoline) 25 mg PO Q8 [facility] Last Admin: 04/12/17 14:15 Dose: 25 mg Insulin Human Regular (Humulin R) 0 units SC ACHS [facility] PRN Reason: Protocol Last Admin: 04/12/17 12:10 Dose: 3 unit Isosorbide Mononitrate (Imdur) 60 mg PO DAILY [facility] Last Admin: 04/12/17 08:51 Dose: 60 mg Lactic Acid (Lac-Hydrin 12% Lotion (225 G)) 1 applic TOP Q12 [facility] Last Admin: 04/12/17 08:52 Dose: 1 applic Lactulose (Enulose) 20 gm PO DAILY [facility] Last Admin: 04/12/17 08:54 Dose: 20 gm Multivitamins/Minerals (Therapeutic-M Tab) 1 tab PO DAILY [facility] Last Admin: 04/12/17 08:50 Dose: 1 tab Nitroglycerin (Nitrostat Sl Tab) 0.4 mg SL Q5M PRN PRN Reason: Other Rifaximin (Xifaxan) 550 mg PO BID [facility] PRN Reason: Protocol Last Admin: 04/12/17 08:50 Dose: 550 mg Fluticasone/Salmeterol (Advair Diskus 250/50) 1 puff INH Q12 [facility] Last Admin: 04/12/17 12:27 Dose: 1 puff - Labs Labs: 04/12/17 15:50 04/05/17 16:15 PT 17.3 Seconds (9.8-13.1) H 03/18/17 05:20 INR 1.5 (0.9-1.2) H 03/18/17 05:20 APTT 39.1 Seconds (25.6-37.1) H 03/18/17 05:20
[2017-04-12 16:58] LABS: CALCIUM 9.1 mg/dL (8.4-10.2); PHOSPHOROUS 8.2 mg/dl (2.5-4.5); POTASSIUM 5.5 MMOL/L (3.6-5.0)
[2017-04-13] MEDS: Cholestyramine 4 gm/Pkt UD PO SCH (06:26)
[2017-04-13 06:28] VITALS: PULSE 84
[2017-04-13] MEDS: Insulin Regular 100 units/ml SC SCH ×2 (06:30→13:13)
[2017-04-13] MEDS: Fluticasone-Salmeterol 250-50mcg Diskus INH SCH (08:13)
[2017-04-13] MEDS: Multivitamin With Minerals Tab PO SCH (08:14)
--- NOTE | 2017-04-13 10:41 | CP.PCM.PN ---
Subjective - Date & Time of Evaluation Date of Evaluation: 04/13/17 Time of Evaluation: 10:40 - Subjective Subjective: Follow up Nephrology Consultation Note Assessment: Stable Diabetic chronic Kidney Disease (E11.22) Hypertensive Chronic Kidney Disease (I12.0) End stage renal disease (N18.6) dependence on hemodialysis (Z99.2) MWF) via AVF Anemia (D64.9), Hyperphosphatemia (E83.39), Secondary Hyperparathyroidism (E21.1 ), HTN (I12.0) s/p CVA Plan: for dialysis today as outpt at [facility] s/p d/c today. pt will be TTS schedule next week but today and wednesday this week. Continue with Nephrovite 1 tab/day. PRBC as needed for anemia. On RUSLAN as epogen 4000 unit with HD Continue with phos binders no VDRA. Last PTH level 63. on vit D supplements BP control with meds as ordered. Patient not on RAAS [place] but may add if BP high Glycemic control, Dialysis consistent diet Further work up/management as per primary team Dose meds/antibiotics (if needed) for ESRD status. Avoid fleets enema/magnesium based laxatives. Thanks for allowing me to participate in care of your patient. Will follow patient with you. Please call if any Qs. pt stable for d/c from renal perspective Dr Cuong Shaikh Office: [phone] Subjective: Noted events overnight. Patients feels okay. Denies chest pain, palpitation, shortness of breath, leg swelling. No urinary complaints. planned for d/c home today Physical Examination: General Appearance: Comfortable, in no acute respiratory distress, co- operative. Vitals reviewed and noted as below Lungs: Normal respiratory rate/effort. Breath sounds bilateral equal and clear Heart: Normal rate. s1s2 normal. No rub or gallop. Extremities: no edema. Neurological: Patient is alert, awake and oriented to person, place and time. weakness improving.. Strength bilateral appropriate and equal Skin: Warm and dry. Normal turgor. No rash. Palpitation: Normal elasticity for age Abdomen: Abdomen is soft. Bowel sounds +. There is no abdominal tenderness, no guarding/rigidity or organomegaly : kidney or bladder not palpable Access: AVF Labs/imaging reviewed. Past medical history, past surgical history, family history, social history, allergy reviewed Objective - Vital Signs/Intake and Output Vital Signs (last 24 hours): Temp Pulse Resp BP Pulse Ox 97.2 F L 84 20 141/84 96 04/12/17 19:44 04/13/17 06:27 04/12/17 19:44 04/13/17 06:27 04/12/17 19:44 - Medications Medications: Current Medications Acetaminophen (Tylenol 325mg Tab) 650 mg PO Q6 PRN PRN Reason: pain 1-10 Last Admin: 04/11/17 11:30 Dose: 650 mg Aspirin (Ecotrin) 81 mg PO DAILY [facility] Last Admin: 04/13/17 08:17 Dose: 81 mg Atorvastatin Calcium (Lipitor) 20 mg PO HS [facility] Last Admin: 04/12/17 21:33 Dose: 20 mg Cholestyramine Resin (Questran) 4 gm PO Q8 [facility] Last Admin: 04/13/17 06:26 Dose: 4 gm Clopidogrel Bisulfate (Plavix) 75 mg PO DAILY [facility] Last Admin: 04/13/17 08:17 Dose: 75 mg Diphenhydramine HCl (Benadryl) 12.5 mg PO Q6 PRN PRN Reason: Itching / Pruritus Epoetin Brian (Procrit) 4,000 unit IV MWF [facility] Last Admin: 04/12/17 15:22 Dose: 4,000 unit Ergocalciferol (Drisdol 50,000 Intl Units Cap) 1 cap PO MON [facility] Last Admin: 04/12/17 08:50 Dose: 1 cap Famotidine (Pepcid) 20 mg PO 2100 [facility] Last Admin: 04/12/17 21:32 Dose: 20 mg Gabapentin (Neurontin) 300 mg PO DAILY [facility] Last Admin: 04/13/17 08:15 Dose: 300 mg Heparin Sodium (Porcine) (Heparin) 5,000 units SC Q12 [facility] PRN Reason: Protocol Last Admin: 04/13/17 08:17 Dose: 5,000 units Hydralazine HCl (Apresoline) 25 mg PO Q8 [facility] Last Admin: 04/13/17 06:27 Dose: 25 mg Insulin Human Regular (Humulin R) 0 units SC ACHS [facility] PRN Reason: Protocol Last Admin: 04/13/17 06:30 Dose: Not Given Isosorbide Mononitrate (Imdur) 60 mg PO DAILY [facility] Last Admin: 04/13/17 08:16 Dose: 60 mg Lactic Acid (Lac-Hydrin 12% Lotion (225 G)) 1 applic TOP Q12 [facility] Last Admin: 04/13/17 08:16 Dose: 1 applic Lactulose (Enulose) 20 gm PO DAILY [facility] Last Admin: 04/13/17 08:18 Dose: Not Given Multivitamins/Minerals (Therapeutic-M Tab) 1 tab PO DAILY [facility] Last Admin: 04/13/17 08:14 Dose: 1 tab Nitroglycerin (Nitrostat Sl Tab) 0.4 mg SL Q5M PRN PRN Reason: Other Rifaximin (Xifaxan) 550 mg PO BID [facility] PRN Reason: Protocol Last Admin: 04/13/17 08:14 Dose: 550 mg Fluticasone/Salmeterol (Advair Diskus 250/50) 1 puff INH Q12 [facility] Last Admin: 04/13/17 08:13 Dose: 1 puff Sevelamer HCl (Renagel) 1,600 mg PO TID [facility] Last Admin: 04/13/17 08:15 Dose: 1,600 mg - Labs Labs: 04/12/17 15:50 04/12/17 15:50 PT 17.3 Seconds (9.8-13.1) H 03/18/17 05:20 INR 1.5 (0.9-1.2) H 03/18/17 05:20 APTT 39.1 Seconds (25.6-37.1) H 03/18/17 05:20
[2017-04-13 13:40] VITALS: BP 146/94; TEMP 98.1; O2SAT 97
--- NOTE | 2017-04-13 15:07 | CP.PCM.DIS ---
Provider - Provider Date of Admission: 03/17/17 21:30 Attending physician: Cory Junior Consults: Dr. Mancia, nephrology- for dialysis management Dr. Eller- for neurology Dr. Murillo- physiatry consultation Dr. Blake- podiatry; for aseptic trimming of nails Time Spent in preparation of Discharge (in minutes): 25 Diagnosis - Discharge Diagnosis (1) Altered mental status Status: Acute (2) CKD (chronic kidney disease) requiring chronic dialysis Status: Acute (3) CVA (cerebral vascular accident) Status: Acute (4) Chronic congestive heart failure Status: Acute (5) ESRD (end stage renal disease) Status: Acute Hospital Course - Lab Results Lab Results: Most Recent Lab Values WBC 4.7 K/uL (4.8-10.8) L 04/12/17 15:50 RBC 3.28 Mil/uL (4.40-5.90) L 04/12/17 15:50 Hgb 9.8 g/dL (12.0-18.0) L 04/12/17 15:50 Hct 30.2 % (35.0-51.0) L 04/12/17 15:50 MCV 92.1 fl (80.0-94.0) 04/12/17 15:50 MCH 29.9 pg (27.0-31.0) 04/12/17 15:50 MCHC 32.4 g/dL (33.0-37.0) L 04/12/17 15:50 RDW 15.2 % (11.5-14.5) H 04/12/17 15:50 Plt Count 125 K/uL (130-400) L 04/12/17 15:50 MPV 10.9 fl (7.2-11.7) 04/12/17 15:50 Neut % (Auto) 56.2 % (50.0-75.0) 04/12/17 15:50 Lymph % (Auto) 19.1 % (20.0-40.0) L 04/12/17 15:50 [place] % (Auto) 17.7 % (0.0-10.0) H 04/12/17 15:50 Eos % (Auto) 5.3 % (0.0-4.0) H 04/12/17 15:50 Baso % (Auto) 1.7 % (0.0-2.0) 04/12/17 15:50 Neut # 2.7 K/uL (1.8-7.0) 04/12/17 15:50 Lymph # 0.9 K/uL (1.0-4.3) L 04/12/17 15:50 [place] # 0.8 K/uL (0.0-0.8) 04/12/17 15:50 Eos # 0.2 K/uL (0.0-0.7) 04/12/17 15:50 Baso # 0.1 K/uL (0.0-0.2) 04/12/17 15:50 PT 17.3 Seconds (9.8-13.1) H 03/18/17 05:20 INR 1.5 (0.9-1.2) H 03/18/17 05:20 APTT 39.1 Seconds (25.6-37.1) H 03/18/17 05:20 Sodium 130 mmol/l (132-148) L 04/12/17 15:50 Potassium 5.5 MMOL/L (3.6-5.0) H 04/12/17 15:50 Chloride 96 mmol/L (98-107) L 04/12/17 15:50 Carbon Dioxide 21 mmol/L (22-30) L 04/12/17 15:50 Anion Gap 19 (10-20) 04/12/17 15:50 BUN 82 mg/dl (9-20) H 04/12/17 15:50 Creatinine 5.0 mg/dl (0.8-1.5) H 04/12/17 15:50 Est GFR ( Amer) 15 04/12/17 15:50 Est GFR (Non-Af Amer) 12 04/12/17 15:50 POC Glucose (mg/dL) 233 mg/dL (65-110) H 04/13/17 11:21 Random Glucose 165 mg/dL (75-110) H 04/12/17 15:50 Calcium 9.1 mg/dL (8.4-10.2) 04/12/17 15:50 Phosphorus 8.2 mg/dl (2.5-4.5) H 04/12/17 15:50 Magnesium 2.6 MG/DL (1.6-2.3) H 04/04/17 12:00 Total Bilirubin 3.5 mg/dl (0.2-1.3) H 04/05/17 16:15 AST 72 U/L (17-59) H D 04/05/17 16:15 ALT 58 U/L (21-72) 04/05/17 16:15 Alkaline Phosphatase 1517 U/L (38-126) H 04/05/17 16:15 Troponin I < 0.0120 ng/mL (0.00-0.120) 04/06/17 09:40 Total Protein 7.8 G/DL (6.3-8.2) 04/05/17 16:15 Albumin 3.4 g/dL (3.5-5.0) L 04/05/17 16:15 Globulin 4.4 gm/dL (2.2-3.9) H 04/05/17 16:15 Albumin/Globulin Ratio 0.8 (1.0-2.1) L 04/05/17 16:15 PTH Intact Whole Molec 89 pg/mL (14-64) H 04/12/17 16:52 Urine Collection Time 24 HRS 03/26/17 07:10 Urine Total Volume 100 mL 03/26/17 07:10 Ur Protein 24 Hr Calc 1177.0 mg/24hr (42-225) H 03/26/17 07:10 Hep Bs Antigen Negative (NEGATIVE) 03/22/17 16:14 Hep Bs Antibody Negative (NEGATIVE) 03/22/17 16:14 Hep B Core IgM Ab Negative (NEGATIVE) 03/22/17 16:14 - Hospital Course Hospital Course: This is a 51 year old male with a pmh of DM II, hypertension, liver cirrhosis, cardiomyopathy, HTN, CAD, PAD, CHF, anemia, arthritis, gastritis, depression, ESRD on dialysis MWF, who presented from [facility] ([facility]) to the acute rehabilitation at [facility] for continued management. He was found to have an acute CVA with left sided hemiparesis and slurred speech. During his stay at acute rehabilitation, he recieved PT/OT/ST which he cooperated with. His speech and strength gradually improved. He was continued on hemodialysis . DM was controlled with insulin sliding scale. He had overall an unremarkable stay and is stable for discharge to home today. 1. Acute CVA with left facial droop , slurred speech and left side weakness Consult with Dr Murillo Mold Tooling Technician appreciated Continue OT/PT Speech therapy continue aspirin and Plavix, and Lipitor 2. ESRD on HD MWF Consult Dr Mancia Nephrology for Dialysis appreciated Continue PhosLo, calcitriol, Procrit For HD today 3. DM II controlled Regular Insulin sliding scale according to Accucheck 4. CHF on Lasix Isosorbide Mononitrate 5. Cirrhosis continue Rifaximin,Lactulose, cholestyramine 6. COPD Continue Advair 7. Anemia of chronic kidney disease continue Epo 8. DVT prophylaxis Heparin Discharge Exam - Head Exam Head Exam: ATRAUMATIC, NORMAL INSPECTION, NORMOCEPHALIC - Additional Findings Additional findings: Constitutional- cooperative, awake, alert. Head- NCAT, PERRL Eye- PERRL, normal accommodation ENT- normal exam, MMM. Neck- normal inspection, supple, no JVD Respiratory- CTAB, no wheezes rales rhonchi Cardiovascular- RRR, +S1, +S2 no MRG GI/Abdominal- normal bowel sounds, soft, no mass, no hsm Skin- warm, dry Extremities Exam- normal capillary refill, normal inspection Neurological Exam- alert, stable gait Psych- normal mood, normal affect Discharge Plan - Discharge Medications Prescriptions: Ammonium Lactate 12% [Lac-Hydrin 12% Lotion (225 g)] 1 applic TOP Q12 #1 bottle Aspirin [Ecotrin] 81 mg PO DAILY #30 tabec Atorvastatin [Lipitor] 20 mg PO HS #30 tab Calcitriol 0.25 mcg PO DAILY #30 capsule Calcium Acetate [Phoslo] 667 mg PO TID #90 capsule Cholestyramine [Questran] 4 gm PO Q8 #30 packet Clopidogrel [Plavix] 75 mg PO DAILY #30 tab DiphenhydrAMINE [Benadryl] 12.5 mg PO Q6 PRN #1 bottle PRN Reason: Itching / Pruritus Famotidine [Pepcid] 20 mg PO 2100 #30 tab Fluticasone/Salmeterol 250/50 [Advair Diskus 250/50] 1 puff INH RQ12 #1 puff Furosemide [Lasix] 40 mg PO BID #60 tab Gabapentin [Neurontin] 300 mg PO DAILY #30 cap hydrALAZINE [Apresoline] 25 mg PO Q8 #90 tab Isosorbide Mononitrate [Imdur] 60 mg PO DAILY #30 tab Lactulose [Enulose] 20 gm PO DAILY #1 bottle Multivitamins [Hexavitamin] 1 tab PO DAILY #30 tab rifAXIMin [Xifaxan] 550 mg PO BID #60 tab Rosuvastatin Calcium [Crestor] 10 mg PO HS #30 tab Sevelamer [Renagel] 1,600 mg PO TID #90 tab - Follow Up Plan Condition: GOOD Disposition: HOME/ ROUTINE Instructions: Aspirin/Codeine (By mouth), Isosorbide Dinitrate (By mouth), Famotidine (By mouth), Furosemide (By mouth), Cholestyramine (By mouth), Multivitamins, Adult Formula (By mouth), Gabapentin (By mouth), Hydralazine (By mouth), Atorvastatin (By mouth), Clopidogrel (By mouth), Sevelamer (By mouth), Calcium Acetate (By mouth), Fluticasone/Salmeterol (By breathing), Ammonium Lactate (On the skin), Rosuvastatin (By mouth), Rifaximin (By mouth), Heart Failure (DC), Asthma (DC), Renal Failure Diet (DC), Dialysis Diet (DC), Heart Healthy Diet (DC), Ischemic Stroke (DC), Chronic Hypertension (DC), Fluid Restriction (DC), Anemia (DC), Dehydration (DC) Additional Instructions: Follow up with Dr. Bettie Cordova (PMD) [phone] in 2-3 weeks!, Neuro MD Dr. Tom Eller [phone] ([address] [place] [address] ) in 2-3 weeks!
== END 2017-04-13 14:31 | disposition home health service (06) | DRG 56 ==
PROVIDERS: ADMIT Internal Medicine; ATTEND Internal Medicine
PROC: F07Z9FZ Gait Training/Functional Ambulation Treatment using Assistive, Adaptive, Supportive or Protective Equipment (ICD-10-PCS; principal; 2017-03-17)
PROC: F07M6FZ Therapeutic Exercise Treatment of Musculoskeletal System - Whole Body using Assistive, Adaptive, Supportive or Protective Equipment (ICD-10-PCS; 2017-03-17)
PROC: F08Z4FZ Home Management Treatment using Assistive, Adaptive, Supportive or Protective Equipment (ICD-10-PCS; 2017-03-17)
PROC: 0HBRXZZ Excision of Toe Nail, External Approach (ICD-10-PCS; 2017-03-21)
PROC: 5A1D70Z Performance of Urinary Filtration, Intermittent, Less than 6 Hours Per Day (ICD-10-PCS; 2017-03-22)
DX: I69.354 Hemiplegia and hemiparesis following cerebral infarction affecting left non-dominant side (principal); I63.9 Cerebral infarction, unspecified; I13.2 Hypertensive heart and chronic kidney disease with heart failure and with stage 5 chronic kidney disease, or end stage renal disease; N17.9 Acute kidney failure, unspecified; I42.9 Cardiomyopathy, unspecified; N18.6 End stage renal disease; R18.8 Other ascites; E11.22 Type 2 diabetes mellitus with diabetic chronic kidney disease; N25.81 Secondary hyperparathyroidism of renal origin; E11.51 Type 2 diabetes mellitus with diabetic peripheral angiopathy without gangrene; E83.39 Other disorders of phosphorus metabolism; D63.1 Anemia in chronic kidney disease; E78.00 Pure hypercholesterolemia, unspecified; H54.61 Unqualified visual loss, right eye, normal vision left eye; H54.62 Unqualified visual loss, left eye, normal vision right eye; I25.10 Atherosclerotic heart disease of native coronary artery without angina pectoris; I50.9 Heart failure, unspecified; J44.9 Chronic obstructive pulmonary disease, unspecified; K74.60 Unspecified cirrhosis of liver; I69.392 Facial weakness following cerebral infarction; Z79.02 Long term (current) use of antithrombotics/antiplatelets; Z79.82 Long term (current) use of aspirin; Z79.4 Long term (current) use of insulin; Z86.73 Personal history of transient ischemic attack (TIA), and cerebral infarction without residual deficits; Z87.01 Personal history of pneumonia (recurrent); Z99.2 Dependence on renal dialysis; F32.9 Major depressive disorder, single episode, unspecified; F41.9 Anxiety disorder, unspecified; K29.70 Gastritis, unspecified, without bleeding; M19.90 Unspecified osteoarthritis, unspecified site; M25.562 Pain in left knee; R00.8 Other abnormalities of heart beat; R07.9 Chest pain, unspecified; R41.82 Altered mental status, unspecified; I69.322 Dysarthria following cerebral infarction; L60.8 Other nail disorders